=== PATIENT | male | born 1940 | race Caucasian/White ===

== ENCOUNTER 2016-08-16 18:03 | Emergency (ER) | payer MEDICARE, OTHER ==
[2016-08-16] MEDS ORDERED: Ondansetron 4 MG/2 ML SDV IVPUSH ONE (18:26)
[2016-08-16] MEDS ORDERED: Sodium Chloride 0.9% 1,000 ML IV SCH (18:30)
--- NOTE | 2016-08-16 18:56 | EDM.PDOC ---
<Dave Oden J - Last Filed: 08/16/16 18:51> ED HPI GENERAL MEDICAL PROBLEM - General Chief Complaint: Abdominal Pain Stated Complaint: CANT EAT RIGHT Time Seen by Provider: 08/16/16 18:26 - History of Present Illness INITIAL COMMENTS - FREE TEXT/NARRATIVE: HISTORY AND PHYSICAL: History of present illness: Patient is 75-year-old male history of diverticular disease who was treated approximately 2-3 weeks prior with an antibiotic for sore throat he states he had some GI distress at that time and a sense to recover his primary complaint relates to nausea and abdominal discomfort there've been no fever chills chest pain shortness breath or other concern Review of systems: As per history of present illness and below otherwise all systems reviewed and negative. Past medical history: As per history of present illness and as reviewed below otherwise noncontributory. Surgical history: As per history of present illness and as reviewed below otherwise noncontributory. Social history: No reported history of drug or alcohol abuse. Family history: As per history of present illness and as reviewed below otherwise noncontributory. Physical exam: HEENT: Atraumatic, normocephalic, pupils reactive, negative for conjunctival pallor or scleral icterus, mucous membranes moist, throat clear, neck supple, nontender, trachea midline. Lungs: Clear to auscultation, breath sounds equal bilaterally, chest nontender. Heart: S1S2, regular, negative for clicks, rubs, or JVD. Abdomen: Soft, protuberant with mild nonlocalized tenderness in lower abdomen. Negative for masses or hepatosplenomegaly. Negative for costovertebral tenderness. Pelvis: Stable nontender. Genitourinary: Deferred. Rectal: Deferred. Extremities: Atraumatic, negative for cords or calf pain. Neurovascular unremarkable. Neuro: Awake, alert, oriented. Cranial nerves II through XII unremarkable. Cerebellum unremarkable. Motor and sensory unremarkable throughout. Exam nonfocal. Diagnostics: CBC CMP amylase lipase UA EKG chest x-ray CT of abdomen/pelvis Therapeutics: Normal saline 1 L bolus Zofran 4 mg IV Impression: #1 abdominal pain #2 history of diverticular disease Definitive disposition and diagnosis as appropriate pending reevaluation and review of above. Abdominal Pain Score (Numeric/FACES): 7 - Related Data Allergies Allergy/AdvReac Type Severity Reaction Status Date / Time No Known Allergies Allergy Verified 09/01/13 16:21 Home Meds: Home Meds Metoprolol Succinate [Toprol XL] 50 mg PO DAILY 08/16/16 [History] Past Medical History HEENT History: Reports: Impaired Vision Cardiovascular History: Reports: Arrhythmia, High Cholesterol, Hypertension, Pacemaker Respiratory History: Reports: None Gastrointestinal History: Reports: Diverticulosis Genitourinary History: Reports: None Neurological History: Reports: None Psychiatric History: Reports: None Endocrine/Metabolic History: Reports: None Hematologic History: Reports: None Immunologic History: Reports: None Oncologic (Cancer) History: Reports: None Dermatologic History: Reports: None - Infectious Disease History Infectious Disease History: Reports: None - Past Surgical History Head Surgeries/Procedures: Reports: None GI Surgical History: Reports: Colonoscopy Social & Family History - Family History Family Medical History: Noncontributory - Tobacco Use Smoking Status *Q: Never Smoker Second Hand Smoke Exposure: No - Caffeine Use Caffeine Use: Reports: Coffee - Alcohol Use Days Per Week of Alcohol Use: 0 - Recreational Drug Use Recreational Drug Use: No ED ROS GENERAL - Review of Systems Review Of Systems: ROS reveals no pertinent complaints other than HPI. ED EXAM, GENERAL - Physical Exam Exam: See Below (Dictated) Course - Vital Signs Last Recorded V/S: Last Vital Signs Temp 36.7 C 08/16/16 18:14 Pulse 65 08/16/16 20:20 Resp 16 08/16/16 20:20 BP 181/88 H 08/16/16 20:20 Pulse Ox 97 08/16/16 20:20 - Orders/Labs/Meds Orders: Active Orders 24 hr Category Date Time Status EKG 12 Lead [EKG Documentation Completion] [RC] STAT Care 08/16/16 18:53 Active Abdomen Pelvis wo Cont [CT] Stat Exams 08/16/16 18:27 Taken Chest 2V [CR] Stat Exams 08/16/16 18:53 Taken CULTURE URINE [RM] Stat Lab 08/16/16 18:25 Received Ciprofloxacin [Ciprofloxacin HCl] Med 08/16/16 20:30 Once 500 mg PO ONETIME ONE Sodium Chloride 0.9% [Normal Saline] 1,000 ml Med 08/16/16 18:30 Active IV ASDIRECTED Medication Orders Ciprofloxacin (Ciprofloxacin Hcl) 500 mg PO ONETIME ONE Stop: 08/16/16 20:31 Sodium Chloride (Normal Saline) 1,000 mls @ 999 mls/hr IV ASDIRECTED [place] Last Admin: 08/16/16 18:33 Dose: 999 mls/hr Labs: Laboratory Tests 08/16/16 08/16/16 08/16/16 Range/Units 18:22 18:22 18:22 WBC 8.48 (4.0-11.0) K/uL RBC 4.90 (4.50-5.90) M/uL Hgb 13.8 (13.0-17.0) g/dL Hct 41.7 (38.0-50.0) % MCV 85.1 (80.0-98.0) fL MCH 28.2 (27.0-32.0) pg MCHC 33.1 (31.0-37.0) g/dL RDW Std Deviation 40.3 (28.0-62.0) fl RDW Coeff of Bambi 13 (11.0-15.0) % Plt Count 235 (150-400) K/uL MPV 10.00 (7.40-12.00) fL Neut % (Auto) 76.7 (48.0-80.0) % Lymph % (Auto) 13.4 L (16.0-40.0) % Coos % (Auto) 6.8 (0.0-15.0) % Eos % (Auto) 2.7 (0.0-7.0) % Baso % (Auto) 0.4 (0.0-1.5) % Neut # (Auto) 6.5 H (1.4-5.7) K/uL Lymph # (Auto) 1.1 (0.6-2.4) K/uL [place] # (Auto) 0.6 (0.0-0.8) K/uL Eos # (Auto) 0.2 (0.0-0.7) K/uL Baso # (Auto) 0.0 (0.0-0.1) K/uL Nucleated RBC % 0.0 /100WBC Nucleated RBCs # 0 K/uL Sodium 142 (136-146) mmol/L Potassium 4.3 (3.5-5.1) mmol/L Chloride 109 (98-110) mmol/L Carbon Dioxide 20 L (21-31) mmol/L BUN 21 (6.0-23.0) mg/dL Creatinine 1.3 (0.6-1.5) mg/dL Est Cr Clr Drug Dosing 50.61 mL/min Estimated GFR (MDRD) 54.1 ml/min Glucose 193 H (60-110) mg/dL Calcium 9.3 (8.8-10.8) mg/dL Total Bilirubin 0.3 (0.1-1.5) mg/dL AST 14 (5-40) IU/L ALT 20 (8-54) IU/L Alkaline Phosphatase 56 (40-150) Creatine Kinase (9-236) IU/L CK-MB (CK-2) (0-6.6) ng/ml Troponin I < 0.10 (0.0-0.29) NG/ML Total Protein 7.1 (6.0-8.0) g/dL Albumin 4.3 (3.4-4.8) g/dL Globulin 2.8 (2.0-3.5) g/dL Albumin/Globulin Ratio 1.5 (1.3-2.8) Amylase 59 (10-90) U/L Lipase 43 (7-80) U/L Urine Color Urine Appearance Urine pH (5.0-8.0) Ur Specific [place] (1.001-1.035) Urine Protein (NEGATIVE) mg/dL Urine Glucose (UA) (NEGATIVE) mg/dL Urine Ketones (NEGATIVE) mg/dL Urine Occult Blood (NEGATIVE) Urine Nitrite (NEGATIVE) Urine Bilirubin (NEGATIVE) Urine Urobilinogen (<2.0) EU/dL Ur Leukocyte Esterase (NEGATIVE) Urine RBC (0-2/HPF) Urine WBC (0-5/HPF) Ur Epithelial Cells (NONE-FEW) Urine Bacteria (NEGATIVE) 08/16/16 08/16/16 Range/Units 18:22 18:25 WBC (4.0-11.0) K/uL RBC (4.50-5.90) M/uL Hgb (13.0-17.0) g/dL Hct (38.0-50.0) % MCV (80.0-98.0) fL MCH (27.0-32.0) pg MCHC (31.0-37.0) g/dL RDW Std Deviation (28.0-62.0) fl RDW Coeff of Bambi (11.0-15.0) % Plt Count (150-400) K/uL MPV (7.40-12.00) fL Neut % (Auto) (48.0-80.0) % Lymph % (Auto) (16.0-40.0) % Coos % (Auto) (0.0-15.0) % Eos % (Auto) (0.0-7.0) % Baso % (Auto) (0.0-1.5) % Neut # (Auto) (1.4-5.7) K/uL Lymph # (Auto) (0.6-2.4) K/uL [place] # (Auto) (0.0-0.8) K/uL Eos # (Auto) (0.0-0.7) K/uL Baso # (Auto) (0.0-0.1) K/uL Nucleated RBC % /100WBC Nucleated RBCs # K/uL Sodium (136-146) mmol/L Potassium (3.5-5.1) mmol/L Chloride (98-110) mmol/L Carbon Dioxide (21-31) mmol/L BUN (6.0-23.0) mg/dL Creatinine (0.6-1.5) mg/dL Est Cr Clr Drug Dosing mL/min Estimated GFR (MDRD) ml/min Glucose (60-110) mg/dL Calcium (8.8-10.8) mg/dL Total Bilirubin (0.1-1.5) mg/dL AST (5-40) IU/L ALT (8-54) IU/L Alkaline Phosphatase (40-150) Creatine Kinase 69 (9-236) IU/L CK-MB (CK-2) 1.7 (0-6.6) ng/ml Troponin I (0.0-0.29) NG/ML Total Protein (6.0-8.0) g/dL Albumin (3.4-4.8) g/dL Globulin (2.0-3.5) g/dL Albumin/Globulin Ratio (1.3-2.8) Amylase (10-90) U/L Lipase (7-80) U/L Urine Color YELLOW Urine Appearance CLEAR Urine pH 6.0 (5.0-8.0) Ur Specific [place] 1.020 (1.001-1.035) Urine Protein NEGATIVE (NEGATIVE) mg/dL Urine Glucose (UA) NEGATIVE (NEGATIVE) mg/dL Urine Ketones NEGATIVE (NEGATIVE) mg/dL Urine Occult Blood TRACE-INTACT (NEGATIVE) Urine Nitrite NEGATIVE (NEGATIVE) Urine Bilirubin NEGATIVE (NEGATIVE) Urine Urobilinogen 0.2 (<2.0) EU/dL Ur Leukocyte Esterase NEGATIVE (NEGATIVE) Urine RBC 0-2 (0-2/HPF) Urine WBC 0-1 (0-5/HPF) Ur Epithelial Cells RARE (NONE-FEW) Urine Bacteria RARE (NEGATIVE) Meds: Medications Generic Name Dose Route Start Last Admin Trade Name Freq PRN Reason Stop Dose Admin Ciprofloxacin 500 mg 08/16/16 20:30 Ciprofloxacin Hcl PO 08/16/16 20:31 ONETIME ONE Sodium Chloride 1,000 mls @ 999 mls/hr 08/16/16 18:30 08/16/16 18:33 Normal Saline IV 999 mls/hr ASDIRECTED [place] Administration Discontinued Medications Generic Name Dose Route Start Last Admin Trade Name Freq PRN Reason Stop Dose Admin Ondansetron HCl 4 mg 08/16/16 18:26 08/16/16 18:34 Zofran IVPUSH 08/16/16 18:27 4 mg ONETIME ONE Administration Departure - Departure Disposition: Home, Self-Care 01 Clinical Impression: Abdominal pain, Nausea - Discharge Information Referrals: PCP,None [Primary Care Provider] - Forms: ED Department Discharge Additional Instructions: Medications as prescribed Return if symptoms persist or worsen or new concerning symptoms develop Urine cultures pending at this time Followup with primary care as scheduled at [facility] on Tuesday The following information is given to patients seen in the emergency department who are being discharged to home. This information is to outline your options for follow-up care. We provide all patients seen in our emergency department with a follow-up referral. The need for follow-up, as well as the timing and circumstances, are variable depending upon the specifics of your emergency department visit. If you don't have a primary care physician on staff, we will provide you with a referral. We always advise you to contact your personal physician following an emergency department visit to inform them of the circumstance of the visit and for follow-up with them and/or the need for any referrals to a consulting specialist. The emergency department will also refer you to a specialist when appropriate. This referral assures that you have the opportunity for follow-up care with a specialist. All of these measure are taken in an effort to provide you with optimal care, which includes your follow-up. Under all circumstances we always encourage you to contact your private physician who remains a resource for coordinating your care. When calling for follow-up care, please make the office aware that this follow-up is from your recent emergency room visit. If for any reason you are refused follow-up, please contact the [facility] emergency department at and asked to speak to the emergency department charge nurse. - My Orders Last 24 Hours: My Active Orders 08/16/16 18:25 CULTURE URINE [RM] Stat 08/16/16 20:30 Ciprofloxacin [Ciprofloxacin HCl] 500 mg PO ONETIME ONE - Assessment/Plan Last 24 Hours: My Active Orders 08/16/16 18:25 CULTURE URINE [RM] Stat 08/16/16 20:30 Ciprofloxacin [Ciprofloxacin HCl] 500 mg PO ONETIME ONE <Zeb Patricia - Last Filed: 08/16/16 20:36> ED HPI GENERAL MEDICAL PROBLEM - History of Present Illness INITIAL COMMENTS - FREE TEXT/NARRATIVE: Patient confirms above history, he is since treated with saline bolus and Zofran as above, and feeling much better from a nausea standpoint, he has had some intermittent low abdominal pain, lab as returned completely within normal limits including cardiac enzymes, CT abdomen pelvis to support a acute UTI which is ascending to the right kidney. His urinalysis is only significant for trace blood culture to this Again no fever nausea vomiting chills sweats no chest pain shortness breath headache dizziness or palpitation no bowel or urine symptoms this is post fluids and Zofran General no acute distress HEENT grossly within normal limits Chest clear throughout CV regular rate and rhythm Abdomen soft nontender on my exam Extremities full range of motion strength 5 out of 5 no edema [employer] alert nonfocal Lab as below CT abdomen pelvis EKG Chest x-ray Assessment CT evidence of ascending urinary tract infection Nausea resolved Plan Cipro 500 by mouth now and twice a day 10 days Zofran prescription provided Patient will be following up with his new primary provider Dr. Soria at [facility] in 2 days He did have a left bundle branch block on EKG I do not have an EKG for comparison at this time, although he does have known cardiac history followed by cardiology with a pacemaker placed Return if symptoms persist or worsen Medications as prescribed Followup with primary care and schedule Departure - Departure Time of Disposition: 20:35 Condition: good
[2016-08-16] MEDS ORDERED: Ciprofloxacin 500 MG Tab PO ONE (20:30)
[2016-08-16 20:44] VITALS: BP 182/89
--- NOTE | 2016-08-17 11:50 | CT ---
EXAM DATE: 08/16/16 PATIENT'S AGE: 75 Patient: CASIMIRO NUGENT Facility: [place], [place] Site . Site : 1940 Study: CT Abdomen/Pelvis [id number]/22/2017 7:22:20 PM Ordering Physician: Akshat Acosta Final Report: INDICATION: Abdominal pain. History of diverticulitis. Technique: CT abdomen and pelvis performed without oral IV contrast. Findings: Pacemaker leads in the heart. Osteopenia. Colonic diverticulosis without evidence diverticulitis. Contracted gallbladder with mild nonspecific stranding about the gallbladder. Moderate prostatic enlargement. Platelike atelectasis or scarring in both lungs. Mild patchy the ground-glass opacity in the in the mid and lower lungs the may be inflammatory or postinflammatory. Few tiny nodules in the lungs. Scattered the lesions involving both kidneys vary from low in density to nearly isodense. The low-density lesions are benign renal cysts. One isodense lesion which is slightly low-dense lesion in the left kidney on image 51 has Hounsfield density measurements of 11-12 should be a complex benign cyst and measures 2.4 cm. Benign nodular thickening right adrenal gland likely related to hyperplasia or adenomas. Nodular thickening of the low left adrenal gland likely related to similar etiology with more distinct 1.4 cm nodule in the left adrenal likely an adenoma. Mild soft tissue stranding about the right kidney and mid and proximal ureter without an identifiable ureteral stone to account for these findings. Findings suspicious for acute inflammation or edema of the right kidney. Acute pyelitis or pyelonephritis should be considered and excluded. Clinical and laboratory correlation recommended. If further imaging is desired to further characterize this and IV contrast-enhanced study could evaluate the right renal parenchyma for changes of pyelonephritis. Small cluster of focal high density in the right lower kidney measures 8 mm and is likely a collection of stones. Mild prominence of the right renal pelvis. Increase number of small lymph nodes in the abdomen and pelvis are not enlarged by CT criteria but are abnormally increased in number. The appendix is normal. Remainder negative. Impression: 1. Mild soft tissue stranding about the right kidney which is heterogeneous with the soft tissue stranding extending caudally along the right renal pelvis and the right mid and proximal ureter into the upper pelvis. The wall of the right ureter and renal pelvis may be mildly thickened. Findings most consistent with acute ascending urinary tract infection such as acute pyelitis and/or pyelonephritis. Clinical and laboratory correlation recommended. If it is desired CT with IV contrast could be performed to attempt to confirm these diagnoses. 2. Small fat containing periumbilical anterior abdominal wall hernia was not described above. 3. Small hyperdensity in the right lower kidney is likely a stone or cluster of stones. 4. Colonic diverticulosis. 5. Moderate prostatic enlargement. 6. Few small indeterminate nodules in the lung bases with patchy ground-glass opacity within the lung bases which is likely inflammatory or postinflammatory. 7. Bilateral renal cystic lesions varying from simple 2 benign complex cysts. 8. Nodularity in both adrenal glands indeterminate but most likely adenomas. Please note that all CT scans at this facility use dose modulation, iterative reconstruction, and/or weight-based dosing when appropriate to reduce radiation dose to as low as reasonably achievable. Dictated by Santino Pulliam MD @ Aug 16 2016 8:13PM (Electronic Signature) Report Signed by Proxy. PARDEEP
--- NOTE | 2016-08-17 11:51 | CR ---
EXAM DATE: 08/16/16 PATIENT'S AGE: 75 Patient: CASIMIRO NUGENT Facility: [place], [place] Site . Site : 1940 Study: XRay Chest [id number]/22/2017 7:22:34 PM Ordering Physician: Akshat Acosta Final Report: INDICATION: Abdominal pain TECHNIQUE: Chest 2 views. COMPARISON: None FINDINGS: Cardiovascular and mediastinum: Heart size and vasculature are normal in caliber and appearance. Mediastinum is within normal limits. Left-sided transvenous pacer device Lungs and pleural spaces: Lungs are clear. No sign of infiltrate or mass. No sign of pleural effusion. No pneumothorax. Bones and soft tissues: No significant findings. IMPRESSION: Unremarkable chest. Dictated by Taurus Campa MD @ 08/16/2016 8:06:40 PM Dictated by: Taurus Campa MD @ 08/16/2016 20:06:47 (Electronic Signature) Report Signed by Proxy. PARDEEP
== END 2016-08-16 20:40 | disposition home or self-care (01) ==
LOC: MW.ED 18:03
DX: R10.30 Lower abdominal pain, unspecified (principal); R11.0 Nausea; E78.00 Pure hypercholesterolemia, unspecified; I10 Essential (primary) hypertension
CPT/HCPCS: 36415; 71020; 74176; 80053; 81001; 82150; 82550; 82553; 83690; 84484; 85025; 87086; 93005; 96361; 96374; 99284; A9270; J2405; J7040

== ENCOUNTER 2016-12-07 04:20 | Observation (INO) | payer MEDICARE, OTHER ==
[2016-12-07] MEDS ORDERED: Sodium Chloride 0.9% 2.5 ML Syringe FLUSH PRN ×2 (04:28→07:48)
[2016-12-07] MEDS ORDERED: Nitroglycerin 2% Oint 1 GM UD Packet TOP ONE (04:28)
[2016-12-07] MEDS ORDERED: Sodium Chloride 0.9% 10 ML Syringe FLUSH PRN ×2 (04:28→07:48)
[2016-12-07] MEDS ORDERED: Sodium Chloride 0.9% 1,000 ML IV ONE (04:28)
[2016-12-07] MEDS ORDERED: Aspirin 81 MG Tab.Chew PO ONE (04:28)
--- NOTE | 2016-12-07 04:28 | EDM.PDOC ---
ED HPI GENERAL MEDICAL PROBLEM - General Stated Complaint: CHEST PAIN Time Seen by Provider: 12/07/16 04:26 - History of Present Illness INITIAL COMMENTS - FREE TEXT/NARRATIVE: HISTORY AND PHYSICAL: History of present illness: Patient is 76-year-old white male history of hypertension who presents with a concern of left chest pain he describes is in his axillary region he states it' s worse with deep breathing vaguely described no associated palpitations diaphoresis there is shortness of breath he denies prior stroke or heart attack he denies history of DVT or pulmonary embolism he denies trauma patient states he has a history of renal cell cancer and gets treatment here but can give no specifics Review of systems: As per history of present illness and below otherwise all systems reviewed and negative. Past medical history: As per history of present illness and as reviewed below otherwise noncontributory. Surgical history: As per history of present illness and as reviewed below otherwise noncontributory. Social history: No reported history of drug or alcohol abuse. Family history: As per history of present illness and as reviewed below otherwise noncontributory. Physical exam: HEENT: Atraumatic, normocephalic, pupils reactive, negative for conjunctival pallor or scleral icterus, mucous membranes moist, throat clear, neck supple, nontender, trachea midline. Lungs: Slightly diminished, breath sounds equal bilaterally, chest nontender. Heart: S1S2, regular, negative for clicks, rubs, or JVD. Abdomen: Soft, nondistended, nontender. Negative for masses or hepatosplenomegaly. Negative for costovertebral tenderness. Pelvis: Stable nontender. Genitourinary: Deferred. Rectal: Deferred. Extremities: Atraumatic, negative for cords or calf pain. Neurovascular unremarkable. Neuro: Awake, alert, oriented. Cranial nerves II through XII unremarkable. Cerebellum unremarkable. Motor and sensory unremarkable throughout. Exam nonfocal. Diagnostics: CBC CMP PT/INR troponin d-dimer chest x-ray EKG Therapeutics: IV O2 monitor Nitropaste 1 inch morphine sulfate 2 mg IV Zofran 4 mg IV aspirin 325 mg Impression: #1 chest pain #2 history of hypertension Definitive disposition and diagnosis as appropriate pending reevaluation and review of above. Left Chest Pain Score (Numeric/FACES): 8 - Related Data Allergies Allergy/AdvReac Type Severity Reaction Status Date / Time No Known Allergies Allergy Verified 12/07/16 04:36 Home Meds: Home Meds Metoprolol Succinate [Toprol XL] 50 mg PO DAILY 08/16/16 [History] Pazopanib HCl [Votrient] 800 mg PO DAILY 12/07/16 [History] Past Medical History HEENT History: Reports: Impaired Vision Cardiovascular History: Reports: Arrhythmia, High Cholesterol, Hypertension, Pacemaker Respiratory History: Reports: None Gastrointestinal History: Reports: Diverticulosis Genitourinary History: Reports: None Neurological History: Reports: None Psychiatric History: Reports: None Endocrine/Metabolic History: Reports: None Hematologic History: Reports: None Immunologic History: Reports: None Oncologic (Cancer) History: Reports: None Dermatologic History: Reports: None - Infectious Disease History Infectious Disease History: Reports: None - Past Surgical History Head Surgeries/Procedures: Reports: None GI Surgical History: Reports: Colonoscopy Social & Family History - Family History Family Medical History: Noncontributory - Tobacco Use Smoking Status *Q: Never Smoker Second Hand Smoke Exposure: No - Caffeine Use Caffeine Use: Reports: Coffee - Alcohol Use Days Per Week of Alcohol Use: 0 - Recreational Drug Use Recreational Drug Use: No ED ROS GENERAL - Review of Systems Review Of Systems: ROS reveals no pertinent complaints other than HPI. ED EXAM, GENERAL - Physical Exam Exam: See Below (Dictation) Course - Vital Signs Last Recorded V/S: Last Vital Signs Temp 36.3 C 12/07/16 04:29 Pulse 65 12/07/16 05:54 Resp 14 12/07/16 05:54 BP 131/90 12/07/16 05:54 Pulse Ox 97 12/07/16 05:54 - Orders/Labs/Meds Orders: Active Orders 24 hr Category Date Time Status Cardiac Monitoring [RC] . DIRECTED Care 12/07/16 04:28 Active EKG Documentation Completion [RC] STAT Care 12/07/16 04:29 Active Oxygen Therapy [RC] ASDIRECTED Care 12/07/16 04:28 Active Ang Chest [CT] Stat Exams 12/07/16 04:28 Taken Chest 1V Frontal [CR] Stat Exams 12/07/16 04:28 Taken Sodium Chloride 0.9% [Normal Saline] 1,000 ml Med 12/07/16 04:28 Active IV .Bolus Sodium Chloride 0.9% [Saline Flush] Med 12/07/16 04:28 Active 10 ml FLUSH ASDIRECTED PRN Sodium Chloride 0.9% [Saline Flush] Med 12/07/16 04:28 Active 2.5 ml FLUSH ASDIRECTED PRN Saline Lock Insert [OM.PC] Stat Oth 12/07/16 04:28 Ordered Medication Orders Sodium Chloride (Normal Saline) 1,000 mls @ 125 mls/hr IV .Bolus ONE Stop: 12/07/16 12:27 Last Admin: 12/07/16 04:39 Dose: 125 mls/hr Sodium Chloride (Saline Flush) 10 ml FLUSH ASDIRECTED PRN PRN Reason: Keep Vein Open Sodium Chloride (Saline Flush) 2.5 ml FLUSH ASDIRECTED PRN PRN Reason: Keep Vein Open Labs: Laboratory Tests 12/07/16 12/07/16 12/07/16 Range/Units 04:25 04:25 04:25 WBC 6.21 (4.0-11.0) K/uL RBC 5.12 (4.50-5.90) M/uL Hgb 15.6 (13.0-17.0) g/dL Hct 45.0 (38.0-50.0) % MCV 87.9 (80.0-98.0) fL MCH 30.5 (27.0-32.0) pg MCHC 34.7 (31.0-37.0) g/dL RDW Std Deviation 60.1 (28.0-62.0) fl RDW Coeff of Bambi 19 H (11.0-15.0) % Plt Count 163 (150-400) K/uL MPV 10.40 (7.40-12.00) fL Neut % (Auto) 60.1 (48.0-80.0) % Lymph % (Auto) 25.8 (16.0-40.0) % [place] % (Auto) 8.4 (0.0-15.0) % Eos % (Auto) 5.2 (0.0-7.0) % Baso % (Auto) 0.5 (0.0-1.5) % Neut # (Auto) 3.7 (1.4-5.7) K/uL Lymph # (Auto) 1.6 (0.6-2.4) K/uL [place] # (Auto) 0.5 (0.0-0.8) K/uL Eos # (Auto) 0.3 (0.0-0.7) K/uL Baso # (Auto) 0.0 (0.0-0.1) K/uL Nucleated RBC % 0.0 /100WBC Nucleated RBCs # 0 K/uL INR 1.03 (0.86-1.11) D-Dimer, Quantitative 1.32 H (0.0-0.52) mg/LFEU Sodium 140 (136-146) mmol/L Potassium 4.3 (3.5-5.1) mmol/L Chloride 108 (98-110) mmol/L Carbon Dioxide 21 (21-31) mmol/L BUN 25 H (6.0-23.0) mg/dL Creatinine 1.1 (0.6-1.5) mg/dL Est Cr Clr Drug Dosing 52.83 mL/min Estimated GFR (MDRD) > 60.0 ml/min Glucose 103 (60-110) mg/dL Calcium 9.1 (8.8-10.8) mg/dL Total Bilirubin 1.1 (0.1-1.5) mg/dL AST 33 (5-40) IU/L ALT 49 (8-54) IU/L Alkaline Phosphatase 61 (40-150) CK-MB (CK-2) (0-6.6) ng/ml Troponin I (0.0-0.29) NG/ML Total Protein 6.7 (6.0-8.0) g/dL Albumin 3.8 (3.4-4.8) g/dL Globulin 2.9 (2.0-3.5) g/dL Albumin/Globulin Ratio 1.3 (1.3-2.8) 12/07/16 12/07/16 Range/Units 04:25 04:25 WBC (4.0-11.0) K/uL RBC (4.50-5.90) M/uL Hgb (13.0-17.0) g/dL Hct (38.0-50.0) % MCV (80.0-98.0) fL MCH (27.0-32.0) pg MCHC (31.0-37.0) g/dL RDW Std Deviation (28.0-62.0) fl RDW Coeff of Bambi (11.0-15.0) % Plt Count (150-400) K/uL MPV (7.40-12.00) fL Neut % (Auto) (48.0-80.0) % Lymph % (Auto) (16.0-40.0) % [place] % (Auto) (0.0-15.0) % Eos % (Auto) (0.0-7.0) % Baso % (Auto) (0.0-1.5) % Neut # (Auto) (1.4-5.7) K/uL Lymph # (Auto) (0.6-2.4) K/uL [place] # (Auto) (0.0-0.8) K/uL Eos # (Auto) (0.0-0.7) K/uL Baso # (Auto) (0.0-0.1) K/uL Nucleated RBC % /100WBC Nucleated RBCs # K/uL INR (0.86-1.11) D-Dimer, Quantitative (0.0-0.52) mg/LFEU Sodium (136-146) mmol/L Potassium (3.5-5.1) mmol/L Chloride (98-110) mmol/L Carbon Dioxide (21-31) mmol/L BUN (6.0-23.0) mg/dL Creatinine (0.6-1.5) mg/dL Est Cr Clr Drug Dosing mL/min Estimated GFR (MDRD) ml/min Glucose (60-110) mg/dL Calcium (8.8-10.8) mg/dL Total Bilirubin (0.1-1.5) mg/dL AST (5-40) IU/L ALT (8-54) IU/L Alkaline Phosphatase (40-150) CK-MB (CK-2) 2.4 (0-6.6) ng/ml Troponin I < 0.10 (0.0-0.29) NG/ML Total Protein (6.0-8.0) g/dL Albumin (3.4-4.8) g/dL Globulin (2.0-3.5) g/dL Albumin/Globulin Ratio (1.3-2.8) Meds: Medications Generic Name Dose Route Start Last Admin Trade Name Freq PRN Reason Stop Dose Admin Sodium Chloride 1,000 mls @ 125 mls/hr 12/07/16 04:28 12/07/16 04:39 Normal Saline IV 12/07/16 12:27 125 mls/hr .Bolus ONE Administration Sodium Chloride 10 ml 12/07/16 04:28 Saline Flush FLUSH ASDIRECTED PRN Keep Vein Open Sodium Chloride 2.5 ml 12/07/16 04:28 Saline Flush FLUSH ASDIRECTED PRN Keep Vein Open Discontinued Medications Generic Name Dose Route Start Last Admin Trade Name Elvira PRN Reason Stop Dose Admin Aspirin 324 mg 12/07/16 04:28 12/07/16 04:39 Aspirin PO 12/07/16 04:29 324 mg ONETIME ONE Administration Enoxaparin Sodium 60 mg 12/07/16 06:00 Lovenox SUBCUT 12/07/16 06:01 ONETIME ONE Morphine Sulfate 2 mg 12/07/16 04:32 12/07/16 04:39 Morphine IVPUSH 12/07/16 04:33 2 mg ONETIME ONE Administration Nitroglycerin 1 gm 12/07/16 04:28 12/07/16 04:40 Nitro-Bid 2% TOP 12/07/16 04:29 1 gm ONETIME ONE Administration Ondansetron HCl 4 mg 12/07/16 04:32 12/07/16 04:39 Zofran IVPUSH 12/07/16 04:33 4 mg ONETIME ONE Administration Departure - Departure Time of Disposition: 06:05 Disposition: Admitted As Inpatient 68 Condition: Good Clinical Impression: Pulmonary embolism, Renal cell cancer - Discharge Information Referrals: Booker Xie MD [Primary Care Provider] - - My Orders Last 24 Hours: My Active Orders 12/07/16 04:28 Cardiac Monitoring [RC] . DIRECTED Oxygen Therapy [RC] ASDIRECTED Ang Chest [CT] Stat Chest 1V Frontal [CR] Stat Sodium Chloride 0.9% [Normal Saline] 1,000 ml IV .Bolus Sodium Chloride 0.9% [Saline Flush] 10 ml FLUSH ASDIRECTED PRN Sodium Chloride 0.9% [Saline Flush] 2.5 ml FLUSH ASDIRECTED PRN Saline Lock Insert [OM.PC] Stat 12/07/16 04:29 EKG Documentation Completion [RC] STAT - Assessment/Plan Last 24 Hours: My Active Orders 12/07/16 04:28 Cardiac Monitoring [RC] . DIRECTED Oxygen Therapy [RC] ASDIRECTED Ang Chest [CT] Stat Chest 1V Frontal [CR] Stat Sodium Chloride 0.9% [Normal Saline] 1,000 ml IV .Bolus Sodium Chloride 0.9% [Saline Flush] 10 ml FLUSH ASDIRECTED PRN Sodium Chloride 0.9% [Saline Flush] 2.5 ml FLUSH ASDIRECTED PRN Saline Lock Insert [OM.PC] Stat 12/07/16 04:29 EKG Documentation Completion [RC] STAT
[2016-12-07] MEDS ORDERED: Ondansetron 4 MG/2 ML SDV IVPUSH ONE (04:32)
[2016-12-07] MEDS ORDERED: Morphine 2 MG/ML Syringe IVPUSH ONE (04:32)
[2016-12-07 04:59] LABS: CHLORIDE,CL 108 mmol/L (98-110); SODIUM,NA 140 mmol/L (136-146)
[2016-12-07] MEDS ORDERED: Enoxaparin 60 MG/0.6 ML Syringe SUBCUT ONE (06:00)
[2016-12-07] MEDS ORDERED: Iopamidol 755 Mg/ML 100 ML Bottle IVPUSH STA (06:09)
[2016-12-07] MEDS ORDERED: Temazepam 15 MG Cap PO PRN (07:48)
[2016-12-07] MEDS ORDERED: Ondansetron 4 MG Tab.DIS PO PRN (07:48)
[2016-12-07] MEDS ORDERED: Docusate Sodium 100 MG Cap PO PRN (07:48)
[2016-12-07] MEDS ORDERED: HYDROmorphone 2 MG/ML Syringe IVPUSH PRN (07:48)
[2016-12-07] MEDS ORDERED: Acetaminophen 325 MG Tab PO PRN (07:48)
[2016-12-07] MEDS ORDERED: PAZOPANIB HCL 200 MG PO SCH (09:00)
[2016-12-07] MEDS ORDERED: Metoprolol Succinate 50 MG Tab.ER PO SCH (09:00)
--- NOTE | 2016-12-07 09:20 | PCM.HP ---
H&P History of Present Illness - General Date of Service: 12/07/16 Admit Problem/Dx: Admission Diagnosis/Problem Admission Diagnosis/Problem Pulmonary embolism Source of Information: Patient, Family History Limitations: Reports: No Limitations - History of Present Illness Initial Comments - Free Text/Narative: The patient is a 76-year-old gentleman is presented to the emergency room with chest pain. The patient reports that he has had left-sided chest pain which radiates into his arm and it has been worsened by deep breathing. The patient had no other associated symptoms. The patient underwent CT scan in the emergency department and was found to have small multiple pulmonary emboli as well as worsening of previously noted nodule. The patient does have a history of renal cell carcinoma and is currently undergoing chemotherapy. The patient also has had a pacemaker implanted in 2013. Onset of Symptoms: Reports: Gradual Duration of Symptoms: Reports: Day(s): Location: Reports: Chest Quality: Reports: Ache, Stabbing Severity: Mild Improves with: Reports: None Worsens with: Reports: Breathing Associated Symptoms: Reports: Shortness of Breath Left Chest Pain Score (Numeric/FACES): 1 - Related Data Allergies/Adverse Reactions: Allergies Allergy/AdvReac Type Severity Reaction Status Date / Time No Known Allergies Allergy Verified 12/07/16 04:36 Home Medications: Home Meds Metoprolol Succinate [Toprol XL] 50 mg PO DAILY 08/16/16 [History] Pazopanib HCl [Votrient] 800 mg PO DAILY 12/07/16 [History] Past Medical History HEENT History: Reports: Impaired Vision Cardiovascular History: Reports: Arrhythmia, High Cholesterol, Hypertension, Pacemaker Respiratory History: Reports: None Gastrointestinal History: Reports: Diverticulosis Genitourinary History: Reports: None Other Genitourinary History: renal cancer Neurological History: Reports: None Psychiatric History: Reports: None Endocrine/Metabolic History: Reports: None Hematologic History: Reports: None Immunologic History: Reports: None Oncologic (Cancer) History: Reports: Renal Dermatologic History: Reports: None - Infectious Disease History Infectious Disease History: Reports: Measles, Mumps - Past Surgical History Head Surgeries/Procedures: Reports: None GI Surgical History: Reports: Colonoscopy Social & Family History - Family History Family Medical History: Noncontributory - Tobacco Use Smoking Status *Q: Never Smoker Second Hand Smoke Exposure: No - Caffeine Use Caffeine Use: Reports: Tea, Other Other Caffeine Use: gatorade - Alcohol Use Days Per Week of Alcohol Use: 0 - Recreational Drug Use Recreational Drug Use: No H&P Review of Systems - Review of Systems: Review Of Systems: See Below General: Reports: Weakness, Fatigue HEENT: Reports: No Symptoms Pulmonary: Reports: Shortness of Breath, Pleuritic Chest Pain Cardiovascular: Reports: Chest Pain Gastrointestinal: Reports: No Symptoms Genitourinary: Reports: No Symptoms Musculoskeletal: Reports: No Symptoms Skin: Reports: No Symptoms Psychiatric: Reports: No Symptoms Neurological: Reports: No Symptoms Hematologic/Lymphatic: Reports: No Symptoms Immunologic: Reports: No Symptoms Exam - Exam Exam: See Below - Vital Signs Vital Signs: Last Vital Signs Temp 36.4 C 12/07/16 08:00 Pulse 60 12/07/16 08:00 Resp 18 12/07/16 08:00 BP 166/86 H 12/07/16 08:00 Pulse Ox 98 12/07/16 08:00 Weight: 69.6 kg - Exam Quality Assessment: Supplemental Oxygen General: Alert, Oriented, Cooperative HEENT: Conjunctiva Clear, Mucosa Moist & [place], Nares Patent Neck: Supple, Trachea Midline Lungs: Normal Respiratory Effort, Rhonchi Cardiovascular: Regular Rate, Regular Rhythm GI/Abdominal Exam: Normal Bowel Sounds, Soft, Non-Tender, No Distention Back Exam: Decreased Range of Motion Extremities: Normal Inspection, No Pedal Edema Skin: Warm, Dry Neurological: Cranial Nerves Intact Neuro Extensive - Mental Status: Alert, Oriented x3 Psychiatric: Alert, Normal Affect, Normal Mood - Patient Data Result Diagrams: 12/08/16 04:30 12/08/16 04:30 EKG INTERPRETATION EKG Interpretation Comments: Paced rhythm *Q Meaningful Use (ADM) - VTE *Q VTE Criteria *Q: - Stroke *Q Stroke Criteria *Q: - AMI *Q AMI Criteria *Q: - Problem List (1) Pulmonary embolism SNOMED Code(s): 41585947, 47519797 ICD Code: I26.99 - OTHER PULMONARY EMBOLISM WITHOUT ACUTE COR PULMONALE Status: Acute Priority: High Current Visit: Yes Qualifiers: Chronicity: acute Acute cor pulmonale presence: without acute cor pulmonale (2) Pacemaker SNOMED Code(s): 555188180, 274593987 ICD Code: Z95.0 - PRESENCE OF CARDIAC PACEMAKER Status: Chronic Priority : High Current Visit: Yes (3) Renal cell cancer SNOMED Code(s): 768834784, 385405831 ICD Code: C64.9 - MALIGNANT NEOPLASM OF UNSP KIDNEY, EXCEPT RENAL PELVIS Status: Chronic Priority: High Current Visit: Yes Qualifiers: Laterality: right Qualified Code(s): C64.1 - Malignant neoplasm of right kidney, except renal pelvis Problem List Initiated/Reviewed/Updated: Yes Orders Last 24hrs: Active Orders 24 hr Category Date Time Status Patient Status [ADT] Routine ADT 12/07/16 07:48 Active Cardiac Monitoring [RC] CONTINUOUS Care 12/07/16 07:49 Active Oxygen Therapy [RC] PRN Care 12/07/16 07:48 Active Telemetry Monitoring [Cardiac Monitoring] [RC] . Care 12/07/16 08:30 Active DIRECTED Up With Assistance [RC] ASDIRECTED Care 12/07/16 07:48 Active VTE/DVT Education [RC] PER UNIT ROUTINE Care 12/07/16 07:48 Active Vaccines to be Administered [RC] PER UNIT ROUTINE Care 12/07/16 07:51 Active Vital Signs [RC] Q4H Care 12/07/16 07:48 Active Regular Diet [DIET] Diet 12/07/16 Lunch Active Echo Comp wo Cont [US] Routine Exams 12/07/16 08:23 Ordered Acetaminophen [Tylenol] Med 12/07/16 07:48 Active 650 mg PO Q4H PRN Docusate Sodium [Colace] Med 12/07/16 07:48 Active 100 mg PO BID PRN Enoxaparin [Lovenox] Med 12/07/16 18:00 Active 70 mg SUBCUT Q12H HYDROmorphone [Dilaudid] Med 12/07/16 07:48 Active 0.5 mg IVPUSH Q2H PRN Metoprolol Succinate [Toprol XL] Med 12/07/16 09:00 Active 50 mg PO DAILY Ondansetron [Zofran ODT] Med 12/07/16 07:48 Active 4 mg PO Q6H PRN Patient's Own Medication [Ptom] Med 12/07/16 09:00 Active 4 each PO DAILY Sodium Chloride 0.9% [Saline Flush] Med 12/07/16 07:48 Active 10 ml FLUSH ASDIRECTED PRN Sodium Chloride 0.9% [Saline Flush] Med 12/07/16 07:48 Active 2.5 ml FLUSH ASDIRECTED PRN Temazepam [Restoril] Med 12/07/16 07:48 Active 15 mg PO BEDTIME PRN oxyCODONE Med 12/07/16 07:48 Active 5 mg PO Q4H PRN GM Immunization Reflex [OM.PC] Click To Edit Oth 12/07/16 07:48 Ordered Saline Lock Insert [OM.PC] Routine Oth 12/07/16 07:48 Ordered Resuscitation Status Routine Resus Stat 12/07/16 07:48 Ordered Medication Orders Acetaminophen (Tylenol) 650 mg PO Q4H PRN PRN Reason: Pain (Mild 1-3)/fever Docusate Sodium (Colace) 100 mg PO BID PRN PRN Reason: Constipation Enoxaparin Sodium (Lovenox) 70 mg SUBCUT Q12H [place] Stop: 12/13/16 06:00 Hydromorphone HCl (Dilaudid) 0.5 mg IVPUSH Q2H PRN PRN Reason: Pain (severe 7-10) Sodium Chloride (Normal Saline) 1,000 mls @ 125 mls/hr IV .Bolus ONE Stop: 12/07/16 12:27 Last Admin: 12/07/16 04:39 Dose: 125 mls/hr Metoprolol Succinate (Toprol Xl) 50 mg PO DAILY [facility] Ondansetron HCl (Zofran Odt) 4 mg PO Q6H PRN PRN Reason: nausea, able to take PO Oxycodone HCl (Oxycodone) 5 mg PO Q4H PRN PRN Reason: Pain (moderate 4-6) Pazopanib Hcl [ (Votrient] 200 Mg) 4 each PO DAILY [facility] Sodium Chloride (Saline Flush) 10 ml FLUSH ASDIRECTED PRN PRN Reason: Keep Vein Open Sodium Chloride (Saline Flush) 2.5 ml FLUSH ASDIRECTED PRN PRN Reason: Keep Vein Open Sodium Chloride (Saline Flush) 10 ml FLUSH ASDIRECTED PRN PRN Reason: Keep Vein Open Sodium Chloride (Saline Flush) 2.5 ml FLUSH ASDIRECTED PRN PRN Reason: Keep Vein Open Temazepam (Restoril) 15 mg PO BEDTIME PRN PRN Reason: Sleep Assessment/Plan Comment:: The patient is a 76-year-old gentleman who has renal cell carcinoma and is currently undergoing chemotherapy. The patient will be placed on treatment dose of Lovenox. This will be at 1 mg/kg every 12 hours. I did discussion with the pharmacist and with regards to interference with the patient's chemotherapy drug Coumadin and Pradaxa a good choices. The patient will likely need to be on this indefinitely. The patient will have a 2-D echocardiogram. The patient will be kept on IV fluids at 50 mL/m. He'll have a regular diet as tolerated. The patient will also have his laboratory testing and monitoring on a daily basis. The patient may be appropriate for discharge in 1-2 days depending upon his symptoms. The patient will also need to have close follow-up with oncology on discharge.
--- NOTE | 2016-12-07 10:30 | CR ---
EXAM DATE: 12/07/16 PATIENT'S AGE: 76 Patient: CASIMIRO NUGENT Facility: [place], [place] Site . Site : 1940 Study: XRay Chest [id number]/12/2017 5:39:32 AM Ordering Physician: Akshat Acosta Final Report: INDICATIONS: Shortness of breath. Chest pain. TECHNIQUE: Chest 1 view. COMPARISON: Chest radiograph August 16, 2016. Chest CT same day. FINDINGS: Intracardiac device appears appropriately positioned. No pneumothorax or pleural effusion. New or worsening irregular nodular opacities in the periphery of the right mid lung. Cardiac and mediastinal contours are stable. No additional significant change. IMPRESSION: New/worsening irregular nodular opacities in the right mid lung concerning for disease progression or possibly pneumonia as discussed on the recent chest CT. Dictated by Marquis Wilson MD @ 12/07/2016 6:04:32 AM Dictated by: Marquis Wilson MD @ 12/07/2016 06:04:51 (Electronic Signature) Report Signed by Proxy. [facility]
--- NOTE | 2016-12-07 10:31 | CT ---
EXAM DATE: 12/07/16 PATIENT'S AGE: 76 Patient: CASIMIRO NUGENT Facility: [place], [place] Site . Site : 1940 Study: CT Chest Angio [id number]/12/2017 5:40:36 AM Ordering Physician: Akshat Acosta Final Report: INDICATION: Difficulty breathing. Chest pain. Elevated D-dimer. TECHNIQUE: CT chest pulmonary angiogram acquired with IV contrast. COMPARISON: None FINDINGS: Cardiovascular structures: There is a small amount of right upper and right lower lobe pulmonary embolus. There is mild motion artifact. No definite additional pulmonary embolus. No saddle embolus or CT evidence of right heart strain. Aortic atherosclerosis and tortuosity. The thoracic aorta is otherwise unremarkable. Mild cardiomegaly and intracardiac device as before. Mediastinum and lebron: No mass or adenopathy. Lungs: No pneumothorax. Central airways are patent. Multiple bilateral irregular subcentimeter nodular and ground-glass opacities have slightly progressed. Mild bilateral scarring and atelectasis. Pleura and pericardium: No effusions. Chest wall and axilla: No mass or adenopathy. Bones: Degenerative changes of the spine. Upper abdomen: Unremarkable as imaged. IMPRESSION: Small amount of right upper and right lower lobe pulmonary embolus. Worsening bilateral subcentimeter nodular and ground-glass opacities concerning for progression of disease/metastasis or possibly infection in the appropriate clinical setting. Discussed with Dr. Oden at the time of dictation. Dictated by Marquis Wilson MD @ 12/07/2016 6:01:03 AM Dictated by: Marquis Wilson MD @ 12/07/2016 06:02:24 (Electronic Signature) Report Signed by Proxy. [facility]
[2016-12-07] MEDS: Enoxaparin 100 MG/1 ML Syringe SUBCUT SCH (17:37)
[2016-12-07] MEDS: oxyCODONE 5 MG Tab PO PRN (20:11)
[2016-12-08] MEDS: oxyCODONE 5 MG Tab PO PRN ×2 (03:23→09:19)
[2016-12-08 05:16] LABS: CHLORIDE,CL 106 mmol/L (98-110); SODIUM,NA 139 mmol/L (136-146)
[2016-12-08] MEDS: Enoxaparin 100 MG/1 ML Syringe SUBCUT SCH (05:24)
--- NOTE | 2016-12-08 08:52 | PCM.PN ---
- General Info Date of Service: 12/08/16 Admission Dx/Problem (Free Text): Admission Diagnosis/Problem Admission Diagnosis/Problem Pulmonary embolism Subjective Update: Subjectively the patient is doing better, less pain and shortness of breath. Functional Status: Reports: Pain Controlled, Tolerating Diet (Eating well) - Review of Systems General: Reports: No Symptoms HEENT: Reports: No Symptoms Pulmonary: Reports: Pleuritic Chest Pain Cardiovascular: Reports: No Symptoms Gastrointestinal: Reports: No Symptoms Genitourinary: Reports: No Symptoms Musculoskeletal: Reports: No Symptoms Skin: Reports: No Symptoms Neurological: Reports: No Symptoms Psychiatric: Reports: No Symptoms - Patient Data Vitals - Most Recent: Last Vital Signs Temp 37.0 C 12/08/16 04:00 Pulse 65 12/08/16 04:00 Resp 18 12/08/16 04:00 BP 131/92 H 12/08/16 04:00 Pulse Ox 96 12/08/16 04:00 Weight - Most Recent: 69.6 kg I&O - Last 24 Hours: Intake & Output 12/07/16 12/08/16 12/08/16 22:59 06:59 14:59 Intake Total 350 350 Output Total 410 450 Balance -60 -100 Lab Results Last 24 Hours: Laboratory Results - last 24 hr 12/08/16 12/08/16 Range/Units 04:30 04:30 WBC 5.58 (4.0-11.0) K/uL RBC 4.33 L (4.50-5.90) M/uL Hgb 13.1 (13.0-17.0) g/dL Hct 38.9 (38.0-50.0) % MCV 89.8 (80.0-98.0) fL MCH 30.3 (27.0-32.0) pg MCHC 33.7 (31.0-37.0) g/dL RDW Std Deviation 63.0 H (28.0-62.0) fl RDW Coeff of Bambi 19 H (11.0-15.0) % Plt Count 140 L (150-400) K/uL MPV 10.70 (7.40-12.00) fL Neut % (Auto) 69.5 (48.0-80.0) % Lymph % (Auto) 14.0 L (16.0-40.0) % [place] % (Auto) 11.8 (0.0-15.0) % Eos % (Auto) 4.3 (0.0-7.0) % Baso % (Auto) 0.4 (0.0-1.5) % Neut # (Auto) 3.9 (1.4-5.7) K/uL Lymph # (Auto) 0.8 (0.6-2.4) K/uL [place] # (Auto) 0.7 (0.0-0.8) K/uL Eos # (Auto) 0.2 (0.0-0.7) K/uL Baso # (Auto) 0.0 (0.0-0.1) K/uL Nucleated RBC % 0.0 /100WBC Nucleated RBCs # 0 K/uL Sodium 139 (136-146) mmol/L Potassium 4.6 (3.5-5.1) mmol/L Chloride 106 (98-110) mmol/L Carbon Dioxide 25 (21-31) mmol/L BUN 21 (6.0-23.0) mg/dL Creatinine 1.0 (0.6-1.5) mg/dL Est Cr Clr Drug Dosing 63.80 mL/min Estimated GFR (MDRD) > 60.0 ml/min Glucose 111 H (60-110) mg/dL Calcium 8.2 L (8.8-10.8) mg/dL Total Bilirubin 0.9 (0.1-1.5) mg/dL AST 25 (5-40) IU/L ALT 39 (8-54) IU/L Alkaline Phosphatase 51 (40-150) Total Protein 5.2 L (6.0-8.0) g/dL Albumin 3.2 L (3.4-4.8) g/dL Globulin 2.0 (2.0-3.5) g/dL Albumin/Globulin Ratio 1.6 (1.3-2.8) Med Orders - Current: Current Medications Acetaminophen (Tylenol) 650 mg PO Q4H PRN PRN Reason: Pain (Mild 1-3)/fever Docusate Sodium (Colace) 100 mg PO BID PRN PRN Reason: Constipation Enoxaparin Sodium (Lovenox) 70 mg SUBCUT Q12H [place] Stop: 12/13/16 06:00 Last Admin: 12/08/16 05:24 Dose: 70 mg Hydromorphone HCl (Dilaudid) 0.5 mg IVPUSH Q2H PRN PRN Reason: Pain (severe 7-10) Last Admin: 12/07/16 15:36 Dose: 0.5 mg Metoprolol Tartrate (Lopressor) 50 mg PO BID [facility] Ondansetron HCl (Zofran Odt) 4 mg PO Q6H PRN PRN Reason: nausea, able to take PO Oxycodone HCl (Oxycodone) 5 mg PO Q4H PRN PRN Reason: Pain (moderate 4-6) Last Admin: 12/08/16 03:23 Dose: 5 mg Pazopanib Hcl [ (Votrient] 200 Mg) 4 each PO DAILY@1700 [facility] Sodium Chloride (Saline Flush) 10 ml FLUSH ASDIRECTED PRN PRN Reason: Keep Vein Open Sodium Chloride (Saline Flush) 2.5 ml FLUSH ASDIRECTED PRN PRN Reason: Keep Vein Open Sodium Chloride (Saline Flush) 10 ml FLUSH ASDIRECTED PRN PRN Reason: Keep Vein Open Sodium Chloride (Saline Flush) 2.5 ml FLUSH ASDIRECTED PRN PRN Reason: Keep Vein Open Temazepam (Restoril) 15 mg PO BEDTIME PRN PRN Reason: Sleep Discontinued Medications Aspirin (Aspirin) 324 mg PO ONETIME ONE Stop: 12/07/16 04:29 Last Admin: 12/07/16 04:39 Dose: 324 mg Enoxaparin Sodium (Lovenox) 60 mg SUBCUT ONETIME ONE Stop: 12/07/16 06:01 Last Admin: 12/07/16 06:13 Dose: 60 mg Sodium Chloride (Normal Saline) 1,000 mls @ 125 mls/hr IV .Bolus ONE Stop: 12/07/16 12:27 Last Admin: 12/07/16 04:39 Dose: 125 mls/hr Iopamidol (Isovue-370 (76%)) 50 ml IVPUSH ONETIME STA Stop: 12/07/16 06:10 Last Admin: 12/07/16 06:10 Dose: 50 ml Metoprolol Succinate (Toprol Xl) 50 mg PO DAILY [facility] Last Admin: 12/07/16 10:19 Dose: 50 mg Morphine Sulfate (Morphine) 2 mg IVPUSH ONETIME ONE Stop: 12/07/16 04:33 Last Admin: 12/07/16 04:39 Dose: 2 mg Nitroglycerin (Nitro-Bid 2%) 1 gm TOP ONETIME ONE Stop: 12/07/16 04:29 Last Admin: 12/07/16 04:40 Dose: 1 gm Ondansetron HCl (Zofran) 4 mg IVPUSH ONETIME ONE Stop: 12/07/16 04:33 Last Admin: 12/07/16 04:39 Dose: 4 mg Pazopanib Hcl [ (Votrient] 200 Mg) 4 each PO DAILY [place] Last Admin: 12/07/16 10:19 Dose: Not Given - Exam Quality Assessment: No: Supplemental Oxygen General: Alert, Oriented, Cooperative, No Acute Distress HEENT: Pupils Equal, Pupils Reactive, EOMI Neck: Supple, Trachea Midline Lungs: Clear to Auscultation, Normal Respiratory Effort Cardiovascular: Regular Rhythm GI/Abdominal Exam: Normal Bowel Sounds, Soft, Non-Tender, No Distention Back Exam: Decreased Range of Motion Extremities: No Pedal Edema Skin: Warm, Dry, Intact Psy/Mental Status: Alert, Normal Affect - Problem List & Annotations (1) Pulmonary embolism SNOMED Code(s): 97800949, 19823813 Code(s): I26.99 - OTHER PULMONARY EMBOLISM WITHOUT ACUTE COR PULMONALE Status: Acute Priority: High Current Visit: Yes Qualifiers: Chronicity: acute Acute cor pulmonale presence: without acute cor pulmonale (2) Pacemaker SNOMED Code(s): 686209375, 130844125 Code(s): Z95.0 - PRESENCE OF CARDIAC PACEMAKER Status: Chronic Priority: High Current Visit: Yes Annotation/Comment:: Abnormal pacemaker pacing (3) Renal cell cancer SNOMED Code(s): 709092363, 412867801 Code(s): C64.9 - MALIGNANT NEOPLASM OF UNSP KIDNEY, EXCEPT RENAL PELVIS Status: Chronic Priority: High Current Visit: Yes Qualifiers: Laterality: right Qualified Code(s): C64.1 - Malignant neoplasm of right kidney, except renal pelvis - Problem List Review Problem List Initiated/Reviewed/Updated: Yes - My Orders Last 24 Hours: My Active Orders 12/07/16 07:48 Patient Status [ADT] Routine Oxygen Therapy [RC] PRN Up With Assistance [RC] ASDIRECTED Vital Signs [RC] Q4H Acetaminophen [Tylenol] 650 mg PO Q4H PRN Docusate Sodium [Colace] 100 mg PO BID PRN HYDROmorphone [Dilaudid] 0.5 mg IVPUSH Q2H PRN Ondansetron [Zofran ODT] 4 mg PO Q6H PRN Sodium Chloride 0.9% [Saline Flush] 10 ml FLUSH ASDIRECTED PRN Sodium Chloride 0.9% [Saline Flush] 2.5 ml FLUSH ASDIRECTED PRN Temazepam [Restoril] 15 mg PO BEDTIME PRN oxyCODONE 5 mg PO Q4H PRN GM Immunization Reflex [OM.PC] Click To Edit Saline Lock Insert [OM.PC] Routine Resuscitation Status Routine 12/07/16 07:49 Cardiac Monitoring [RC] CONTINUOUS 12/07/16 07:51 Vaccines to be Administered [RC] PER UNIT ROUTINE 12/07/16 08:23 Echo Comp wo Cont [US] Routine 12/07/16 08:30 Telemetry Monitoring [Cardiac Monitoring] [RC] Q8H 12/07/16 18:00 Enoxaparin [Lovenox] 70 mg SUBCUT Q12H 12/07/16 Lunch Regular Diet [DIET] 12/08/16 09:00 Metoprolol Tartrate [Lopressor] 50 mg PO BID 12/08/16 17:00 Patient's Own Medication [Ptom] 4 each PO DAILY@1700 - Plan Plan:: The patient is a 76-year-old gentleman is doing very well with his anticoagulation with Lovenox currently. The patient is doing subjectively okay however, his pacemaker has been showing some abnormalities. I will discuss this with system configuration specialist and refer the patient to him. The patient had been given a choice for anticoagulation between the use of Coumadin and Pradaxa and I've explained risk and benefits of both of these. The patient would like to be on Pradaxa for his anticoagulation. The patient also has worsening of a nodule that had been found on the CT scan and the nodule itself is suspicious. I've recommended that the patient follow-up with oncology very closely. For now the patient will be kept on his fluids as tolerated treatment dose of Lovenox and he will likely be transitioned to Pradaxa the following day on discharge. If cardiology has no further inputs with regards to the apparent pacemaker issue the patient can be considered for discharge home today.
[2016-12-08] MEDS ORDERED: Metoprolol Tartrate 50 MG Tab PO SCH (09:00)
--- NOTE | 2016-12-08 12:30 | PCM.DCSUM1 ---
Discharge Summary - Hospital Course Free Text/Narrative:: Patient was admitted secondary to pulmonary emboli Brief History: History of renal cell cancer under chemotherapy - Discharge Data Discharge Date: 12/08/16 Discharge Disposition: Home, Self-Care 01 Condition: Fair - Discharge Diagnosis/Problem(s) (1) Pulmonary embolism SNOMED Code(s): 05082569, 08271708 ICD Code: I26.99 - OTHER PULMONARY EMBOLISM WITHOUT ACUTE COR PULMONALE Status: Acute Priority: High Qualifiers: Chronicity: acute Acute cor pulmonale presence: without acute cor pulmonale (2) Pacemaker SNOMED Code(s): 443092402, 332284096 ICD Code: Z95.0 - PRESENCE OF CARDIAC PACEMAKER Status: Chronic Priority : High Problem Details: Abnormal pacemaker pacing, resolved noted to be artifact (3) Renal cell cancer SNOMED Code(s): 347491999, 274053210 ICD Code: C64.9 - MALIGNANT NEOPLASM OF UNSP KIDNEY, EXCEPT RENAL PELVIS Status: Chronic Priority: High Qualifiers: Laterality: right Qualified Code(s): C64.1 - Malignant neoplasm of right kidney, except renal pelvis - Patient Summary/Data Hospital Course: The patient is a 76-year-old gentleman is doing very well with his anticoagulation with Lovenox currently. The patient is doing subjectively okay however, his pacemaker has been showing some abnormalities. I will discuss this with ethylene plant helper and refer the patient to him. The patient had been given a choice for anticoagulation between the use of Coumadin and Pradaxa and I've explained risk and benefits of both of these. The patient would like to be on Pradaxa for his anticoagulation. The patient also has worsening of a nodule that had been found on the CT scan and the nodule itself is suspicious. I've recommended that the patient follow-up with oncology very closely. For now the patient will be kept on his fluids as tolerated treatment dose of Lovenox and he will likely be transitioned to Pradaxa the following day on discharge. If cardiology has no further inputs with regards to the apparent pacemaker issue the patient can be considered for discharge home today. The patient has been given a prescription for Pradaxa and he is to take 150 mg by mouth twice a day. I have advised him of the problems they can be associated with Pradaxa and Coumadin as well as the advantages of each. The patient has been recommended to follow-up with his oncologist as soon as possible. The patient will be discharged with recommendation to start Pradaxa tomorrow, continue on cardiac diet is tolerated, continue with activity as tolerated. The patient is also to follow-up with his primary care physician. The patient is hemodynamically stable and he'll be discharged with the above recommendations. - Discharge Plan Prescriptions/Med Rec: Dabigatran Etexilate Mesylate [Pradaxa] 150 mg PO BID #60 capsule oxyCODONE 5 mg PO Q4H PRN #14 tablet PRN Reason: Pain Home Medications: Home Meds Metoprolol Succinate [Toprol XL] 50 mg PO DAILY 08/16/16 [History] Pazopanib HCl [Votrient] 800 mg PO DAILY 12/07/16 [History] Dabigatran Etexilate Mesylate [Pradaxa] 150 mg PO BID #60 capsule 12/08/16 [Rx] oxyCODONE 5 mg PO Q4H PRN #14 tablet 12/08/16 [Rx] Patient Handouts: Oxycodone tablets or capsules, Dabigatran oral capsules, Pulmonary Embolism Referrals: [facility] [Outside] Booker Xei MD [Primary Care Provider] - 12/15/16 10:30 am - Discharge Summary/Plan Comment DC Time >30 min.: Yes - Patient Data Vitals - Most Recent: Last Vital Signs Temp 36.3 C 12/08/16 08:00 Pulse 84 12/08/16 09:10 Resp 22 H 12/08/16 08:00 BP 167/82 H 12/08/16 09:10 Pulse Ox 94 L 12/08/16 08:00 Weight - Most Recent: 69.6 kg I&O - Last 24 hours: Intake & Output 12/07/16 12/08/16 12/08/16 22:59 06:59 14:59 Intake Total 350 350 Output Total 410 450 Balance -60 -100 Lab Results - Last 24 hrs: Laboratory Results - last 24 hr 12/08/16 12/08/16 Range/Units 04:30 04:30 WBC 5.58 (4.0-11.0) K/uL RBC 4.33 L (4.50-5.90) M/uL Hgb 13.1 (13.0-17.0) g/dL Hct 38.9 (38.0-50.0) % MCV 89.8 (80.0-98.0) fL MCH 30.3 (27.0-32.0) pg MCHC 33.7 (31.0-37.0) g/dL RDW Std Deviation 63.0 H (28.0-62.0) fl RDW Coeff of Bambi 19 H (11.0-15.0) % Plt Count 140 L (150-400) K/uL MPV 10.70 (7.40-12.00) fL Neut % (Auto) 69.5 (48.0-80.0) % Lymph % (Auto) 14.0 L (16.0-40.0) % [place] % (Auto) 11.8 (0.0-15.0) % Eos % (Auto) 4.3 (0.0-7.0) % Baso % (Auto) 0.4 (0.0-1.5) % Neut # (Auto) 3.9 (1.4-5.7) K/uL Lymph # (Auto) 0.8 (0.6-2.4) K/uL [place] # (Auto) 0.7 (0.0-0.8) K/uL Eos # (Auto) 0.2 (0.0-0.7) K/uL Baso # (Auto) 0.0 (0.0-0.1) K/uL Nucleated RBC % 0.0 /100WBC Nucleated RBCs # 0 K/uL Sodium 139 (136-146) mmol/L Potassium 4.6 (3.5-5.1) mmol/L Chloride 106 (98-110) mmol/L Carbon Dioxide 25 (21-31) mmol/L BUN 21 (6.0-23.0) mg/dL Creatinine 1.0 (0.6-1.5) mg/dL Est Cr Clr Drug Dosing 63.80 mL/min Estimated GFR (MDRD) > 60.0 ml/min Glucose 111 H (60-110) mg/dL Calcium 8.2 L (8.8-10.8) mg/dL Total Bilirubin 0.9 (0.1-1.5) mg/dL AST 25 (5-40) IU/L ALT 39 (8-54) IU/L Alkaline Phosphatase 51 (40-150) Total Protein 5.2 L (6.0-8.0) g/dL Albumin 3.2 L (3.4-4.8) g/dL Globulin 2.0 (2.0-3.5) g/dL Albumin/Globulin Ratio 1.6 (1.3-2.8) Med Orders - Current: Current Medications Acetaminophen (Tylenol) 650 mg PO Q4H PRN PRN Reason: Pain (Mild 1-3)/fever Dabigatran (Pradaxa) 150 mg PO BID [facility] Docusate Sodium (Colace) 100 mg PO BID PRN PRN Reason: Constipation Enoxaparin Sodium (Lovenox) 70 mg SUBCUT Q12H [facility] Stop: 12/13/16 06:00 Last Admin: 12/08/16 05:24 Dose: 70 mg Hydromorphone HCl (Dilaudid) 0.5 mg IVPUSH Q2H PRN PRN Reason: Pain (severe 7-10) Last Admin: 12/07/16 15:36 Dose: 0.5 mg Metoprolol Tartrate (Lopressor) 50 mg PO BID [facility] Last Admin: 12/08/16 09:10 Dose: 50 mg Ondansetron HCl (Zofran Odt) 4 mg PO Q6H PRN PRN Reason: nausea, able to take PO Oxycodone HCl (Oxycodone) 5 mg PO Q4H PRN PRN Reason: Pain (moderate 4-6) Last Admin: 12/08/16 09:19 Dose: 5 mg Pazopanib Hcl [ (Votrient] 200 Mg) 4 each PO DAILY@1700 [facility] Sodium Chloride (Saline Flush) 10 ml FLUSH ASDIRECTED PRN PRN Reason: Keep Vein Open Sodium Chloride (Saline Flush) 2.5 ml FLUSH ASDIRECTED PRN PRN Reason: Keep Vein Open Sodium Chloride (Saline Flush) 10 ml FLUSH ASDIRECTED PRN PRN Reason: Keep Vein Open Sodium Chloride (Saline Flush) 2.5 ml FLUSH ASDIRECTED PRN PRN Reason: Keep Vein Open Temazepam (Restoril) 15 mg PO BEDTIME PRN PRN Reason: Sleep Discontinued Medications Aspirin (Aspirin) 324 mg PO ONETIME ONE Stop: 12/07/16 04:29 Last Admin: 12/07/16 04:39 Dose: 324 mg Dabigatran (Pradaxa) 150 mg PO BID [facility] Enoxaparin Sodium (Lovenox) 60 mg SUBCUT ONETIME ONE Stop: 12/07/16 06:01 Last Admin: 12/07/16 06:13 Dose: 60 mg Sodium Chloride (Normal Saline) 1,000 mls @ 125 mls/hr IV .Bolus ONE Stop: 12/07/16 12:27 Last Admin: 12/07/16 04:39 Dose: 125 mls/hr Iopamidol (Isovue-370 (76%)) 50 ml IVPUSH ONETIME STA Stop: 12/07/16 06:10 Last Admin: 12/07/16 06:10 Dose: 50 ml Metoprolol Succinate (Toprol Xl) 50 mg PO DAILY [facility] Last Admin: 12/07/16 10:19 Dose: 50 mg Morphine Sulfate (Morphine) 2 mg IVPUSH ONETIME ONE Stop: 12/07/16 04:33 Last Admin: 12/07/16 04:39 Dose: 2 mg Nitroglycerin (Nitro-Bid 2%) 1 gm TOP ONETIME ONE Stop: 12/07/16 04:29 Last Admin: 12/07/16 04:40 Dose: 1 gm Ondansetron HCl (Zofran) 4 mg IVPUSH ONETIME ONE Stop: 12/07/16 04:33 Last Admin: 12/07/16 04:39 Dose: 4 mg Pazopanib Hcl [ (Votrient] 200 Mg) 4 each PO DAILY [facility] Last Admin: 12/07/16 10:19 Dose: Not Given *Q Meaningful Use (DIS) - VTE *Q VTE Criteria *Q: - Stroke *Q Stroke Criteria *Q: - AMI *Q AMI Criteria *Q:
[2016-12-08 12:41] VITALS: BP 163/86
[2016-12-08] MEDS ORDERED: PAZOPANIB HCL 200 MG PO SCH (17:00)
--- NOTE | 2016-12-08 17:55 | PCM.PRNOTE ---
- Free Text/Narrative Note: Device interrogation 12/08/2016 [employer] Model advantio [id number] Mode DDDR LRL 60bpm % paced intrinsic rhythm pacer dependent Battery life 5.5 years Atrial lead sensin.5 mV capture threshold: 0.8 mV @ 0.4 ms impedance: 517 ohms Ventricular lead sensing: paced capture threshold: 0.5mV @ 0.4 ms impedance: 464 ohms episodes no recent episodes MS: 0 Imp: normally functioning dual chamber pacemaker plan f/u device check in 6 months
--- NOTE | 2016-12-09 10:21 | CONS ---
DATE OF CONSULTATION: 12/08/2016 DATE OF : 1940 PRIMARY CARE PHYSICIAN: Booker Xie MD REASON FOR CONSULTATION: Pacemaker evaluation. HISTORY OF PRESENT ILLNESS: This is a 76-year-old gentleman with history of pacemaker placement in 2014. Past medical history of hypertension and high cholesterol, who presented to the hospital with left-sided chest pain with shortness of breath. He underwent a CT scan that shows small multiple PEs. He also had a history of renal cell carcinoma, undergoing chemotherapy. I saw him because they saw the pacer spike; this seemed to be malfunctioning on the telemetry, and so I did check his pacemaker. The pacemaker interrogation seemed to be showing a normal functioning pacemaker. However, patient did not know the exact reason why he has a pacemaker and the only thing that he was told that he has an irregular heartbeat, and the only home medications include metoprolol 50 mg once a day and Votrient 800 mg once a day for his cancer. REVIEW OF SYSTEMS: Except chest pain, otherwise has been negative for 12-point review of systems. PAST MEDICAL HISTORY: Including: Status post pacemaker, hypertension, and hypercholesterolemia. FAMILY HISTORY: No family history of a heart attack. SOCIAL HISTORY: He denies smoking, drug use, or alcohol use. ALLERGIES: No known drug allergies. PHYSICAL EXAMINATION: VITAL SIGNS: The blood pressure is quite elevated at 170/96, currently is 163/86, heart rate of 84, temperature is 36.2, O2 saturation is 93 L on room air, and respiration rate is 22. HEENT: No pallor. No jaundice. No JVD. HEART: Normal S1 and S2. No murmur. LUNGS: Clear. ABDOMEN: Soft, nontender. Bowel sounds are present. No hepatosplenomegaly. EXTREMITIES: Legs; no edema. LABORATORY DATA AND IMAGING STUDIES: Investigations: CT scan of the chest angiogram shows small PE. Laboratory: CBC showed WBCs of 5.0, hematocrit 38.0, and platelets are 140,000. INR of 1.03. D-dimer is positive at 1.3. Sodium 139, potassium 4.0, chloride 103, bicarbonate 25, BUN 21, and creatinine is 1. Troponin was negative. EKG on December 07 at 4:00 a.m. did show pacemaker, V-paced, atrial-sensed. ASSESSMENT AND PLAN: This is a 76-year-old male, status post pacemaker, who presented to the hospital with chest pain, found to have a pulmonary embolism. From the pacemaker interrogation, this seemed to be functioning normally. From my standpoint, the patient can be discharged to home. DILLON WOODSON /[id number]
--- NOTE | 2016-12-09 16:40 | ECHO ---
EXAM DATE: 12/07/16 PATIENT'S AGE: 76 The echocardiogram report can be seen in this patient's EMR (Electronic Medical Record) in the Reports section. The report has also been scanned into PACS. PARDEEP
== END 2016-12-08 13:45 | disposition home or self-care (01) ==
LOC: MW.ED 04:20 → MW.MS 06:12 → INTOOBSV 06:12
PROVIDERS: ADMIT Internal Medicine; ATTEND Internal Medicine
DX: I26.99 Other pulmonary embolism without acute cor pulmonale (principal); C64.1 Malignant neoplasm of right kidney, except renal pelvis; I10 Essential (primary) hypertension; E78.00 Pure hypercholesterolemia, unspecified; Z95.0 Presence of cardiac pacemaker; Z98.890 Other specified postprocedural states; Z79.899 Other long term (current) drug therapy
CPT/HCPCS: 36415; 71010; 71275; 80053; 82553; 84484; 85025; 85379; 85610; 93005; 93306; 96361; 96372; 96374; 96375; 99285; A9270; J1170; J1650; J2270; J2405; J7040; Q9967; 99283; G0378

== ENCOUNTER 2017-01-03 06:46 | Day surgery (SDC) | payer MEDICARE, OTHER ==
[~2017-01-03 06:46] MED LIST: Lactated Ringers 1,000 ML IV SCH
[2017-01-03] MEDS ORDERED: Midazolam 1 MG/ML 2 ML SDV ONE (07:06)
[2017-01-03] MEDS ORDERED: fentaNYL 100 MCG/2 ML SDV ONE (07:07)
[2017-01-03] MEDS ORDERED: Propofol 200 MG/20 ML SDV ONE ×2 (07:09→08:23)
--- NOTE | 2017-01-03 07:10 | PCM.PREANE ---
Preanesthetic Assessment - Anesthesia/Transfusion/Family Hx Anesthesia History: Prior Anesthesia Without Reaction Family History of Anesthesia Reaction: No Transfusion History: No Prior Transfusion(s) Intubation History: Unknown - Review of Systems General: No Symptoms Pulmonary: No Symptoms Cardiovascular: No Symptoms Gastrointestinal: No Symptoms Neurological: No Symptoms Other: Reports: None - Physical Assessment Height: 1.75 m Weight: 71.214 kg ASA Class: 3 Mental Status: Alert & Oriented x3 Airway Class: Mallampati = 2 Dentition: Reports: Normal Dentition Thyro-Mental Finger Breadths: 3 Mouth Opening Finger Breadths: 3 ROM/Head Extension: Limited/Partial Lungs: Clear to Auscultation, Normal Respiratory Effort, Decreased Breath Sounds Cardiovascular: Regular Rate, Regular Rhythm - Allergies Allergies/Adverse Reactions: Allergies Allergy/AdvReac Type Severity Reaction Status Date / Time No Known Allergies Allergy Verified 12/30/16 11:49 - Blood Blood Available: No - Anesthesia Plan Pre-Op Medication Ordered: None - Acknowledgements Anesthesia Type Planned: MAC (general anesthesia back-up) Pt an Appropriate Candidate for the Planned Anesthesia: Yes Alternatives and Risks of Anesthesia Discussed w Pt/Guardian: Yes Pt/Guardian Understands and Agrees with Anesthesia Plan: Yes PreAnesthesia Questionnaire HEENT History: Reports: Impaired Vision Other HEENT History: uses reading glasses Cardiovascular History: Reports: Blood Clots/VTE/DVT (PE 12/06/16), High Cholesterol, Hypertension, Pacemaker Respiratory History: Reports: None Gastrointestinal History: Reports: Diverticulosis Genitourinary History: Reports: None Other Genitourinary History: 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 , in need of port for chemo Musculoskeletal History: Reports: Other (See Below) Other Musculoskeletal History: hip pain Neurological History: Reports: Other (See Below) Other Neuro History: hx of motion sickness Psychiatric History: Reports: None Endocrine/Metabolic History: Reports: None Hematologic History: Reports: None Immunologic History: Reports: None Oncologic (Cancer) History: Reports: Renal Other Oncologic History: current Dermatologic History: Reports: None - Infectious Disease History Infectious Disease History: Reports: Measles, Mumps - Past Surgical History Head Surgeries/Procedures: Reports: None HEENT Surgical History: Reports: None Other Cardiovascular Surgeries/Procedures: pacemaker placement 14 - SUBSTANCE USE Smoking Status *Q: Never Smoker Second Hand Smoke Exposure: No Days Per Week of Alcohol Use: 0 Recreational Drug Use History: No - HOME MEDS Home Medications: Home Meds Metoprolol Succinate [Toprol XL] 50 mg PO BID 08/16/16 [History] Dabigatran Etexilate Mesylate [Pradaxa] 150 mg PO BID #60 capsule 12/08/16 [Rx] - CURRENT (IN HOUSE) MEDS Current Meds: Current Medications Lactated Ringer's (Ringers, Lactated) 1,000 mls @ 125 mls/hr IV ASDIRECTED [place]
[2017-01-03] MEDS ORDERED: Bupivacaine 0.5% 10 ML SDV ONE (07:29)
[2017-01-03] MEDS ORDERED: Heparin Sodium 100 Units/ML 3 ML Syringe ONE (07:29)
[2017-01-03] MEDS ORDERED: Lidocaine 1% 20 ML MDV ONE (07:30)
[2017-01-03] MEDS ORDERED: ceFAZolin 2 GM in Premix Bag 1 BAG IV ONE (08:52)
[2017-01-03] MEDS ORDERED: Acetaminophen/HYDROcodone 325-5 MG Tab PO PRN (09:21)
--- NOTE | 2017-01-03 09:28 | PCM.OPNOTE ---
- General Post-Op/Procedure Note Date of Surgery/Procedure: 01/03/17 Operative Procedure(s): Placement of Bard PowerPort Pre Op Diagnosis: Metastatic renal cell carcinoma Post-Op Diagnosis: Same Anesthesia Technique: Local, MAC (ASA III) Primary Surgeon: Kishore Prieto Fluid Replacement, Intraop: 500 EBL in mLs: 5 Condition: Good Free Text/Narrative:: Dictation [id number]
[2017-01-03] MEDS ORDERED: Lactated Ringers 1,000 ML IV SCH (09:30)
--- NOTE | 2017-01-03 09:47 | CR ---
EXAMINATION: Portable chest radiograph. HISTORY: Port placement. Comparison: 12/07/2016. FINDINGS: The trachea is midline. The cardiomediastinal silhouette is within normal limits. No pulmonary infilt rates, effusions or pneumothorax. There is a right-sided portacatheter with tip in the SVC. There is a left-sided pacemaker. Interstitial prominence again noted most prominent within the apices and righ t midlung. Osseous structures appear unremarkable. IMPRESSION: Right-sided portacatheter noted with tip in good position without evidence of a pneumothorax.
[2017-01-03] MEDS ORDERED: Ondansetron 4 MG/2 ML SDV IVPUSH PRN (09:51)
[2017-01-03] MEDS: Morphine 10 MG/ML Syringe IVPUSH PRN ×2 (10:10→11:00)
--- NOTE | 2017-01-03 13:59 | OR ---
SURGEON: Kishore Prieto M.D. DATE OF PROCEDURE: 01/03/2017 OPERATION PERFORMED: Placement of Bard PowerPort catheter for upcoming chemotherapy. ANESTHESIA: Local MAC. ASA CLASSIFICATION: III. PREOPERATIVE DIAGNOSIS: Metastatic renal cell carcinoma, need for long-term IV access port. POSTOPERATIVE DIAGNOSIS: Metastatic renal cell carcinoma, need for long-term IV access port. ESTIMATED BLOOD LOSS: 5 mL. INTRAOPERATIVE FLUID REPLACEMENT: 500 mL of crystalloid. DESCRIPTION OF PROCEDURE: The patient was taken to the operating room and placed on the fluoroscopy table in the supine position. Time-out was called for appropriate identification of the patient and procedure. Monitored anesthesia care was provided. The right chest was prepped and draped sterilely. The right deltopectoral groove was marked out and the skin infiltrated with 1% Xylocaine and 0.5% Marcaine solution. The skin incision was made and deepened through the subcutaneous tissue, obtaining hemostasis with the use of electrocautery. The cephalic vein was identified and was of excellent quality. The vein was anesthetized with 1 mL of 1% Xylocaine. The vein was circumferentially dissected and ligated distally and encircled proximally with 2-0 Vicryl ties. A small venotomy was made and the heparin-flushed catheter placed through the venotomy and advanced from the cephalic vein into the subclavian vein, positioning it in the superior vena cava. This was confirmed with fluoroscopy. The stay sutures of 2-0 Vicryl were tied. Care was taken during this time to see that the catheter always remained a closed system, as it had been flushed with heparinized saline. Once that was accomplished and position confirmed, the site on the chest wall was chosen for the port. This was approximately 8 to 10 cm below the right deltopectoral incision. Again, the skin was infiltrated with 0.5% Marcaine solution and 1% Xylocaine. The skin incision was made and deepened through the skin into the subcutaneous space. Care was taken to keep this in the subcutaneous space. The tunneling device was used to connect the two incisions, and again with care taken to prevent an air embolus, the catheter was assembled to the port and positioned in a subcutaneous tunnel. With that accomplished, the catheter was cut to appropriate length, and again avoiding an air embolus, the catheter and port were connected with the connector securing it. The catheter was then flushed without difficulty. There was good return of blood, and the heparinized saline flows easily. The port was then secured to the subcutaneous tissue with multiple interrupted 2-0 silk sutures. The wounds were inspected for hemostasis and small bleeding sites were electrocoagulated. Both incisions were closed in 2 layers approximating the subcutaneous tissue with 3-0 Vicryl and the skin with subcuticular 4-0 Monocryl. Both incisions were Steri- Stripped and dressed with sterile Tegaderm pads. Sponge, needle, and instrument counts were all correct. The patient tolerated the procedure well and was taken to recovery room in stable condition. Chest x-ray will be obtained. FIDLE / KANDICE /[id number]
[2017-01-03 15:24] VITALS: BP 150/76
== END 2017-01-03 12:00 | disposition home or self-care (01) ==
LOC: MW.SDS 06:46
PROVIDERS: ATTEND Surgery
DX: C64.9 Malignant neoplasm of unspecified kidney, except renal pelvis (principal); C78.00 Secondary malignant neoplasm of unspecified lung; C79.51 Secondary malignant neoplasm of bone; I26.99 Other pulmonary embolism without acute cor pulmonale; E78.5 Hyperlipidemia, unspecified; I10 Essential (primary) hypertension; Z79.01 Long term (current) use of anticoagulants; Z79.899 Other long term (current) drug therapy; Z95.0 Presence of cardiac pacemaker
CPT/HCPCS: 36561; 71010; 76000; A9270; C1788; J0690; J1642; J2250; J2270; J2405; J3010; J7120; 00532; J2704

== ENCOUNTER 2017-01-08 03:43 | Emergency (ER) | payer MEDICARE, OTHER ==
[2017-01-08] MEDS ORDERED: Ketorolac 30 MG/ML SDV IVPUSH ONE (04:05)
[2017-01-08] MEDS ORDERED: Sodium Chloride 0.9% 1,000 ML IV ONE (04:05)
[2017-01-08] MEDS ORDERED: Sodium Chloride 0.9% 10 ML Syringe FLUSH PRN (04:05)
[2017-01-08] MEDS ORDERED: Sodium Chloride 0.9% 2.5 ML Syringe FLUSH PRN (04:05)
--- NOTE | 2017-01-08 04:11 | EDM.PDOC ---
ED HPI GENERAL MEDICAL PROBLEM - General Chief Complaint: Abdominal Pain Stated Complaint: LOWER ABDOMINAL PAIN Time Seen by Provider: 01/08/17 03:53 - History of Present Illness INITIAL COMMENTS - FREE TEXT/NARRATIVE: HISTORY AND PHYSICAL: History of present illness: The patient is a 76-year-old male who follows in our clinic and has a history of pacemaker placement hypertension hypercholesterolemia diverticulitis pulmonary embolus diagnosed in November of this year, metastatic renal cancer and recent port placement who presents with complaints of mid abdominal pain that started approximately 8 PM last evening, 8 hours ago. Patient has been eating and drinking normally and has been more constipated recently due to pain medication he is taking for his hip, the believes that it is oxycodone, and presents with mid- pain near his umbilicus that started gradually. There was no associated fever or radiation of the pain there was no nausea or vomiting. The patient has been urinating normally and has not had any black or bloody stools. He says that lately he has not had much of an appetite but he has been taking much by mouth. The patient has been on oral chemotherapy since his diagnosis 2-3 months ago and previously went off oral chemotherapy about 3 weeks ago and had his first IV chemotherapy just recently. He is scheduled for another treatment this coming week. Patient said he had some nausea and vomiting last week and went to the cancer center and got some IV medications and fluids and was much improved. This pain he has this evening he describes as a deep pain which is located mid abdomen but doesn't seem to radiate. He did not take anything specifically for the pain. The patient had port placement just recently and says he's been doing well from that standpoint. The patient does take anticoagulation therapy, Eliquis, for his PE recently patient denies chest pain cough runny nose or sore throat and has no extremity complaints back pain or neck pain. The patient states that this pain is very different than his diverticulitis or when he had issues with his kidney. When I asked the patient about his cancer and wear it may have spread he said that they don't tell him all the information he is not exactly sure. I thought it was metastatic as I read this on one of his prior notes. He has never had surgery on his kidney nor has he had radiation therapy. Review of systems: As per history of present illness and below otherwise all systems reviewed and negative. Past medical history: As per history of present illness and as reviewed below otherwise noncontributory. Surgical history: As per history of present illness and as reviewed below otherwise noncontributory. Social history: No reported history of drug or alcohol abuse. Family history: As per history of present illness and as reviewed below otherwise noncontributory. Physical exam: Gen.: Well-developed well-nourished man who is nontoxic and speaking clearly and easily in the ED. Vital signs have been reviewed by me. HEENT: Atraumatic, normocephalic, pupils reactive, negative for conjunctival pallor or scleral icterus, mucous membranes tacky, throat clear, neck supple, nontender, trachea midline. Lungs: Clear to auscultation, breath sounds equal bilaterally, chest nontender. At the right upper chest wall port is seen with some resolving ecchymosis but no erythema drainage or swelling or tenderness. Heart: S1S2, regular rate and rhythm no overt murmurs Abdomen: Soft, nondistended, mild tenderness on deep palpation in the periumbilical and lower abdominal areas bilaterally without rebound or guarding. Bowel sounds are hypoactive and there is no tympany on percussion. Negative for masses or hepatosplenomegaly. Negative for costovertebral tenderness. Pelvis: Stable nontender. Genitourinary: Deferred. Rectal: Deferred. Extremities: Atraumatic, negative for cords or calf pain. Neurovascular unremarkable. Neuro: Awake, alert, oriented. Cranial nerves II through XII unremarkable. Cerebellum unremarkable. Motor and sensory unremarkable throughout. Exam nonfocal. Diagnostics: CBC CMP amylase lipase lactic acid UA CT of the abdomen and pelvis Therapeutics: IV fluids Toradol I reviewed all testing results with the patient and at bedside including all the findings of the CT scan. There are aware that some of the findings are unchanged in some of the findings have progressed with respect to his cancer with there is no new event that will require admission. They are aware that his pain is likely due to his fecal loading and constipation. He took a dose of MiraLAX last night but he has not been taking a stool softener with this pain pills. He is on narcotics for his hip pain secondary to the metastatic lesion there. I advised them to start a stool softener daily and to take MiraLAX for the next few days more aggressively to help open things up. I also stressed the need for follow-up with primary care Impression: Abdominal pain/constipation with history of metastatic renal cell carcinoma with CT evidence of progression Definitive disposition and diagnosis as appropriate pending reevaluation and review of above. abdominal area Pain Score (Numeric/FACES): 8 - Related Data Allergies Allergy/AdvReac Type Severity Reaction Status Date / Time No Known Allergies Allergy Verified 01/08/17 03:54 Home Meds: Home Meds Metoprolol Succinate [Toprol XL] 50 mg PO BID 08/16/16 [History] Apixaban [Eliquis] 1 tab PO BID 01/08/17 [History] Metoclopramide [Reglan] 10 mg PO ASDIRECTED 01/08/17 [History] Nivolumab [Opdivo] 40 mg IV ASDIRECTED 01/08/17 [History] oxyCODONE [oxyCODONE] 1 tab PO Q6HRRT 01/08/17 [History] Past Medical History HEENT History: Reports: Impaired Vision Other HEENT History: uses reading glasses Cardiovascular History: Reports: Blood Clots/VTE/DVT (PE 12/06/16), High Cholesterol, Hypertension, Pacemaker Respiratory History: Reports: None Gastrointestinal History: Reports: Diverticulosis Genitourinary History: Reports: None Other Genitourinary History: 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 , in need of port for chemo Musculoskeletal History: Reports: Other (See Below) Other Musculoskeletal History: hip pain Neurological History: Reports: Other (See Below) Other Neuro History: hx of motion sickness Psychiatric History: Reports: None Endocrine/Metabolic History: Reports: None Hematologic History: Reports: None Immunologic History: Reports: None Oncologic (Cancer) History: Reports: Renal Other Oncologic History: current Dermatologic History: Reports: None - Infectious Disease History Infectious Disease History: Reports: Measles, Mumps - Past Surgical History Head Surgeries/Procedures: Reports: None HEENT Surgical History: Reports: None Other Cardiovascular Surgeries/Procedures: pacemaker placement Social & Family History - Family History Family Medical History: Noncontributory - Tobacco Use Smoking Status *Q: Never Smoker Second Hand Smoke Exposure: No - Caffeine Use Caffeine Use: Reports: Tea, Other Other Caffeine Use: gatorade - Alcohol Use Days Per Week of Alcohol Use: 0 - Recreational Drug Use Recreational Drug Use: No Drug Use in Last 12 Months: No ED ROS GENERAL - Review of Systems Review Of Systems: ROS reveals no pertinent complaints other than HPI. ED EXAM, GENERAL - Physical Exam Exam: See Below (See dictation) Course - Vital Signs Last Recorded V/S: Last Vital Signs Temp 36.1 C 01/08/17 03:58 Pulse 52 L 01/08/17 04:32 Resp 17 01/08/17 04:32 BP 141/72 H 01/08/17 04:32 Pulse Ox 95 01/08/17 04:32 - Orders/Labs/Meds Orders: Active Orders 24 hr Category Date Time Status Abdomen Pelvis w Cont [CT] Stat Exams 01/08/17 04:05 Taken Sodium Chloride 0.9% [Saline Flush] Med 01/08/17 04:05 Active 10 ml FLUSH ASDIRECTED PRN Sodium Chloride 0.9% [Saline Flush] Med 01/08/17 04:05 Active 2.5 ml FLUSH ASDIRECTED PRN Saline Lock Insert [OM.PC] Stat Oth 01/08/17 04:05 Ordered Medication Orders Sodium Chloride (Saline Flush) 10 ml FLUSH ASDIRECTED PRN PRN Reason: Keep Vein Open Last Admin: 01/08/17 04:24 Dose: 10 ml Sodium Chloride (Saline Flush) 2.5 ml FLUSH ASDIRECTED PRN PRN Reason: Keep Vein Open Last Admin: 01/08/17 04:29 Dose: 2.5 ml Labs: Laboratory Tests 01/08/17 01/08/17 01/08/17 Range/Units 04:14 04:23 04:23 WBC 8.30 (4.0-11.0) K/uL RBC 3.72 L (4.50-5.90) M/uL Hgb 11.3 L (13.0-17.0) g/dL Hct 34.6 L (38.0-50.0) % MCV 93.0 (80.0-98.0) fL MCH 30.4 (27.0-32.0) pg MCHC 32.7 (31.0-37.0) g/dL RDW Std Deviation 54.1 (28.0-62.0) fl RDW Coeff of Bambi 16 H (11.0-15.0) % Plt Count 291 (150-400) K/uL MPV 9.50 (7.40-12.00) fL Neut % (Auto) 79.5 (48.0-80.0) % Lymph % (Auto) 11.2 L (16.0-40.0) % [place] % (Auto) 7.2 (0.0-15.0) % Eos % (Auto) 1.9 (0.0-7.0) % Baso % (Auto) 0.2 (0.0-1.5) % Neut # (Auto) 6.6 H (1.4-5.7) K/uL Lymph # (Auto) 0.9 (0.6-2.4) K/uL [place] # (Auto) 0.6 (0.0-0.8) K/uL Eos # (Auto) 0.2 (0.0-0.7) K/uL Baso # (Auto) 0.0 (0.0-0.1) K/uL Nucleated RBC % 0.0 /100WBC Nucleated RBCs # 0 K/uL Lactate 1.0 (0.20-2.00) mmol/L Sodium (136-146) mmol/L Potassium (3.5-5.1) mmol/L Chloride (98-110) mmol/L Carbon Dioxide (21-31) mmol/L BUN (6.0-23.0) mg/dL Creatinine (0.6-1.5) mg/dL Est Cr Clr Drug Dosing mL/min Estimated GFR (MDRD) ml/min Glucose (60-110) mg/dL Calcium (8.8-10.8) mg/dL Total Bilirubin (0.1-1.5) mg/dL AST (5-40) IU/L ALT (8-54) IU/L Alkaline Phosphatase (40-150) Total Protein (6.0-8.0) g/dL Albumin (3.4-4.8) g/dL Globulin (2.0-3.5) g/dL Albumin/Globulin Ratio (1.3-2.8) Amylase (10-90) U/L Lipase (7-80) U/L Urine Color YELLOW Urine Appearance CLEAR Urine pH 6.0 (5.0-8.0) Ur Specific [place] 1.015 (1.001-1.035) Urine Protein NEGATIVE (NEGATIVE) mg/dL Urine Glucose (UA) NEGATIVE (NEGATIVE) mg/dL Urine Ketones NEGATIVE (NEGATIVE) mg/dL Urine Occult Blood LARGE H (NEGATIVE) Urine Nitrite NEGATIVE (NEGATIVE) Urine Bilirubin NEGATIVE (NEGATIVE) Urine Urobilinogen 0.2 (<2.0) EU/dL Ur Leukocyte Esterase NEGATIVE (NEGATIVE) Urine RBC 6-12 (0-2/HPF) Urine WBC 0-2 (0-5/HPF) Ur Epithelial Cells NOT SEEN (NONE-FEW) Urine Bacteria FEW (NEGATIVE) 01/08/17 Range/Units 04:23 WBC (4.0-11.0) K/uL RBC (4.50-5.90) M/uL Hgb (13.0-17.0) g/dL Hct (38.0-50.0) % MCV (80.0-98.0) fL MCH (27.0-32.0) pg MCHC (31.0-37.0) g/dL RDW Std Deviation (28.0-62.0) fl RDW Coeff of Bambi (11.0-15.0) % Plt Count (150-400) K/uL MPV (7.40-12.00) fL Neut % (Auto) (48.0-80.0) % Lymph % (Auto) (16.0-40.0) % [place] % (Auto) (0.0-15.0) % Eos % (Auto) (0.0-7.0) % Baso % (Auto) (0.0-1.5) % Neut # (Auto) (1.4-5.7) K/uL Lymph # (Auto) (0.6-2.4) K/uL [place] # (Auto) (0.0-0.8) K/uL Eos # (Auto) (0.0-0.7) K/uL Baso # (Auto) (0.0-0.1) K/uL Nucleated RBC % /100WBC Nucleated RBCs # K/uL Lactate (0.20-2.00) mmol/L Sodium 139 (136-146) mmol/L Potassium 3.9 (3.5-5.1) mmol/L Chloride 105 (98-110) mmol/L Carbon Dioxide 24 (21-31) mmol/L BUN 26 H (6.0-23.0) mg/dL Creatinine 1.2 (0.6-1.5) mg/dL Est Cr Clr Drug Dosing 54.01 mL/min Estimated GFR (MDRD) 59.2 ml/min Glucose 112 H (60-110) mg/dL Calcium 9.0 (8.8-10.8) mg/dL Total Bilirubin 0.4 (0.1-1.5) mg/dL AST 22 (5-40) IU/L ALT 36 (8-54) IU/L Alkaline Phosphatase 88 (40-150) Total Protein 6.1 (6.0-8.0) g/dL Albumin 3.4 (3.4-4.8) g/dL Globulin 2.7 (2.0-3.5) g/dL Albumin/Globulin Ratio 1.3 (1.3-2.8) Amylase 46 (10-90) U/L Lipase 28 (7-80) U/L Urine Color Urine Appearance Urine pH (5.0-8.0) Ur Specific [place] (1.001-1.035) Urine Protein (NEGATIVE) mg/dL Urine Glucose (UA) (NEGATIVE) mg/dL Urine Ketones (NEGATIVE) mg/dL Urine Occult Blood (NEGATIVE) Urine Nitrite (NEGATIVE) Urine Bilirubin (NEGATIVE) Urine Urobilinogen (<2.0) EU/dL Ur Leukocyte Esterase (NEGATIVE) Urine RBC (0-2/HPF) Urine WBC (0-5/HPF) Ur Epithelial Cells (NONE-FEW) Urine Bacteria (NEGATIVE) Meds: Medications Generic Name Dose Route Start Last Admin Trade Name Freq PRN Reason Stop Dose Admin Sodium Chloride 10 ml 01/08/17 04:05 01/08/17 04:24 Saline Flush FLUSH 10 ml ASDIRECTED PRN Administration Keep Vein Open Sodium Chloride 2.5 ml 01/08/17 04:05 01/08/17 04:29 Saline Flush FLUSH 2.5 ml ASDIRECTED PRN Administration Keep Vein Open Discontinued Medications Generic Name Dose Route Start Last Admin Trade Name Freq PRN Reason Stop Dose Admin Sodium Chloride 1,000 mls @ 999 mls/hr 01/08/17 04:05 01/08/17 04:24 Normal Saline IV 01/08/17 05:05 999 mls/hr STAT ONE Administration Ketorolac Tromethamine 30 mg 01/08/17 04:05 10/14/17 04:27 Toradol IVPUSH 10/14/17 04:06 30 mg ONETIME ONE Administration Departure - Departure Time of Disposition: 06:03 Disposition: Home, Self-Care 01 Condition: Good Clinical Impression: Abdominal pain Constipation Qualifiers: Constipation type: unspecified constipation type Qualified Code(s): K59.00 - Constipation, unspecified - Discharge Information Referrals: Booker Xei MD [Primary Care Provider] - Forms: ED Department Discharge Additional Instructions: The following information is given to patients seen in the emergency department who are being discharged to home. This information is to outline your options for follow-up care. We provide all patients seen in our emergency department with a follow-up referral. The need for follow-up, as well as the timing and circumstances, are variable depending upon the specifics of your emergency department visit. If you don't have a primary care physician on staff, we will provide you with a referral. We always advise you to contact your personal physician following an emergency department visit to inform them of the circumstance of the visit and for follow-up with them and/or the need for any referrals to a consulting specialist. The emergency department will also refer you to a specialist when appropriate. This referral assures that you have the opportunity for followup care with a specialist. All of these measure are taken in an effort to provide you with optimal care, which includes your followup. Under all circumstances we always encourage you to contact your private physician who remains a resource for coordinating your care. When calling for followup care, please make the office aware that this follow-up is from your recent emergency room visit. If for any reason you are refused follow-up, please contact the [facility] emergency department at and ask to speak to the emergency department charge nurse. [address] [place] [address] [facility] Primary care- Internal Medicine and Family [address] [address] Please connect with your provider at [facility] or one of our providers and also keep your appointment this week for your chemotherapy. Please start taking a daily stool softener such as Colace along with some Metamucil as long as you' re taking the pain pills for your hip pain as this will continue to constipate you. For today and tomorrow please take MiraLAX twice a day to help get things going. Push hydration and fiber rich foods. Please return to ER as needed and as discussed - My Orders Last 24 Hours: My Active Orders 01/08/17 04:05 Abdomen Pelvis w Cont [CT] Stat Sodium Chloride 0.9% [Saline Flush] 10 ml FLUSH ASDIRECTED PRN Sodium Chloride 0.9% [Saline Flush] 2.5 ml FLUSH ASDIRECTED PRN Saline Lock Insert [OM.PC] Stat - Assessment/Plan Last 24 Hours: My Active Orders 01/08/17 04:05 Abdomen Pelvis w Cont [CT] Stat Sodium Chloride 0.9% [Saline Flush] 10 ml FLUSH ASDIRECTED PRN Sodium Chloride 0.9% [Saline Flush] 2.5 ml FLUSH ASDIRECTED PRN Saline Lock Insert [OM.PC] Stat
[2017-01-08] MEDS ORDERED: Iopamidol 755 MG/ML 500 ML Multipack Bottle IVPUSH STA (06:18)
[2017-01-08 06:20] VITALS: BP 135/70
--- NOTE | 2017-01-10 10:55 | CT ---
EXAM DATE: 01/08/17 PATIENT'S AGE: 76 Patient: CASIMIRO NUGENT Facility: [place], [place] : 1940 Study: CT Abdomen/Pelvis [id number]/14/2017 5:30:39 AM Ordering Physician: CHARLOTTE Final Report: INDICATION: Abdominal pain. TECHNIQUE: CT abdomen and pelvis acquired with IV contrast. COMPARISON: CT abdomen and pelvis 11/30/2016. FINDINGS: Lower chest: Subcentimeter nodular opacities at the lung bases have increased. No pleural or pericardial effusions. Intracardiac device. . Liver: No focal lesions. . Spleen: Unremarkable. . Pancreas: Unremarkable. . Gallbladder and bile ducts: Unremarkable. . Kidneys: Infiltrative soft tissue lesion of the right kidney with soft tissue extension into the renal vein and IVC is again demonstrated. Diffuse right perinephric stranding is similar in appearance. Heterogeneous thickening and enhancement of the proximal urothelium is also similar in appearance. Left renal cyst. Delayed imaging of the kidneys demonstrates only minimal secretion of contrast material into the right renal collecting system. Normal excretion of contrast material on the left. No hydronephrosis. . Adrenal glands: New right adrenal nodule measures 2.2 x 2.1 cm. Thickening of the left adrenal gland is unchanged. . GI tract: Moderate colonic diverticulosis without evidence of acute diverticulitis. Diffuse fecal loading in the colon. No bowel obstruction or focal inflammatory changes involving the GI tract. No free intraperitoneal gas. Trace pelvic free fluid. . Vascular structures: Atherosclerotic disease. No abdominal aortic aneurysm. . Lymph nodes: Right retroperitoneal lymphadenopathy has progressed. For example, a lymph node on image 48 of series 201 measures 1.8 x 1.2 cm. . Pelvic Organs: Prostatomegaly. Bladder as imaged is unremarkable. . Bones: Ill-defined lytic lesion in the right posterior ilium is similar in appearance. Mild extra osseous tumor extension suspected. No evidence of acute, pathologic fracture. Degenerative changes of the spine and pelvis. 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 Metastatic right retroperitoneal lymphadenopathy has progressed. New or worsening metastatic nodule in the right adrenal gland. Progression of pulmonary parenchymal metastasis. Metastatic lesion in the right posterior ilium is similar in appearance. Dictated by Marquis Wilson MD @ 01/08/2017 5:54:01 AM Dictated by: Marquis Wilson MD @ 01/08/2017 05:54:28 (Electronic Signature) Report Signed by Proxy. [facility]
== END 2017-01-08 06:22 | disposition home or self-care (01) ==
LOC: MW.ED 03:43
DX: K59.00 Constipation, unspecified (principal); I10 Essential (primary) hypertension; E78.00 Pure hypercholesterolemia, unspecified; C64.9 Malignant neoplasm of unspecified kidney, except renal pelvis; C78.00 Secondary malignant neoplasm of unspecified lung; Z95.0 Presence of cardiac pacemaker; Z86.718 Personal history of other venous thrombosis and embolism
CPT/HCPCS: 74177; 80053; 81001; 82150; 83605; 83690; 85025; 96361; 96374; 99284; J1885; J7040; Q9967; 99283

== ENCOUNTER 2017-02-13 15:33 | Inpatient (IN) | payer MEDICARE, OTHER ==
[2017-02-13] MEDS ORDERED: Ondansetron 4 MG/2 ML SDV IVPUSH ONE (15:58)
--- NOTE | 2017-02-13 16:00 | EDM.PDOC ---
ED HPI GENERAL MEDICAL PROBLEM - General Chief Complaint: Abdominal Pain Stated Complaint: ABDOMINAL PAIN Time Seen by Provider: 02/13/17 15:59 Source of Information: Reports: Patient - History of Present Illness INITIAL COMMENTS - FREE TEXT/NARRATIVE: HISTORY AND PHYSICAL: History of present illness: []Patient with history of renal cell carcinoma with metastasis on chemotherapy and history of diverticulitis presents with left lower quadrant pain 8 out of 10 nonradiating consistent with diverticulitis is had fever and is diaphoretic at current intermittent nausea decreased appetite over the last 2-3 days home medication is not controlling pain, he is more comfortable after morphine and Zofran Review of systems: As per history of present illness and below otherwise all systems reviewed and negative. Past medical history: As per history of present illness and as reviewed below otherwise noncontributory. Surgical history: As per history of present illness and as reviewed below otherwise noncontributory. Social history: No reported history of drug or alcohol abuse. Family history: As per history of present illness and as reviewed below otherwise noncontributory. Physical exam: HEENT: Atraumatic, normocephalic, pupils reactive, negative for conjunctival pallor or scleral icterus, mucous membranes moist, throat clear, neck supple, nontender, trachea midline. Lungs: Clear to auscultation, breath sounds equal bilaterally, chest nontender. Heart: S1S2, regular, negative for clicks, rubs, or JVD. Abdomen: Soft, nondistended, nontender. Negative for masses or hepatosplenomegaly. Negative for costovertebral tenderness. Pelvis: Stable nontender. Genitourinary: Deferred. Rectal: Deferred. Extremities: Atraumatic, negative for cords or calf pain. Neurovascular unremarkable. Neuro: Awake, alert, oriented. Cranial nerves II through XII unremarkable. Cerebellum unremarkable. Motor and sensory unremarkable throughout. Exam nonfocal. Diagnostics: [CBC CMP cardiac enzymes amylase lipase blood cultures pending UA CT abdomen pelvis with contrast EKG Chest 1 view] Therapeutics: [Liter normal saline bolus Normal saline 1 25 mL per hour Zofran 8 mg IV Morphine 2 mg IV Cipro 400 mg IV Flagyl 500 mg IV ] Impression: Fever Renal cell carcinoma with metastasis receiving chemotherapy []Abdominal pain History of diverticulitis clinically this would represent diverticulitis Definitive disposition and diagnosis as appropriate pending reevaluation and review of above. abdomen Pain Score (Numeric/FACES): 7 - Related Data Allergies Allergy/AdvReac Type Severity Reaction Status Date / Time No Known Allergies Allergy Verified 01/08/17 03:54 Home Meds: Home Meds Metoprolol Succinate [Toprol XL] 50 mg PO BID 08/16/16 [History] Apixaban [Eliquis] 1 tab PO BID 01/08/17 [History] Metoclopramide [Reglan] 10 mg PO ASDIRECTED 01/08/17 [History] Nivolumab [Opdivo] 40 mg IV ASDIRECTED 01/08/17 [History] oxyCODONE [oxyCODONE] 1 tab PO Q6HRRT 01/08/17 [History] Past Medical History HEENT History: Reports: Impaired Vision Other HEENT History: uses reading glasses Cardiovascular History: Reports: Blood Clots/VTE/DVT, High Cholesterol, Hypertension, Pacemaker Respiratory History: Reports: None Gastrointestinal History: Reports: Diverticulosis Genitourinary History: Reports: None Other Genitourinary History: 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 , in need of port for chemo Musculoskeletal History: Reports: Other (See Below) Other Musculoskeletal History: hip pain Neurological History: Reports: Other (See Below) Other Neuro History: hx of motion sickness Psychiatric History: Reports: None Endocrine/Metabolic History: Reports: None Hematologic History: Reports: None Immunologic History: Reports: None Oncologic (Cancer) History: Reports: Renal Other Oncologic History: current Dermatologic History: Reports: None - Infectious Disease History Infectious Disease History: Reports: Measles, Mumps - Past Surgical History Head Surgeries/Procedures: Reports: None HEENT Surgical History: Reports: None Other Cardiovascular Surgeries/Procedures: pacemaker placement Social & Family History - Family History Family Medical History: Noncontributory - Tobacco Use Smoking Status *Q: Never Smoker Second Hand Smoke Exposure: No - Caffeine Use Caffeine Use: Reports: Tea, Other Other Caffeine Use: gatorade - Alcohol Use Days Per Week of Alcohol Use: 0 - Recreational Drug Use Recreational Drug Use: No Drug Use in Last 12 Months: No ED ROS GENERAL - Review of Systems Review Of Systems: ROS reveals no pertinent complaints other than HPI. ED EXAM, GENERAL - Physical Exam Exam: See Below Course - Vital Signs Last Recorded V/S: Last Vital Signs Temp 100.3 F 02/13/17 15:46 Pulse 103 H 02/13/17 15:46 Resp 18 02/13/17 15:46 BP 123/62 02/13/17 15:46 Pulse Ox 95 02/13/17 15:46 - Orders/Labs/Meds Orders: Active Orders 24 hr Category Date Time Status EKG Documentation Completion [RC] STAT Care 02/13/17 15:58 Active Abdomen Pelvis w Cont [CT] Stat Exams 02/13/17 16:25 Taken CULTURE BLOOD [BC] Stat Lab 02/13/17 16:14 Received CULTURE BLOOD [BC] Stat Lab 02/13/17 17:06 Received UA W/MICROSCOPIC [URIN] Stat Lab 02/13/17 15:58 Uncollected Sodium Chloride 0.9% [Normal Saline] 1,000 ml Med 02/13/17 16:00 Active IV STAT metroNIDAZOLE/Normal Saline [Flagyl 500 MG in NS 100 ML Med 02/13/17 18:49 Ordered ] 500 mg Premix Bag 1 bag IV ONETIME Blood Culture x2 Reflex Set [OM.PC] Stat Oth 02/13/17 16:32 Ordered Medication Orders Sodium Chloride (Normal Saline) 1,000 mls @ 125 mls/hr IV STAT [place] Last Admin: 02/13/17 16:54 Dose: 125 mls/hr Metronidazole 500 mg/ Premix 100 mls @ 100 mls/hr IV ONETIME ONE Stop: 02/13/17 19:48 Labs: Laboratory Tests 02/13/17 02/13/17 Range/Units 16:14 16:14 WBC 11.26 H (4.0-11.0) K/uL RBC 3.22 L (4.50-5.90) M/uL Hgb 9.3 L (13.0-17.0) g/dL Hct 28.8 L (38.0-50.0) % MCV 89.4 (80.0-98.0) fL MCH 28.9 (27.0-32.0) pg MCHC 32.3 (31.0-37.0) g/dL RDW Std Deviation 49.9 (28.0-62.0) fl RDW Coeff of Bambi 15 (11.0-15.0) % Plt Count 187 (150-400) K/uL MPV 9.90 (7.40-12.00) fL Neut % (Auto) 89.5 H (48.0-80.0) % Lymph % (Auto) 3.6 L (16.0-40.0) % Elbert % (Auto) 6.0 (0.0-15.0) % Eos % (Auto) 0.8 (0.0-7.0) % Baso % (Auto) 0.1 (0.0-1.5) % Neut # (Auto) 10.1 H (1.4-5.7) K/uL Lymph # (Auto) 0.4 L (0.6-2.4) K/uL Elbert # (Auto) 0.7 (0.0-0.8) K/uL Eos # (Auto) 0.1 (0.0-0.7) K/uL Baso # (Auto) 0.0 (0.0-0.1) K/uL Nucleated RBC % 0.0 /100WBC Nucleated RBCs # 0 K/uL Sodium 135 L (136-146) mmol/L Potassium 4.4 (3.5-5.1) mmol/L Chloride 102 (98-110) mmol/L Carbon Dioxide 23 (21-31) mmol/L BUN 19 (6.0-23.0) mg/dL Creatinine 1.1 (0.6-1.5) mg/dL Est Cr Clr Drug Dosing 56.32 mL/min Estimated GFR (MDRD) > 60.0 ml/min Glucose 143 H (60-110) mg/dL Calcium 8.6 L (8.8-10.8) mg/dL Total Bilirubin 0.6 (0.1-1.5) mg/dL AST 11 (5-40) IU/L ALT 15 (8-54) IU/L Alkaline Phosphatase 85 (40-150) Troponin I < 0.10 (0.0-0.29) NG/ML Total Protein 6.1 (6.0-8.0) g/dL Albumin 3.3 L (3.4-4.8) g/dL Globulin 2.8 (2.0-3.5) g/dL Albumin/Globulin Ratio 1.2 L (1.3-2.8) Amylase 50 (10-90) U/L Lipase 23 (7-80) U/L Meds: Medications Generic Name Dose Route Start Last Admin Trade Name Freq PRN Reason Stop Dose Admin Sodium Chloride 1,000 mls @ 125 mls/hr 02/13/17 16:00 02/13/17 16:54 Normal Saline IV 125 mls/hr STAT [place] Administration Metronidazole 500 mg/ Premix 100 mls @ 100 mls/hr 02/13/17 18:49 IV 02/13/17 19:48 ONETIME ONE Discontinued Medications Generic Name Dose Route Start Last Admin Trade Name Elvira PRN Reason Stop Dose Admin Iopamidol 100 ml 02/13/17 17:23 Isovue-370 (76%) IVPUSH 02/13/17 17:24 ONETIME STA Morphine Sulfate 2 mg 02/13/17 16:54 02/13/17 16:58 Morphine IV 02/13/17 16:55 2 mg ONETIME ONE Administration Ondansetron HCl 8 mg 02/13/17 15:58 02/13/17 16:58 Zofran IVPUSH 02/13/17 15:59 8 mg ONETIME ONE Administration Departure - Departure Time of Disposition: 18:54 Disposition: Admitted As Inpatient 68 Condition: Poor Clinical Impression: Fever, Diverticulitis, Abdominal pain Renal cell cancer Qualifiers: Laterality: right Qualified Code(s): C64.1 - Malignant neoplasm of right kidney , except renal pelvis - Discharge Information Referrals: PCP,Unknown [Primary Care Provider] - Forms: ED Department Discharge - My Orders Last 24 Hours: My Active Orders 02/13/17 15:58 EKG Documentation Completion [RC] STAT UA W/MICROSCOPIC [URIN] Stat 02/13/17 16:00 Sodium Chloride 0.9% [Normal Saline] 1,000 ml IV STAT 02/13/17 16:14 CULTURE BLOOD [BC] Stat 02/13/17 16:25 Abdomen Pelvis w Cont [CT] Stat 02/13/17 16:32 Blood Culture x2 Reflex Set [OM.PC] Stat 02/13/17 17:06 CULTURE BLOOD [BC] Stat 02/13/17 18:49 metroNIDAZOLE/Normal Saline [Flagyl 500 MG in NS 100 ML] 500 mg Premix Bag 1 bag IV ONETIME - Assessment/Plan Last 24 Hours: My Active Orders 02/13/17 15:58 EKG Documentation Completion [RC] STAT UA W/MICROSCOPIC [URIN] Stat 02/13/17 16:00 Sodium Chloride 0.9% [Normal Saline] 1,000 ml IV STAT 02/13/17 16:14 CULTURE BLOOD [BC] Stat 02/13/17 16:25 Abdomen Pelvis w Cont [CT] Stat 02/13/17 16:32 Blood Culture x2 Reflex Set [OM.PC] Stat 02/13/17 17:06 CULTURE BLOOD [BC] Stat 02/13/17 18:49 metroNIDAZOLE/Normal Saline [Flagyl 500 MG in NS 100 ML] 500 mg Premix Bag 1 bag IV ONETIME
[2017-02-13 16:54] LABS: CHLORIDE,CL 102 mmol/L (98-110); SODIUM,NA 135 mmol/L (136-146)
[2017-02-13] MEDS: Sodium Chloride 0.9% 1,000 ML IV SCH (16:54)
[2017-02-13] MEDS ORDERED: Morphine 10 MG/ML Syringe IV ONE (16:54)
[2017-02-13] MEDS ORDERED: Iopamidol 755 Mg/ML 100 ML Bottle IVPUSH STA (17:23)
[2017-02-13] MEDS ORDERED: metroNIDAZOLE/Normal Saline 500 MG in Premix Bag 1 BAG IV ONE (18:49)
[2017-02-13] MEDS ORDERED: Ciprofloxacin in D5W 400 MG in Premix Bag 1 BAG IV ONE ×2 (19:02)
[2017-02-13] MEDS ORDERED: Morphine 2 MG/ML Syringe IVPUSH PRN (19:59)
[2017-02-13] MEDS ORDERED: Acetaminophen 325 MG Tab PO PRN (19:59)
[2017-02-13] MEDS ORDERED: Bisacodyl 5 MG Tab PO PRN (20:02)
[2017-02-13] MEDS ORDERED: Docusate Sodium 100 MG Cap PO PRN (20:02)
--- NOTE | 2017-02-13 20:09 | PCM.HP ---
H&P History of Present Illness - General Admit Problem/Dx: Admission Diagnosis/Problem Admission Diagnosis/Problem Fever - History of Present Illness Initial Comments - Free Text/Narative: 76 yo male with pmh of metastatic renal cancer who is on Obdivo and receiving palliative xrt. He presents with several day history of left sided abdominal pain. He reports mild fever but denies any diarrhea, cough, or shortness of breath. CT scan of abdomen performed in ED reported intiltrative lesion occupying most of the right kidney, enhancing tumor thrombus present within the right renal vein extending into the IVC, multible small nodules in posterior lower lobes bilaterally, lytic lesion in the right posterior iliac bone and new dodular soft tissue masses present i nthe left upper quadrant omentum measuring 7.2 by 3.3 cm. abdomen Pain Score (Numeric/FACES): 7 - Related Data Allergies/Adverse Reactions: Allergies Allergy/AdvReac Type Severity Reaction Status Date / Time No Known Allergies Allergy Verified 01/08/17 03:54 Home Medications: Home Meds Metoprolol Succinate [Toprol XL] 50 mg PO BID 08/16/16 [History] Apixaban [Eliquis] 1 tab PO BID 01/08/17 [History] Metoclopramide [Reglan] 10 mg PO QID PRN 01/08/17 [History] Nivolumab [Opdivo] 40 mg IV ASDIRECTED 01/08/17 [History] oxyCODONE [oxyCODONE] 1 tab PO Q4HR PRN 01/08/17 [History] Past Medical History HEENT History: Reports: Impaired Vision Other HEENT History: uses reading glasses Cardiovascular History: Reports: Blood Clots/VTE/DVT, High Cholesterol, Hypertension, Pacemaker Respiratory History: Reports: None Gastrointestinal History: Reports: Diverticulosis Genitourinary History: Reports: None Other Genitourinary History: 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 , in need of port for chemo Musculoskeletal History: Reports: Other (See Below) Other Musculoskeletal History: hip pain Neurological History: Reports: Other (See Below) Other Neuro History: hx of motion sickness Psychiatric History: Reports: None Endocrine/Metabolic History: Reports: None Hematologic History: Reports: None Immunologic History: Reports: None Oncologic (Cancer) History: Reports: Renal Other Oncologic History: current Dermatologic History: Reports: None - Infectious Disease History Infectious Disease History: Reports: Measles, Mumps - Past Surgical History Head Surgeries/Procedures: Reports: None HEENT Surgical History: Reports: None Other Cardiovascular Surgeries/Procedures: pacemaker placement Social & Family History - Family History Family Medical History: Noncontributory - Tobacco Use Smoking Status *Q: Never Smoker Second Hand Smoke Exposure: No - Caffeine Use Caffeine Use: Reports: Tea, Other Other Caffeine Use: gatorade - Alcohol Use Days Per Week of Alcohol Use: 0 - Recreational Drug Use Recreational Drug Use: No Drug Use in Last 12 Months: No H&P Review of Systems - Review of Systems: Review Of Systems: ROS reveals no pertinent complaints other than HPI. Exam - Exam Exam: See Below - Vital Signs Vital Signs: Last Vital Signs Temp 37.9 C 02/13/17 15:46 Pulse 103 H 02/13/17 15:46 Resp 18 02/13/17 15:46 BP 123/62 02/13/17 15:46 Pulse Ox 95 02/13/17 15:46 Weight: 67.585 kg - Exam General: Alert, Oriented Lungs: Clear to Auscultation, Normal Respiratory Effort Cardiovascular: Regular Rate, Regular Rhythm GI/Abdominal Exam: Soft, Tender Extremities: Non-Tender, No Pedal Edema Skin: Warm, Dry, Intact - Patient Data Result Diagrams: 02/14/17 06:23 02/14/17 06:23 *Q Meaningful Use (ADM) - VTE *Q VTE Criteria *Q: - Stroke *Q Stroke Criteria *Q: - AMI *Q AMI Criteria *Q: Problem List Initiated/Reviewed/Updated: Yes Orders Last 24hrs: Active Orders 24 hr Category Date Time Status Antiembolic Devices [RC] PER UNIT ROUTINE Care 02/13/17 20:00 Ordered Oxygen Therapy [RC] PRN Care 02/13/17 19:59 Ordered Up ad Melia [RC] ASDIRECTED Care 02/13/17 19:59 Ordered VTE/DVT Education [RC] PER UNIT ROUTINE Care 02/13/17 19:59 Ordered Vital Signs [RC] Q4H Care 02/13/17 19:59 Ordered Regular Diet [DIET] Diet 02/13/17 Breakfast Ordered BASIC METABOLIC PANEL,BMP [CHEM] AM Lab 02/14/17 05:11 Ordered CBC WITH AUTO DIFF [HEME] AM Lab 02/14/17 05:11 Ordered CULTURE URINE [RM] Routine Lab 02/13/17 19:56 Uncollected Acetaminophen [Tylenol] Med 02/13/17 19:59 Ordered 650 mg PO Q4H PRN Apixaban [Eliquis] Med 02/13/17 21:00 Ordered 1 tab PO BID Bisacodyl [Dulcolax] Med 02/13/17 20:02 Ordered 5 mg PO DAILY PRN Ciprofloxacin in D5W [Cipro in D5W 400 MG/200 ML] 400 Med 02/14/17 08:00 Ordered mg Premix Bag 1 bag IV Q12H Docusate Sodium [Colace] Med 02/13/17 20:02 Ordered 100 mg PO DAILY PRN Metoprolol Succinate [Toprol XL] Med 02/13/17 21:00 Ordered 50 mg PO BID Morphine Med 02/13/17 19:59 Ordered 2 mg IVPUSH Q2H PRN Ondansetron [Zofran] Med 02/13/17 19:59 Ordered 4 mg IVPUSH Q4H PRN metroNIDAZOLE/Normal Saline [Flagyl 500 MG in NS 100 ML Med 02/14/17 02:00 Ordered ] 500 mg Premix Bag 1 bag IV QID oxyCODONE Med 02/13/17 19:59 Ordered 5 mg PO Q4H PRN Sequential Compression Device [OM.PC] Per Unit Routine Oth 02/13/17 19:59 Ordered Resuscitation Status Routine Resus Stat 02/13/17 19:59 Ordered Medication Orders Acetaminophen (Tylenol) 650 mg PO Q4H PRN PRN Reason: Pain (Mild 1-3)/fever Sodium Chloride (Normal Saline) 1,000 mls @ 125 mls/hr IV STAT [facility] Last Admin: 02/13/17 16:54 Dose: 125 mls/hr Ciprofloxacin/Dextrose 400 mg/ (Premix) 200 mls @ 200 mls/hr IV Q12H [place] Metronidazole 500 mg/ Premix 100 mls @ 100 mls/hr IV QID [facility] Morphine Sulfate (Morphine) 2 mg IVPUSH Q2H PRN PRN Reason: Pain (severe 7-10) Stop: 02/14/17 19:59 Ondansetron HCl (Zofran) 4 mg IVPUSH Q4H PRN PRN Reason: Nausea Oxycodone HCl (Oxycodone) 5 mg PO Q4H PRN PRN Reason: Pain (moderate 4-6) Assessment/Plan Comment:: 76 yo male who presents with left sided abdominal pain. This is likely due to progression of his cancer. We will admit for pain control. He has received flagyl and ciprofloxacin for possible diverticulitis. This would also cover UTI as UA is nitrate positive. Blood and urine cultures are pending. We will resume his eliquis for his history of PE.
[2017-02-13] MEDS ORDERED: Ciprofloxacin in D5W 200 ML ONE (20:10)
[2017-02-13] MEDS: Apixaban 5 MG Tab PO SCH (20:13)
[2017-02-13] MEDS: Metoprolol Succinate 50 MG Tab.ER PO SCH (20:13)
[2017-02-14] MEDS: metroNIDAZOLE/Normal Saline 500 MG in Premix Bag 1 BAG IV SCH ×5 (01:01→23:15)
[2017-02-14] MEDS: Sodium Chloride 0.9% 1,000 ML IV SCH (03:11)
[2017-02-14 06:52] LABS: CHLORIDE,CL 105 mmol/L (98-110); SODIUM,NA 135 mmol/L (136-146)
[2017-02-14] MEDS: Ciprofloxacin in D5W 400 MG in Premix Bag 1 BAG IV SCH ×4 (07:46→20:20)
[2017-02-14] MEDS: Metoprolol Succinate 50 MG Tab.ER PO SCH ×2 (08:02→20:19)
[2017-02-14] MEDS: Apixaban 5 MG Tab PO SCH ×3 (11:00→20:19)
--- NOTE | 2017-02-14 11:26 | PCM.PN ---
- General Info Date of Service: 02/14/17 Admission Dx/Problem (Free Text): Admission Diagnosis/Problem Admission Diagnosis/Problem LUQ Abdominal pain Subjective Update: Continues to have LUQ pain and poor appetite. More concerned about pain. No black or bloody BMS, does have blood in urine all the time. VOiding ok. No chest pain or SOB. Pain to LUQ is sharp in nature and catches him off guard. Functional Status: Reports: Ambulating, Urinating. Denies: Pain Controlled - Review of Systems General: Denies: Appetite (poor appetite) Pulmonary: Reports: No Symptoms. Denies: Shortness of Breath Cardiovascular: Reports: No Symptoms. Denies: Chest Pain Gastrointestinal: Reports: Abdominal Pain (LUQ, sharp). Denies: Constipation, Melena, Nausea, Vomiting Genitourinary: Reports: Hematuria Neurological: Reports: No Symptoms Psychiatric: Reports: No Symptoms - Patient Data Vitals - Most Recent: Last Vital Signs Temp 97.9 F 02/14/17 08:00 Pulse 68 02/14/17 08:02 Resp 20 02/14/17 08:00 BP 117/62 02/14/17 08:02 Pulse Ox 92 L 02/14/17 08:00 Weight - Most Recent: 67.6 kg I&O - Last 24 Hours: Intake & Output 02/13/17 02/14/17 02/14/17 22:59 06:59 14:59 Intake Total 200 300 200 Output Total 200 Balance 200 100 200 Lab Results Last 24 Hours: Laboratory Results - last 24 hr 02/14/17 02/14/17 Range/Units 06:23 06:23 WBC 6.35 (4.0-11.0) K/uL RBC 2.46 L (4.50-5.90) M/uL Hgb 7.1 L (13.0-17.0) g/dL Hct 21.9 L (38.0-50.0) % MCV 89.0 (80.0-98.0) fL MCH 28.9 (27.0-32.0) pg MCHC 32.4 (31.0-37.0) g/dL RDW Std Deviation 50.3 (28.0-62.0) fl RDW Coeff of Bambi 16 H (11.0-15.0) % Plt Count 124 L (150-400) K/uL MPV 9.40 (7.40-12.00) fL Neut % (Auto) 86.6 H (48.0-80.0) % Lymph % (Auto) 4.7 L (16.0-40.0) % Delta % (Auto) 7.4 (0.0-15.0) % Eos % (Auto) 1.1 (0.0-7.0) % Baso % (Auto) 0.2 (0.0-1.5) % Neut # (Auto) 5.5 (1.4-5.7) K/uL Lymph # (Auto) 0.3 L (0.6-2.4) K/uL Delta # (Auto) 0.5 (0.0-0.8) K/uL Eos # (Auto) 0.1 (0.0-0.7) K/uL Baso # (Auto) 0.0 (0.0-0.1) K/uL Nucleated RBC % 0.0 /100WBC Nucleated RBCs # 0 K/uL Sodium 135 L (136-146) mmol/L Potassium 4.4 (3.5-5.1) mmol/L Chloride 105 (98-110) mmol/L Carbon Dioxide 24 (21-31) mmol/L BUN 17 (6.0-23.0) mg/dL Creatinine 1.1 (0.6-1.5) mg/dL Est Cr Clr Drug Dosing 56.33 mL/min Estimated GFR (MDRD) > 60.0 ml/min Glucose 109 (60-110) mg/dL Calcium 7.8 L (8.8-10.8) mg/dL Med Orders - Current: Current Medications Acetaminophen (Tylenol) 650 mg PO Q4H PRN PRN Reason: Pain (Mild 1-3)/fever Apixaban (Eliquis) 5 mg PO BID [facility] Last Admin: 02/14/17 11:00 Dose: Not Given Bisacodyl (Dulcolax) 5 mg PO DAILY PRN PRN Reason: Constipation Docusate Sodium (Colace) 100 mg PO DAILY PRN PRN Reason: Constipation Fentanyl (Duragesic) 12 mcg TRDERM Q72H [facility] Ciprofloxacin/Dextrose 400 mg/ (Premix) 200 mls @ 200 mls/hr IV Q12H [facility] Last Admin: 02/14/17 07:46 Dose: 200 mls/hr Metronidazole 500 mg/ Premix 100 mls @ 100 mls/hr IV QID [facility] Last Admin: 02/14/17 05:01 Dose: 100 mls/hr Megestrol Acetate (Megace 40 Mg/Ml Susp) 400 mg PO DAILY [facility] Metoprolol Succinate (Toprol Xl) 50 mg PO BID [facility] Last Admin: 02/14/17 08:02 Dose: 50 mg Morphine Sulfate (Morphine) 2 mg IVPUSH Q2H PRN PRN Reason: Pain (severe 7-10) Stop: 02/14/17 19:59 Last Admin: 02/13/17 20:21 Dose: 2 mg Ondansetron HCl (Zofran) 4 mg IVPUSH Q4H PRN PRN Reason: Nausea Oxycodone HCl (Oxycodone) 5 mg PO Q4H PRN PRN Reason: Pain (moderate 4-6) Discontinued Medications Sodium Chloride (Normal Saline) 1,000 mls @ 125 mls/hr IV STAT [facility] Last Admin: 02/14/17 03:11 Dose: 125 mls/hr Metronidazole 500 mg/ Premix 100 mls @ 100 mls/hr IV ONETIME ONE Stop: 02/13/17 19:48 Last Admin: 02/13/17 19:04 Dose: 100 mls/hr Ciprofloxacin/Dextrose 400 mg/ (Premix) 200 mls @ 200 mls/hr IV ONETIME ONE Stop: 02/13/17 20:01 Last Admin: 02/13/17 20:13 Dose: 200 mls/hr Ciprofloxacin/Dextrose (Cipro In D5w 400 Mg/200 Ml) Confirm Administered Dose 200 mls @ as directed .ROUTE .STK-MED ONE Stop: 02/13/17 20:11 Last Admin: 02/13/17 20:23 Dose: Not Given Iopamidol (Isovue-370 (76%)) 100 ml IVPUSH ONETIME STA Stop: 02/13/17 17:24 Last Admin: 02/13/17 19:50 Dose: Not Given Morphine Sulfate (Morphine) 2 mg IV ONETIME ONE Stop: 02/13/17 16:55 Last Admin: 02/13/17 16:58 Dose: 2 mg Ondansetron HCl (Zofran) 8 mg IVPUSH ONETIME ONE Stop: 02/13/17 15:59 Last Admin: 02/13/17 16:58 Dose: 8 mg - Exam Quality Assessment: No: Supplemental Oxygen General: Alert, Oriented, Cooperative, Other (pale in appearance) Neck: Supple Lungs: Clear to Auscultation, Normal Respiratory Effort Cardiovascular: Regular Rate, Regular Rhythm GI/Abdominal Exam: Normal Bowel Sounds, Soft, No Distention, No Mass (No obvious masses felt), Tender (LUQ) Extremities: Normal Inspection, Normal Range of Motion, Non-Tender, No Pedal Edema, Normal Capillary Refill Neurological: No New Focal Deficit Psy/Mental Status: Alert, Normal Affect, Normal Mood - Problem List & Annotations (1) Abdominal pain SNOMED Code(s): 40721689 Code(s): R10.9 - UNSPECIFIED ABDOMINAL PAIN Status: Acute Current Visit: Yes (2) Poor appetite SNOMED Code(s): 82500597 Code(s): R63.0 - ANOREXIA Status: Acute Current Visit: Yes (3) Diverticulitis SNOMED Code(s): 092765589 Code(s): K57.92 - DVTRCLI OF INTEST, PART UNSP, W/O PERF OR ABSCESS W/O BLEED Status: Suspected Current Visit: Yes (4) Metastatic renal cell carcinoma SNOMED Code(s): 105859231 Code(s): C64.9 - MALIGNANT NEOPLASM OF UNSP KIDNEY, EXCEPT RENAL PELVIS Status: Chronic Current Visit: Yes Qualifiers: Laterality: left Qualified Code(s): C64.2 - Malignant neoplasm of left kidney, except renal pelvis (5) Renal cell cancer SNOMED Code(s): 628121966 Code(s): C64.9 - MALIGNANT NEOPLASM OF UNSP KIDNEY, EXCEPT RENAL PELVIS Status: Chronic Priority: High Current Visit: Yes Qualifiers: Laterality: right Qualified Code(s): C64.1 - Malignant neoplasm of right kidney, except renal pelvis (6) Pulmonary embolism SNOMED Code(s): 61460193 Code(s): I26.99 - OTHER PULMONARY EMBOLISM WITHOUT ACUTE COR PULMONALE Status: Chronic Priority: High Current Visit: No Qualifiers: Chronicity: chronic Acute cor pulmonale presence: without acute cor pulmonale (7) Pacemaker SNOMED Code(s): 184592134 Code(s): Z95.0 - PRESENCE OF CARDIAC PACEMAKER Status: Chronic Priority: High Current Visit: No Annotation/Comment:: Abnormal pacemaker pacing, resolved noted to be artifact - Problem List Review Problem List Initiated/Reviewed/Updated: Yes - My Orders Last 24 Hours: My Active Orders 02/14/17 10:50 Hemoccult [Fecal Occult Blood Collection] [RC] ASDIRECTED 02/14/17 11:22 Verify Patient Consent Obtain [RC] ASDIRECTED RED BLOOD CELLS LP [BBK] Routine TYPE AND SCREEN [BBK] Routine Transfuse Red Blood Cells [COMM] Routine 02/14/17 11:30 Megestrol [Megace 40 MG/ML Susp] 400 mg PO DAILY fentaNYL [Duragesic] 12 mcg TRDERM Q72H - Plan Plan:: This 76 year old male admitted with suspected diverticulitis, fever, with metastatic renal cancer and LUQ pain. 1. Abdominal pain: Covering with Flagyl and Ciprofloxacin for suspected diverticulitis due to fever and pain. No longer febrile. BC pending. Pain likely due to new soft tissue masses in LUQ measuring 7.2 x 3.3 cm. I spoke with Dr. Lara, Oncologist regarding these new findings. He recommended currently to get pain under control and he will need to discuss with them switching treatments. I will trial Fentanyl 12 mcg transdermal patch. patient reports oral pills nauseate him. Oxycodone will be available PRN from breakthrough pain. Arrange follow up with Oncologist this week. 2. Poor appetite: Will start Megace today. 3. Anemia: Hgb 7.1 today. Likely secondary to hematuria and IV hydration. Continue Eliquis due to hx PE and high risk for further VTE. Will transfuse 2 units PRBCs today. Monitor hgb. 4. Hx PE: Continue Eliquis. 5. Possible UTI: Covering with Ciprofloxacin. VTE prophylaxis: Eliquis. Dispo: 1-2 days pending improvement in pain and hgb.
[2017-02-14] MEDS ORDERED: fentaNYL 12 MCG/HR Transdermal Patch TRDERM SCH (11:30)
[2017-02-14] MEDS: Megestrol Susp 40 MG/ML 10 ML UD Cup PO SCH (12:03)
--- NOTE | 2017-02-14 16:14 | CT ---
EXAM DATE: 02/13/17 PATIENT'S AGE: 76 Patient: CASIMIRO NUGENT Facility: [place], [place] Site . Site : 1940 Study: CT Abdomen/Pelvis [id number] 5:44:03 PM Ordering Physician: Naomi Carrington Final Report: INDICATION: Abdominal pain, history of renal cancer. TECHNIQUE: CT Abdomen and pelvis with i.v. contrast. Coronal and sagittal reformats were obtained. Delayed phase images of the abdomen were obtained. CONTRAST: Intravenous COMPARISON: 01/08/2017, 12/07/2016, 11/30/2016 FINDINGS: Lower chest: There is a 1.2 x 0.5 cm nodule in the right lower lobe with multiple small subcentimeter nodules seen in the posterior lower lobes bilaterally. These have increased in size and number from prior examination. Liver: Unremarkable. Spleen: Unremarkable. Pancreas: Unremarkable. Gallbladder: Unremarkable. Kidney: There is an infiltrative lesion seen occupying most of the right kidney with thickening in the right renal pelvis urothelium. The mass has increased involvement of the renal pelvis since prior examination, suspicious for transitional cell carcinoma. Enhancing tumor thrombus is present within the right renal vein, extending into the IVC. Simple cysts are present in the left kidney measuring up to 2.8 cm. Adrenal: A right adrenal mass is present measuring 3.6 cm and has significantly increased in size since prior examination. GI tract: Severe sigmoid diverticulosis is present with no evidence of diverticulitis. The appendix is normal in appearance and size. Vascular: Retroperitoneal lymph nodes are present in the aortocaval and retrocaval region measuring up to 1.4 cm. These have progressed from prior examination and likely harbor metastatic disease. Peritoneum: New nodular soft tissue masses present in the left upper quadrant omentum, measuring 7.2 x 3.3 cm. No pneumoperitoneum is seen. A small amount of pelvic ascites is noted. Pelvis: Unremarkable. Bones: Unremarkable for age. Miscellaneous: There is a lytic lesion in the right posterior iliac bone and measures 2.5 x 2.3 cm, likely a metastatic focus. IMPRESSIONS: 1. There is an infiltrative lesion seen occupying most of the right kidney with thickening in the right renal pelvis urothelium. The mass has increased involvement of the renal pelvis since prior examination, suspicious for transitional cell carcinoma. 2. Enhancing tumor thrombus is present within the right renal vein, extending into the IVC. 3. There is a 1.2 x 0.5 cm nodule in the right lower lobe with multiple small subcentimeter nodules seen in the posterior lower lobes bilaterally. Findings are suspicious for metastatic disease. 4. A right adrenal mass is present measuring 3.6 cm and has significantly increased in size since prior examination. 5. There is a lytic lesion in the right posterior iliac bone and measures 2.5 x 2.3 cm, likely a metastatic focus. 6. New nodular soft tissue masses present in the left upper quadrant omentum, measuring 7.2 x 3.3 cm. 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 Dictated by Deonte Donnelly MD @ 02/13/2017 6:34:59 PM Dictated by: Deonte Donnelly MD @ 02/13/2017 18:35:11 (Electronic Signature) Report Signed by Proxy. MTDAyo
--- NOTE | 2017-02-14 16:15 | CR ---
EXAM DATE: 02/13/17 PATIENT'S AGE: 76 Patient: CASIMIRO NUGENT Facility: [place], [place] Site . Site : 1940 Study: XRay Chest [id number]/19/2017 7:30:36 PM Ordering Physician: Naomi Carrington Final Report: INDICATION: Shortness of breath TECHNIQUE: Chest radiograph 1 view COMPARISON: 12/07/2016 FINDINGS: Mediastinum: The mediastinum is normal in appearance. There is a left cardiac pacer present with leads in the right atrium and right ventricle. A right cardiac border is present with the tip in the SVC. Lungs: Mild nodular infiltrates are present in the subpleural right midlung zone without interval change. No sign of pleural effusion seen. No pneumothorax is identified. Bones: Unremarkable for age. IMPRESSION: 1. Mild nodular infiltrates are present in the subpleural right midlung zone without interval change. Dictated by Deonte Donnelly MD @ 02/13/2017 7:55:48 PM Dictated by: Deonte Donnelly MD @ 02/13/2017 19:55:53 (Electronic Signature) Report Signed by Proxy. [facility]ENTER[facility]
[2017-02-14] MEDS: Ondansetron 4 MG/2 ML SDV IVPUSH PRN (21:42)
[2017-02-15] MEDS: oxyCODONE 5 MG Tab PO PRN ×2 (00:40→18:59)
[2017-02-15] MEDS: metroNIDAZOLE/Normal Saline 500 MG in Premix Bag 1 BAG IV SCH ×3 (05:05→18:00)
[2017-02-15 05:52] LABS: CHLORIDE,CL 106 mmol/L (98-110); SODIUM,NA 135 mmol/L (136-146)
[2017-02-15] MEDS: Megestrol Susp 40 MG/ML 10 ML UD Cup PO SCH (08:33)
[2017-02-15] MEDS: Docusate Sodium 100 MG Cap PO SCH (08:34)
[2017-02-15] MEDS: Apixaban 5 MG Tab PO SCH ×2 (08:34→20:09)
[2017-02-15] MEDS: Ciprofloxacin in D5W 400 MG in Premix Bag 1 BAG IV SCH ×4 (08:35→20:10)
[2017-02-15] MEDS: Metoprolol Succinate 50 MG Tab.ER PO SCH ×2 (08:35→20:09)
[2017-02-15] MEDS: Ondansetron 4 MG/2 ML SDV IVPUSH PRN (08:40)
--- NOTE | 2017-02-15 10:42 | PCM.PN ---
<Jacque Daniel M - Last Filed: 02/15/17 10:43> - General Info Date of Service: 02/15/17 Admission Dx/Problem (Free Text): Admission Diagnosis/Problem Admission Diagnosis/Problem Fever Subjective Update: Feeling nauseated this morning, "feels like a ball in my stomach". Tolerated some oatmeal. Pain is doing better today with patch, needed 1 extra dose of Oxycodone in the night for breakthrough pain. Doesn't feel quite ok to be discharged today and would like one more day to feel better. Functional Status: Reports: Pain Controlled, Tolerating Diet (somewhat), Ambulating, Urinating - Review of Systems HEENT: Reports: No Symptoms. Denies: Headaches, Sore Throat, Rhinitis Pulmonary: Reports: No Symptoms. Denies: Shortness of Breath, Cough, Sputum Cardiovascular: Reports: No Symptoms. Denies: Chest Pain, Palpitations, Edema Gastrointestinal: Reports: Abdominal Pain (LUQ intermittently), Decreased Appetite, Nausea, Vomiting Genitourinary: Reports: Hematuria Neurological: Reports: No Symptoms Psychiatric: Reports: No Symptoms - Patient Data Vitals - Most Recent: Last Vital Signs Temp 98.2 F 02/15/17 08:00 Pulse 80 02/15/17 08:35 Resp 22 H 02/15/17 08:00 BP 110/60 02/15/17 08:35 Pulse Ox 95 02/15/17 08:00 Weight - Most Recent: 149 lb I&O - Last 24 Hours: Intake & Output 02/14/17 02/15/17 02/15/17 22:59 06:59 14:59 Intake Total 1006 450 Output Total 550 400 Balance 456 50 Lab Results Last 24 Hours: Laboratory Results - last 24 hr 02/14/17 02/15/17 02/15/17 Range/Units 11:40 05:02 05:02 WBC 8.36 (4.0-11.0) K/uL RBC 3.06 L (4.50-5.90) M/uL Hgb 8.7 L (13.0-17.0) g/dL Hct 26.8 L (38.0-50.0) % MCV 87.6 (80.0-98.0) fL MCH 28.4 (27.0-32.0) pg MCHC 32.5 (31.0-37.0) g/dL RDW Std Deviation 51.1 (28.0-62.0) fl RDW Coeff of Bambi 16 H (11.0-15.0) % Plt Count 124 L (150-400) K/uL MPV 8.90 (7.40-12.00) fL Neut % (Auto) 87.0 H (48.0-80.0) % Lymph % (Auto) 3.7 L (16.0-40.0) % Louisa % (Auto) 7.9 (0.0-15.0) % Eos % (Auto) 1.2 (0.0-7.0) % Baso % (Auto) 0.2 (0.0-1.5) % Neut # (Auto) 7.3 H (1.4-5.7) K/uL Lymph # (Auto) 0.3 L (0.6-2.4) K/uL Louisa # (Auto) 0.7 (0.0-0.8) K/uL Eos # (Auto) 0.1 (0.0-0.7) K/uL Baso # (Auto) 0.0 (0.0-0.1) K/uL Nucleated RBC % 0.0 /100WBC Nucleated RBCs # 0 K/uL Sodium 135 L (136-146) mmol/L Potassium 4.2 (3.5-5.1) mmol/L Chloride 106 (98-110) mmol/L Carbon Dioxide 21 (21-31) mmol/L BUN 18 (6.0-23.0) mg/dL Creatinine 1.0 (0.6-1.5) mg/dL Est Cr Clr Drug Dosing 61.95 mL/min Estimated GFR (MDRD) > 60.0 ml/min Glucose 100 (60-110) mg/dL Calcium 7.4 L (8.8-10.8) mg/dL Blood Type A POSITIVE Antibody Screen NEGATIVE Crossmatch See Detail Med Orders - Current: Current Medications Acetaminophen (Tylenol) 650 mg PO Q4H PRN PRN Reason: Pain (Mild 1-3)/fever Last Admin: 02/14/17 14:21 Dose: 650 mg Apixaban (Eliquis) 5 mg PO BID [place] Last Admin: 02/15/17 08:34 Dose: 5 mg Bisacodyl (Dulcolax) 5 mg PO DAILY PRN PRN Reason: Constipation Docusate Sodium (Colace) 100 mg PO DAILY [facility] Last Admin: 02/15/17 08:34 Dose: 100 mg Fentanyl (Duragesic) 12 mcg TRDERM Q72H [facility] Last Admin: 02/14/17 12:10 Dose: 12 mcg Ciprofloxacin/Dextrose 400 mg/ (Premix) 200 mls @ 200 mls/hr IV Q12H [facility] Last Admin: 02/15/17 08:35 Dose: 200 mls/hr Metronidazole 500 mg/ Premix 100 mls @ 100 mls/hr IV QID [facility] Last Admin: 02/15/17 05:05 Dose: 100 mls/hr Megestrol Acetate (Megace 40 Mg/Ml Susp) 400 mg PO DAILY [facility] Last Admin: 02/15/17 08:33 Dose: 400 mg Metoprolol Succinate (Toprol Xl) 50 mg PO BID [facility] Last Admin: 02/15/17 08:35 Dose: 50 mg Ondansetron HCl (Zofran) 4 mg IVPUSH Q4H PRN PRN Reason: Nausea Last Admin: 02/15/17 08:40 Dose: 4 mg Oxycodone HCl (Oxycodone) 5 mg PO Q4H PRN PRN Reason: Pain (moderate 4-6) Last Admin: 02/15/17 00:40 Dose: 5 mg Discontinued Medications Docusate Sodium (Colace) 100 mg PO DAILY PRN PRN Reason: Constipation Sodium Chloride (Normal Saline) 1,000 mls @ 125 mls/hr IV STAT [facility] Last Admin: 02/14/17 03:11 Dose: 125 mls/hr Metronidazole 500 mg/ Premix 100 mls @ 100 mls/hr IV ONETIME ONE Stop: 02/13/17 19:48 Last Admin: 02/13/17 19:04 Dose: 100 mls/hr Ciprofloxacin/Dextrose 400 mg/ (Premix) 200 mls @ 200 mls/hr IV ONETIME ONE Stop: 02/13/17 20:01 Last Admin: 02/13/17 20:13 Dose: 200 mls/hr Ciprofloxacin/Dextrose (Cipro In D5w 400 Mg/200 Ml) Confirm Administered Dose 200 mls @ as directed .ROUTE .STK-MED ONE Stop: 02/13/17 20:11 Last Admin: 02/13/17 20:23 Dose: Not Given Iopamidol (Isovue-370 (76%)) 100 ml IVPUSH ONETIME STA Stop: 02/13/17 17:24 Last Admin: 02/13/17 19:50 Dose: Not Given Morphine Sulfate (Morphine) 2 mg IV ONETIME ONE Stop: 02/13/17 16:55 Last Admin: 02/13/17 16:58 Dose: 2 mg Morphine Sulfate (Morphine) 2 mg IVPUSH Q2H PRN PRN Reason: Pain (severe 7-10) Stop: 02/14/17 19:59 Last Admin: 02/13/17 20:21 Dose: 2 mg Ondansetron HCl (Zofran) 8 mg IVPUSH ONETIME ONE Stop: 02/13/17 15:59 Last Admin: 02/13/17 16:58 Dose: 8 mg - Exam General: Alert, Oriented, Cooperative, No Acute Distress Lungs: Clear to Auscultation, Normal Respiratory Effort Cardiovascular: Regular Rate, Regular Rhythm GI/Abdominal Exam: Normal Bowel Sounds, Soft, No Organomegaly, No Distention, No Abnormal Bruit, No Mass, Pelvis Stable, Tender (LUQ) Extremities: Normal Inspection, Normal Range of Motion, Non-Tender, No Pedal Edema, Normal Capillary Refill Neurological: No New Focal Deficit Psy/Mental Status: Alert, Normal Affect, Normal Mood - Problem List & Annotations (1) Abdominal pain SNOMED Code(s): 87828610 Code(s): R10.9 - UNSPECIFIED ABDOMINAL PAIN Status: Acute Current Visit: Yes (2) Poor appetite SNOMED Code(s): 95780409 Code(s): R63.0 - ANOREXIA Status: Acute Current Visit: Yes (3) Diverticulitis SNOMED Code(s): 974203333 Code(s): K57.92 - DVTRCLI OF INTEST, PART UNSP, W/O PERF OR ABSCESS W/O BLEED Status: Suspected Current Visit: Yes (4) Metastatic renal cell carcinoma SNOMED Code(s): 902087500 Code(s): C64.9 - MALIGNANT NEOPLASM OF UNSP KIDNEY, EXCEPT RENAL PELVIS Status: Chronic Current Visit: Yes QualifierTitle: Laterality: left Qualified Code(s): C64.2 - Malignant neoplasm of left kidney, except renal pelvis (5) Renal cell cancer SNOMED Code(s): 585835642 Code(s): C64.9 - MALIGNANT NEOPLASM OF UNSP KIDNEY, EXCEPT RENAL PELVIS Status: Chronic Priority: High Current Visit: Yes QualifierTitle: Laterality: right Qualified Code(s): C64.1 - Malignant neoplasm of right kidney, except renal pelvis (6) Pulmonary embolism SNOMED Code(s): 01528481 Code(s): I26.99 - OTHER PULMONARY EMBOLISM WITHOUT ACUTE COR PULMONALE Status: Chronic Priority: High Current Visit: No QualifierTitle: Chronicity: chronic Acute cor pulmonale presence: without acute cor pulmonale (7) Pacemaker SNOMED Code(s): 352098553 Code(s): Z95.0 - PRESENCE OF CARDIAC PACEMAKER Status: Chronic Priority: High Current Visit: No Annotation/Comment:: Abnormal pacemaker pacing, resolved noted to be artifact - Problem List Review Problem List Initiated/Reviewed/Updated: Yes - My Orders Last 24 Hours: My Active Orders 02/14/17 10:50 Hemoccult [Fecal Occult Blood Collection] [RC] ASDIRECTED 02/14/17 11:22 Verify Patient Consent Obtain [RC] ASDIRECTED Transfuse Red Blood Cells [COMM] Routine 02/14/17 11:30 Megestrol [Megace 40 MG/ML Susp] 400 mg PO DAILY fentaNYL [Duragesic] 12 mcg TRDERM Q72H 02/14/17 11:38 Communication Order [RC] PRN 02/15/17 09:00 Docusate Sodium [Colace] 100 mg PO DAILY - Plan Plan:: This 76 year old male admitted with suspected diverticulitis, fever, with metastatic renal cancer and LUQ pain. 1. Abdominal pain: Improved today. Continue Flagyl and Ciprofloxacin for suspected diverticulitis. No longer febrile. BC negative. Pain likely due to new soft tissue masses in LUQ measuring 7.2 x 3.3 cm. I spoke with Dr. Lara, Oncologist regarding these new findings. He recommended currently to get pain under control and he will need to discuss with them switching treatments. Fentanyl 12 mcg transdermal patch. placed yesterday, pain is better controlled. Oxycodone helped with breakthrough pain. reports feeling nauseated from meds at times and bad taste in his mouth, likely from Flagyl. Zofran given with relief. 2. Poor appetite: Will start Megace today. 3. Anemia: Hgb 8.7 today. Monitor. Likely secondary to hematuria and IV hydration. Continue Eliquis due to hx PE (11/2016) and high risk for further VTE. 4. Hx PE: Continue Eliquis. 5. Possible UTI: No growth on UC. VTE prophylaxis: Eliquis. Dispo: 1-2 days pending improvement <Teofilo Velázquez - Last Filed: 02/15/17 14:10> - Patient Data Vitals - Most Recent: Last Vital Signs Temp 97.5 F 02/15/17 12:00 Pulse 61 02/15/17 12:00 Resp 20 02/15/17 12:00 BP 127/61 02/15/17 12:00 Pulse Ox 95 02/15/17 12:00 I&O - Last 24 Hours: Intake & Output 02/14/17 02/15/17 02/15/17 22:59 06:59 14:59 Intake Total 1006 450 Output Total 550 400 Balance 456 50 Lab Results Last 24 Hours: Laboratory Results - last 24 hr 02/14/17 02/15/17 02/15/17 Range/Units 11:40 05:02 05:02 WBC 8.36 (4.0-11.0) K/uL RBC 3.06 L (4.50-5.90) M/uL Hgb 8.7 L (13.0-17.0) g/dL Hct 26.8 L (38.0-50.0) % MCV 87.6 (80.0-98.0) fL MCH 28.4 (27.0-32.0) pg MCHC 32.5 (31.0-37.0) g/dL RDW Std Deviation 51.1 (28.0-62.0) fl RDW Coeff of Bambi 16 H (11.0-15.0) % Plt Count 124 L (150-400) K/uL MPV 8.90 (7.40-12.00) fL Neut % (Auto) 87.0 H (48.0-80.0) % Lymph % (Auto) 3.7 L (16.0-40.0) % Louisa % (Auto) 7.9 (0.0-15.0) % Eos % (Auto) 1.2 (0.0-7.0) % Baso % (Auto) 0.2 (0.0-1.5) % Neut # (Auto) 7.3 H (1.4-5.7) K/uL Lymph # (Auto) 0.3 L (0.6-2.4) K/uL Louisa # (Auto) 0.7 (0.0-0.8) K/uL Eos # (Auto) 0.1 (0.0-0.7) K/uL Baso # (Auto) 0.0 (0.0-0.1) K/uL Nucleated RBC % 0.0 /100WBC Nucleated RBCs # 0 K/uL Sodium 135 L (136-146) mmol/L Potassium 4.2 (3.5-5.1) mmol/L Chloride 106 (98-110) mmol/L Carbon Dioxide 21 (21-31) mmol/L BUN 18 (6.0-23.0) mg/dL Creatinine 1.0 (0.6-1.5) mg/dL Est Cr Clr Drug Dosing 61.95 mL/min Estimated GFR (MDRD) > 60.0 ml/min Glucose 100 (60-110) mg/dL Calcium 7.4 L (8.8-10.8) mg/dL Blood Type A POSITIVE Antibody Screen NEGATIVE Crossmatch See Detail 02/15/17 Range/Units 13:50 WBC (4.0-11.0) K/uL RBC (4.50-5.90) M/uL Hgb 8.8 L (13.0-17.0) g/dL Hct 27.1 L (38.0-50.0) % MCV (80.0-98.0) fL MCH (27.0-32.0) pg MCHC (31.0-37.0) g/dL RDW Std Deviation (28.0-62.0) fl RDW Coeff of Bambi (11.0-15.0) % Plt Count (150-400) K/uL MPV (7.40-12.00) fL Neut % (Auto) (48.0-80.0) % Lymph % (Auto) (16.0-40.0) % Louisa % (Auto) (0.0-15.0) % Eos % (Auto) (0.0-7.0) % Baso % (Auto) (0.0-1.5) % Neut # (Auto) (1.4-5.7) K/uL Lymph # (Auto) (0.6-2.4) K/uL Louisa # (Auto) (0.0-0.8) K/uL Eos # (Auto) (0.0-0.7) K/uL Baso # (Auto) (0.0-0.1) K/uL Nucleated RBC % /100WBC Nucleated RBCs # K/uL Sodium (136-146) mmol/L Potassium (3.5-5.1) mmol/L Chloride (98-110) mmol/L Carbon Dioxide (21-31) mmol/L BUN (6.0-23.0) mg/dL Creatinine (0.6-1.5) mg/dL Est Cr Clr Drug Dosing mL/min Estimated GFR (MDRD) ml/min Glucose (60-110) mg/dL Calcium (8.8-10.8) mg/dL Blood Type Antibody Screen Crossmatch Med Orders - Current: Current Medications Acetaminophen (Tylenol) 650 mg PO Q4H PRN PRN Reason: Pain (Mild 1-3)/fever Last Admin: 02/14/17 14:21 Dose: 650 mg Apixaban (Eliquis) 5 mg PO BID [facility] Last Admin: 02/15/17 08:34 Dose: 5 mg Bisacodyl (Dulcolax) 5 mg PO DAILY PRN PRN Reason: Constipation Docusate Sodium (Colace) 100 mg PO DAILY [facility] Last Admin: 02/15/17 08:34 Dose: 100 mg Fentanyl (Duragesic) 12 mcg TRDERM Q72H [facility] Last Admin: 02/14/17 12:10 Dose: 12 mcg Ciprofloxacin/Dextrose 400 mg/ (Premix) 200 mls @ 200 mls/hr IV Q12H [facility] Last Admin: 02/15/17 08:35 Dose: 200 mls/hr Metronidazole 500 mg/ Premix 100 mls @ 100 mls/hr IV QID [facility] Last Admin: 02/15/17 12:24 Dose: 100 mls/hr Megestrol Acetate (Megace 40 Mg/Ml Susp) 400 mg PO DAILY [facility] Last Admin: 02/15/17 08:33 Dose: 400 mg Metoprolol Succinate (Toprol Xl) 50 mg PO BID [facility] Last Admin: 02/15/17 08:35 Dose: 50 mg Ondansetron HCl (Zofran) 4 mg IVPUSH Q4H PRN PRN Reason: Nausea Last Admin: 02/15/17 08:40 Dose: 4 mg Oxycodone HCl (Oxycodone) 5 mg PO Q4H PRN PRN Reason: Pain (moderate 4-6) Last Admin: 02/15/17 00:40 Dose: 5 mg Discontinued Medications Docusate Sodium (Colace) 100 mg PO DAILY PRN PRN Reason: Constipation Sodium Chloride (Normal Saline) 1,000 mls @ 125 mls/hr IV STAT [facility] Last Admin: 02/14/17 03:11 Dose: 125 mls/hr Metronidazole 500 mg/ Premix 100 mls @ 100 mls/hr IV ONETIME ONE Stop: 02/13/17 19:48 Last Admin: 02/13/17 19:04 Dose: 100 mls/hr Ciprofloxacin/Dextrose 400 mg/ (Premix) 200 mls @ 200 mls/hr IV ONETIME ONE Stop: 02/13/17 20:01 Last Admin: 02/13/17 20:13 Dose: 200 mls/hr Ciprofloxacin/Dextrose (Cipro In D5w 400 Mg/200 Ml) Confirm Administered Dose 200 mls @ as directed .ROUTE .STK-MED ONE Stop: 02/13/17 20:11 Last Admin: 02/13/17 20:23 Dose: Not Given Iopamidol (Isovue-370 (76%)) 100 ml IVPUSH ONETIME STA Stop: 02/13/17 17:24 Last Admin: 02/13/17 19:50 Dose: Not Given Morphine Sulfate (Morphine) 2 mg IV ONETIME ONE Stop: 02/13/17 16:55 Last Admin: 02/13/17 16:58 Dose: 2 mg Morphine Sulfate (Morphine) 2 mg IVPUSH Q2H PRN PRN Reason: Pain (severe 7-10) Stop: 02/14/17 19:59 Last Admin: 02/13/17 20:21 Dose: 2 mg Ondansetron HCl (Zofran) 8 mg IVPUSH ONETIME ONE Stop: 02/13/17 15:59 Last Admin: 02/13/17 16:58 Dose: 8 mg
[2017-02-16] MEDS: metroNIDAZOLE/Normal Saline 500 MG in Premix Bag 1 BAG IV SCH ×2 (00:48→05:29)
[2017-02-16] MEDS: Ondansetron 4 MG/2 ML SDV IVPUSH PRN (00:48)
[2017-02-16 05:55] LABS: CHLORIDE,CL 104 mmol/L (98-110); SODIUM,NA 134 mmol/L (136-146)
[2017-02-16] MEDS: Ciprofloxacin in D5W 400 MG in Premix Bag 1 BAG IV SCH ×4 (08:00→20:31)
--- NOTE | 2017-02-16 08:09 | PCM.PN ---
- General Info Date of Service: 02/16/17 Admission Dx/Problem (Free Text): Admission Diagnosis/Problem Admission Diagnosis/Problem Fever Subjective Update: Continues to feel very nauseated and is not eating much. No chest pain or SOB. Feeling blah. Pain is 5/10 and hoping for it to be lower, 3/10 would be tolerable. Functional Status: Reports: Ambulating, Urinating. Denies: Pain Controlled, Tolerating Diet - Review of Systems Pulmonary: Reports: No Symptoms. Denies: Shortness of Breath, Cough, Sputum Cardiovascular: Reports: No Symptoms. Denies: Chest Pain, Edema Gastrointestinal: Reports: Abdominal Pain (LUQ), Flatus, Nausea, Vomiting Genitourinary: Reports: Hematuria. Denies: Dysuria, Frequency, Burning Skin: Reports: No Symptoms Neurological: Reports: No Symptoms. Denies: Confusion Psychiatric: Reports: No Symptoms. Denies: Confusion - Patient Data Vitals - Most Recent: Last Vital Signs Temp 98.6 F 02/16/17 04:00 Pulse 65 02/16/17 04:00 Resp 18 02/16/17 04:00 BP 115/57 L 02/16/17 04:00 Pulse Ox 96 02/16/17 04:00 Weight - Most Recent: 67.585 kg I&O - Last 24 Hours: Intake & Output 02/15/17 02/16/17 02/16/17 22:59 06:59 14:59 Intake Total 890 Output Total 525 Balance 365 Lab Results Last 24 Hours: Laboratory Results - last 24 hr 02/14/17 02/15/17 02/16/17 Range/Units 11:40 13:50 05:21 WBC 6.90 (4.0-11.0) K/uL RBC 3.41 L (4.50-5.90) M/uL Hgb 8.8 L 9.7 L (13.0-17.0) g/dL Hct 27.1 L 29.5 L (38.0-50.0) % MCV 86.5 (80.0-98.0) fL MCH 28.4 (27.0-32.0) pg MCHC 32.9 (31.0-37.0) g/dL RDW Std Deviation 49.1 (28.0-62.0) fl RDW Coeff of Bambi 16 H (11.0-15.0) % Plt Count 125 L (150-400) K/uL MPV 9.50 (7.40-12.00) fL Neut % (Auto) 86.3 H (48.0-80.0) % Lymph % (Auto) 4.5 L (16.0-40.0) % [place] % (Auto) 7.5 (0.0-15.0) % Eos % (Auto) 1.6 (0.0-7.0) % Baso % (Auto) 0.1 (0.0-1.5) % Neut # (Auto) 6.0 H (1.4-5.7) K/uL Lymph # (Auto) 0.3 L (0.6-2.4) K/uL [place] # (Auto) 0.5 (0.0-0.8) K/uL Eos # (Auto) 0.1 (0.0-0.7) K/uL Baso # (Auto) 0.0 (0.0-0.1) K/uL Nucleated RBC % 0.0 /100WBC Nucleated RBCs # 0 K/uL Sodium (136-146) mmol/L Potassium (3.5-5.1) mmol/L Chloride (98-110) mmol/L Carbon Dioxide (21-31) mmol/L BUN (6.0-23.0) mg/dL Creatinine (0.6-1.5) mg/dL Est Cr Clr Drug Dosing mL/min Estimated GFR (MDRD) ml/min Glucose (60-110) mg/dL Calcium (8.8-10.8) mg/dL Blood Type A POSITIVE Antibody Screen NEGATIVE Crossmatch See Detail 02/16/17 Range/Units 05:21 WBC (4.0-11.0) K/uL RBC (4.50-5.90) M/uL Hgb (13.0-17.0) g/dL Hct (38.0-50.0) % MCV (80.0-98.0) fL MCH (27.0-32.0) pg MCHC (31.0-37.0) g/dL RDW Std Deviation (28.0-62.0) fl RDW Coeff of Bambi (11.0-15.0) % Plt Count (150-400) K/uL MPV (7.40-12.00) fL Neut % (Auto) (48.0-80.0) % Lymph % (Auto) (16.0-40.0) % [place] % (Auto) (0.0-15.0) % Eos % (Auto) (0.0-7.0) % Baso % (Auto) (0.0-1.5) % Neut # (Auto) (1.4-5.7) K/uL Lymph # (Auto) (0.6-2.4) K/uL [place] # (Auto) (0.0-0.8) K/uL Eos # (Auto) (0.0-0.7) K/uL Baso # (Auto) (0.0-0.1) K/uL Nucleated RBC % /100WBC Nucleated RBCs # K/uL Sodium 134 L (136-146) mmol/L Potassium 4.1 (3.5-5.1) mmol/L Chloride 104 (98-110) mmol/L Carbon Dioxide 21 (21-31) mmol/L BUN 18 (6.0-23.0) mg/dL Creatinine 1.0 (0.6-1.5) mg/dL Est Cr Clr Drug Dosing 61.95 mL/min Estimated GFR (MDRD) > 60.0 ml/min Glucose 95 (60-110) mg/dL Calcium 7.6 L (8.8-10.8) mg/dL Blood Type Antibody Screen Crossmatch Med Orders - Current: Current Medications Acetaminophen (Tylenol) 650 mg PO Q4H PRN PRN Reason: Pain (Mild 1-3)/fever Last Admin: 02/14/17 14:21 Dose: 650 mg Apixaban (Eliquis) 5 mg PO BID [facility] Last Admin: 02/15/17 20:09 Dose: 5 mg Bisacodyl (Dulcolax) 5 mg PO DAILY PRN PRN Reason: Constipation Docusate Sodium (Colace) 100 mg PO DAILY [facility] Last Admin: 02/15/17 08:34 Dose: 100 mg Fentanyl (Duragesic) 12 mcg TRDERM Q72H [facility] Last Admin: 02/14/17 12:10 Dose: 12 mcg Ciprofloxacin/Dextrose 400 mg/ (Premix) 200 mls @ 200 mls/hr IV Q12H [facility] Last Admin: 02/16/17 08:00 Dose: 200 mls/hr Metronidazole 500 mg/ Premix 100 mls @ 100 mls/hr IV QID [facility] Last Admin: 02/16/17 05:29 Dose: 100 mls/hr Megestrol Acetate (Megace 40 Mg/Ml Susp) 400 mg PO DAILY [facility] Last Admin: 02/15/17 08:33 Dose: 400 mg Metoprolol Succinate (Toprol Xl) 50 mg PO BID [facility] Last Admin: 02/15/17 20:09 Dose: 50 mg Ondansetron HCl (Zofran) 4 mg IVPUSH Q4H PRN PRN Reason: Nausea Last Admin: 02/16/17 00:48 Dose: 4 mg Oxycodone HCl (Oxycodone) 5 mg PO Q4H PRN PRN Reason: Pain (moderate 4-6) Last Admin: 02/15/17 18:59 Dose: 5 mg Discontinued Medications Docusate Sodium (Colace) 100 mg PO DAILY PRN PRN Reason: Constipation Sodium Chloride (Normal Saline) 1,000 mls @ 125 mls/hr IV STAT [facility] Last Admin: 02/14/17 03:11 Dose: 125 mls/hr Metronidazole 500 mg/ Premix 100 mls @ 100 mls/hr IV ONETIME ONE Stop: 02/13/17 19:48 Last Admin: 02/13/17 19:04 Dose: 100 mls/hr Ciprofloxacin/Dextrose 400 mg/ (Premix) 200 mls @ 200 mls/hr IV ONETIME ONE Stop: 02/13/17 20:01 Last Admin: 02/13/17 20:13 Dose: 200 mls/hr Ciprofloxacin/Dextrose (Cipro In D5w 400 Mg/200 Ml) Confirm Administered Dose 200 mls @ as directed .ROUTE .STK-MED ONE Stop: 02/13/17 20:11 Last Admin: 02/13/17 20:23 Dose: Not Given Iopamidol (Isovue-370 (76%)) 100 ml IVPUSH ONETIME STA Stop: 02/13/17 17:24 Last Admin: 02/13/17 19:50 Dose: Not Given Morphine Sulfate (Morphine) 2 mg IV ONETIME ONE Stop: 02/13/17 16:55 Last Admin: 02/13/17 16:58 Dose: 2 mg Morphine Sulfate (Morphine) 2 mg IVPUSH Q2H PRN PRN Reason: Pain (severe 7-10) Stop: 02/14/17 19:59 Last Admin: 02/13/17 20:21 Dose: 2 mg Ondansetron HCl (Zofran) 8 mg IVPUSH ONETIME ONE Stop: 02/13/17 15:59 Last Admin: 02/13/17 16:58 Dose: 8 mg - Exam General: Alert, Oriented, Cooperative, No Acute Distress Lungs: Clear to Auscultation, Normal Respiratory Effort Cardiovascular: Regular Rate, Regular Rhythm, No Murmurs GI/Abdominal Exam: Normal Bowel Sounds, Soft, No Organomegaly, No Distention, No Abnormal Bruit, No Mass, Pelvis Stable, Tender (LUQ ) Extremities: Normal Inspection, Normal Range of Motion, Non-Tender, No Pedal Edema, Normal Capillary Refill Neurological: No New Focal Deficit Psy/Mental Status: Alert, Normal Affect, Normal Mood - Problem List & Annotations (1) Abdominal pain SNOMED Code(s): 48772890 Code(s): R10.9 - UNSPECIFIED ABDOMINAL PAIN Status: Acute Current Visit: Yes (2) Poor appetite SNOMED Code(s): 92382602 Code(s): R63.0 - ANOREXIA Status: Acute Current Visit: Yes (3) Metastatic renal cell carcinoma SNOMED Code(s): 811520583 Code(s): C64.9 - MALIGNANT NEOPLASM OF UNSP KIDNEY, EXCEPT RENAL PELVIS Status: Chronic Current Visit: Yes Qualifiers: Laterality: left Qualified Code(s): C64.2 - Malignant neoplasm of left kidney, except renal pelvis (4) Renal cell cancer SNOMED Code(s): 361971255 Code(s): C64.9 - MALIGNANT NEOPLASM OF UNSP KIDNEY, EXCEPT RENAL PELVIS Status: Chronic Priority: High Current Visit: Yes Qualifiers: Laterality: right Qualified Code(s): C64.1 - Malignant neoplasm of right kidney, except renal pelvis (5) Pulmonary embolism SNOMED Code(s): 23195481 Code(s): I26.99 - OTHER PULMONARY EMBOLISM WITHOUT ACUTE COR PULMONALE Status: Chronic Priority: High Current Visit: No Qualifiers: Chronicity: chronic Acute cor pulmonale presence: without acute cor pulmonale (6) Pacemaker SNOMED Code(s): 634808998 Code(s): Z95.0 - PRESENCE OF CARDIAC PACEMAKER Status: Chronic Priority: High Current Visit: No Annotation/Comment:: Abnormal pacemaker pacing, resolved noted to be artifact - Problem List Review Problem List Initiated/Reviewed/Updated: Yes - My Orders Last 24 Hours: My Active Orders 02/15/17 09:00 Docusate Sodium [Colace] 100 mg PO DAILY 02/15/17 14:05 Transfuse Red Blood Cells [COMM] Routine - Plan Plan:: This 76 year old male admitted with suspected diverticulitis, fever, with metastatic renal cancer and LUQ pain. 1. Abdominal pain: Pain remains 5/10 today, will increase Fentanyl patch to 25 mcg. Patient very nauseated still, reports this started when he came here, likely from Flagyl. Discussed with Dr. Velázquez, will stop Flagyl and Cipro. No evidence of diverticulitis and patient not eating well. No longer febrile. BC negative. Pain likely due to new soft tissue masses in LUQ measuring 7.[address] Lara, Oncologist to visit with patient today. 2. Poor appetite: Not improving. Megace started. WIll also start Remeron tonight. Will stop Flagyl today and monitor. Hoping appetite will improve with this. 3. Anemia: Hgb 9.7 today. Given 1 unit blood last night, due to hematuria. Continue Eliquis due to recent hx of PEs. 4. Hx PE: Continue Eliquis. VTE prophylaxis: Eliquis. Dispo: 1-2 days pending improvement
[2017-02-16] MEDS ORDERED: fentaNYL 25 MCG/HR Transdermal Patch TRDERM SCH (08:45)
[2017-02-16] MEDS: Megestrol Susp 40 MG/ML 10 ML UD Cup PO SCH (08:56)
[2017-02-16] MEDS: Docusate Sodium 100 MG Cap PO SCH (08:56)
[2017-02-16] MEDS: Apixaban 5 MG Tab PO SCH ×2 (08:57→21:32)
[2017-02-16] MEDS: Metoprolol Succinate 50 MG Tab.ER PO SCH ×2 (08:59→21:33)
[2017-02-16] MEDS ORDERED: Magnesium Sulfate/Water 2 GM in Premix Bag 1 BAG IV ONE (20:24)
[2017-02-16] MEDS ORDERED: Mirtazapine 15 MG Tab PO SCH (21:00)
[2017-02-16] MEDS: oxyCODONE 5 MG Tab PO PRN (21:32)
[2017-02-17 06:03] LABS: CHLORIDE,CL 106 mmol/L (98-110); SODIUM,NA 135 mmol/L (136-146)
[2017-02-17] MEDS: Apixaban 5 MG Tab PO SCH (09:20)
[2017-02-17] MEDS: Docusate Sodium 100 MG Cap PO SCH (09:20)
[2017-02-17] MEDS: Ciprofloxacin in D5W 400 MG in Premix Bag 1 BAG IV SCH ×2 (09:20)
[2017-02-17] MEDS: Metoprolol Succinate 50 MG Tab.ER PO SCH (09:26)
[2017-02-17 10:34] VITALS: BP 139/70
[2017-02-17] MEDS ORDERED: Ferrous Sulfate Liq 300 MG/5 ML Cup PO SCH (11:45)
[2017-02-17] MEDS ORDERED: Docusate Sodium 100 MG Cap PO SCH (21:00)
--- NOTE | 2017-02-17 23:23 | PCM.DCSUM1 ---
Discharge Summary - Hospital Course Free Text/Narrative:: abdominal pain HPI Initial Comments: 76 yo male with pmh of metastatic renal cancer who is on Obdivo and receiving palliative xrt. He presents with several day history of left sided abdominal pain. He reports mild fever but denies any diarrhea, cough, or shortness of breath. CT scan of abdomen performed in ED reported intiltrative lesion occupying most of the right kidney, enhancing tumor thrombus present within the right renal vein extending into the IVC, multible small nodules in posterior lower lobes bilaterally, lytic lesion in the right posterior iliac bone and new nodular soft tissue masses present i nthe left upper quadrant omentum measuring 7.2 by 3.3 cm. abdomen Pain Score (Numeric/FACES): 7 - Discharge Data Discharge Date: 02/17/17 Discharge Disposition: Home, Self-Care 01 Condition: Fair - Discharge Diagnosis/Problem(s) (1) UTI (urinary tract infection) SNOMED Code(s): 47721112 ICD Code: N39.0 - URINARY TRACT INFECTION, SITE NOT SPECIFIED Status: Acute (2) Abdominal pain SNOMED Code(s): 48253596 ICD Code: R10.9 - UNSPECIFIED ABDOMINAL PAIN Status: Acute (3) Gross hematuria SNOMED Code(s): 137235771 ICD Code: R31.0 - GROSS HEMATURIA Status: Acute (4) Anemia due to blood loss SNOMED Code(s): 033817938 ICD Code: D50.0 - IRON DEFICIENCY ANEMIA SECONDARY TO BLOOD LOSS (CHRONIC) Status: Acute - Patient Summary/Data Consults: Oncology consult Dr. Lara Recommended Follow-up Testing/Procedures: Recommended follow up with Urology for hematuria Hospital Course: Patient 76 years old man with PMHx of metastatic renal cancer presented to hospital with LLQ pain. He was started initially on metronidazole and flagyl and treated for diverticulitis. Ct and and pelvis showed large mass LLQ and multiple metastases in the lungs. He has a large mass Rt kidney and gross hematuria . Hemoglobin dropped at 7 and patient was transfused 2 units PRBC . Over the next 2 days , Hb was stable. Patient pain medications were adjusted and he was continued with Ciprofloxacin few more days for UTI as his CT scan did not show diverticulitis. Patient pain improved and he was stable for discharge to continue with Urology for gross hematuria and with Oncology for the cancer treatment as outpatient - Patient Instructions Diet: Heart Healthy Diet Activity: As Tolerated Showering/Bathing: May Shower - Discharge Plan Prescriptions/Med Rec: Bisacodyl [Dulcolax] 5 mg PO DAILY PRN #30 tablet PRN Reason: Constipation Docusate Sodium [Colace] 100 mg PO BID #60 cap fentaNYL [Duragesic] 25 mcg TRDERM Q72H #20 patch Ferrous Sulfate 300 mg PO BID #1 cup Mirtazapine [Remeron] 15 mg PO BEDTIME #60 tablet Home Medications: Home Meds Metoprolol Succinate [Toprol XL] 50 mg PO BID 08/16/16 [History] Apixaban [Eliquis] 1 tab PO BID 01/08/17 [History] Metoclopramide [Reglan] 10 mg PO QID PRN 01/08/17 [History] Nivolumab [Opdivo] 40 mg IV ASDIRECTED 01/08/17 [History] oxyCODONE 1 tab PO Q4HR PRN 01/08/17 [History] Bisacodyl [Dulcolax] 5 mg PO DAILY PRN #30 tablet 02/17/17 [Rx] Docusate Sodium [Colace] 100 mg PO BID #60 cap 02/17/17 [Rx] Ferrous Sulfate 300 mg PO BID #1 cup 02/17/17 [Rx] Mirtazapine [Remeron] 15 mg PO BEDTIME #60 tablet 02/17/17 [Rx] fentaNYL [Duragesic] 25 mcg TRDERM Q72H #20 patch 02/17/17 [Rx] Patient Handouts: Docusate Sodium; Senna tablets or capsules, Bisacodyl tablets and capsules, Iron tablets, capsules, extended-release tablets, Urinary Tract Infection, Adult, [id number], Mirtazapine tablets, Abdominal Pain, Adult , [id number], fentanyl skin patch, Hematuria, Adult Referrals: Ilir Olmstead MD [Physician] - Booker Xie MD [Physician] - - Discharge Summary/Plan Comment DC Time >30 min.: Yes - General Info Date of Service: 02/17/17 Admission Dx/Problem (Free Text: Admission Diagnosis/Problem Admission Diagnosis/Problem Fever Subjective Update: Patient is feeling better today , pain better controlled , hb stable . - Review of Systems General: Reports: Weakness HEENT: Reports: No Symptoms Pulmonary: Reports: Shortness of Breath Cardiovascular: Reports: No Symptoms Gastrointestinal: Reports: Abdominal Pain Genitourinary: Reports: Hematuria Skin: Reports: No Symptoms Neurological: Reports: No Symptoms Psychiatric: Reports: No Symptoms - Patient Data Vitals - Most Recent: Last Vital Signs Temp 98.5 F 02/17/17 08:00 Pulse 77 02/17/17 09:26 Resp 16 02/17/17 08:00 BP 101/68 02/17/17 09:26 Pulse Ox 91 L 02/17/17 08:00 Weight - Most Recent: 149 lb I&O - Last 24 hours: Intake & Output 02/17/17 02/17/17 02/18/17 14:59 22:59 06:59 Intake Total 200 Balance 200 Lab Results - Last 24 hrs: Laboratory Results - last 24 hr 02/17/17 02/17/17 Range/Units 05:33 05:33 WBC 6.63 (4.0-11.0) K/uL RBC 3.59 L (4.50-5.90) M/uL Hgb 10.3 L (13.0-17.0) g/dL Hct 31.3 L (38.0-50.0) % MCV 87.2 (80.0-98.0) fL MCH 28.7 (27.0-32.0) pg MCHC 32.9 (31.0-37.0) g/dL RDW Std Deviation 49.6 (28.0-62.0) fl RDW Coeff of Bambi 16 H (11.0-15.0) % Plt Count 166 (150-400) K/uL MPV 9.60 (7.40-12.00) fL Neut % (Auto) 84.0 H (48.0-80.0) % Lymph % (Auto) 6.5 L (16.0-40.0) % [place] % (Auto) 7.5 (0.0-15.0) % Eos % (Auto) 1.7 (0.0-7.0) % Baso % (Auto) 0.3 (0.0-1.5) % Neut # (Auto) 5.6 (1.4-5.7) K/uL Lymph # (Auto) 0.4 L (0.6-2.4) K/uL [place] # (Auto) 0.5 (0.0-0.8) K/uL Eos # (Auto) 0.1 (0.0-0.7) K/uL Baso # (Auto) 0.0 (0.0-0.1) K/uL Nucleated RBC % 0.0 /100WBC Nucleated RBCs # 0 K/uL Sodium 135 L (136-146) mmol/L Potassium 4.2 (3.5-5.1) mmol/L Chloride 106 (98-110) mmol/L Carbon Dioxide 21 (21-31) mmol/L BUN 18 (6.0-23.0) mg/dL Creatinine 1.1 (0.6-1.5) mg/dL Est Cr Clr Drug Dosing 56.32 mL/min Estimated GFR (MDRD) > 60.0 ml/min Glucose 103 (60-110) mg/dL Calcium 7.8 L (8.8-10.8) mg/dL Phosphorus 3.4 (2.4-4.7) mg/dL Magnesium 1.7 (1.5-2.3) mEq/L Med Orders - Current: Current Medications Discontinued Medications Acetaminophen (Tylenol) 650 mg PO Q4H PRN PRN Reason: Pain (Mild 1-3)/fever Last Admin: 02/14/17 14:21 Dose: 650 mg Apixaban (Eliquis) 5 mg PO BID [facility] Last Admin: 02/17/17 09:20 Dose: 5 mg Bisacodyl (Dulcolax) 5 mg PO DAILY PRN PRN Reason: Constipation Docusate Sodium (Colace) 100 mg PO DAILY PRN PRN Reason: Constipation Docusate Sodium (Colace) 100 mg PO DAILY [facility] Last Admin: 02/17/17 09:20 Dose: 100 mg Docusate Sodium (Colace) 100 mg PO BID [facility] Fentanyl (Duragesic) 12 mcg TRDERM Q72H [facility] Last Admin: 02/14/17 12:10 Dose: 12 mcg Fentanyl (Duragesic) 25 mcg TRDERM Q72H [facility] Last Admin: 02/16/17 08:57 Dose: 25 mcg Ferrous Sulfate (Ferrous Sulfate) 300 mg PO BID [facility] Last Admin: 02/17/17 12:03 Dose: 300 mg Sodium Chloride (Normal Saline) 1,000 mls @ 125 mls/hr IV STAT [facility] Last Admin: 02/14/17 03:11 Dose: 125 mls/hr Metronidazole 500 mg/ Premix 100 mls @ 100 mls/hr IV ONETIME ONE Stop: 02/13/17 19:48 Last Admin: 02/13/17 19:04 Dose: 100 mls/hr Ciprofloxacin/Dextrose 400 mg/ (Premix) 200 mls @ 200 mls/hr IV ONETIME ONE Stop: 02/13/17 20:01 Last Admin: 02/13/17 20:13 Dose: 200 mls/hr Ciprofloxacin/Dextrose 400 mg/ (Premix) 200 mls @ 200 mls/hr IV Q12H [facility] Last Admin: 02/16/17 08:00 Dose: 200 mls/hr Metronidazole 500 mg/ Premix 100 mls @ 100 mls/hr IV QID [facility] Last Admin: 02/16/17 05:29 Dose: 100 mls/hr Ciprofloxacin/Dextrose (Cipro In D5w 400 Mg/200 Ml) Confirm Administered Dose 200 mls @ as directed .ROUTE .STK-MED ONE Stop: 02/13/17 20:11 Last Admin: 02/13/17 20:23 Dose: Not Given Ciprofloxacin/Dextrose 400 mg/ (Premix) 200 mls @ 200 mls/hr IV Q12H [facility] Last Admin: 02/17/17 09:20 Dose: 200 mls/hr Magnesium Sulfate 2 gm/ Premix 50 mls @ 50 mls/hr IV ONETIME ONE Stop: 02/16/17 21:23 Last Admin: 02/16/17 22:43 Dose: 50 mls/hr Iopamidol (Isovue-370 (76%)) 100 ml IVPUSH ONETIME STA Stop: 02/13/17 17:24 Last Admin: 02/13/17 19:50 Dose: Not Given Megestrol Acetate (Megace 40 Mg/Ml Susp) 400 mg PO DAILY [facility] Last Admin: 02/16/17 08:56 Dose: 400 mg Metoprolol Succinate (Toprol Xl) 50 mg PO BID [facility] Last Admin: 02/17/17 09:26 Dose: 50 mg Mirtazapine (Remeron) 15 mg PO BEDTIME [facility] Last Admin: 02/16/17 21:32 Dose: 15 mg Morphine Sulfate (Morphine) 2 mg IV ONETIME ONE Stop: 02/13/17 16:55 Last Admin: 02/13/17 16:58 Dose: 2 mg Morphine Sulfate (Morphine) 2 mg IVPUSH Q2H PRN PRN Reason: Pain (severe 7-10) Stop: 02/14/17 19:59 Last Admin: 02/13/17 20:21 Dose: 2 mg Ondansetron HCl (Zofran) 8 mg IVPUSH ONETIME ONE Stop: 02/13/17 15:59 Last Admin: 02/13/17 16:58 Dose: 8 mg Ondansetron HCl (Zofran) 4 mg IVPUSH Q4H PRN PRN Reason: Nausea Last Admin: 02/16/17 00:48 Dose: 4 mg Oxycodone HCl (Oxycodone) 5 mg PO Q4H PRN PRN Reason: Pain (moderate 4-6) Last Admin: 02/16/17 21:32 Dose: 5 mg - Exam General: Reports: Alert, Oriented HEENT: Reports: Pupils Equal, Pupils Reactive Neck: Reports: Supple, Trachea Midline, No JVD Lungs: Reports: Clear to Auscultation, Normal Respiratory Effort Cardiovascular: Reports: Regular Rate, Regular Rhythm GI/Abdominal Exam: Soft, Tender (RUQ) Skin: Reports: Warm, Dry, Intact Neurological: Reports: No New Focal Deficit *Q Meaningful Use (DIS) - VTE *Q VTE Criteria *Q: - Stroke *Q Stroke Criteria *Q: - AMI *Q AMI Criteria *Q:
== END 2017-02-17 15:00 | disposition home or self-care (01) | DRG 689 ==
LOC: MW.ED 15:33 → MW.MS 19:00
PROVIDERS: ADMIT Internal Medicine; ATTEND Internal Medicine
PROC: 30233N1 Transfusion of Nonautologous Red Blood Cells into Peripheral Vein, Percutaneous Approach (ICD-10-PCS; principal; 2017-02-15)
DX: N39.0 Urinary tract infection, site not specified (principal); I26.99 Other pulmonary embolism without acute cor pulmonale; C64.1 Malignant neoplasm of right kidney, except renal pelvis; C64.2 Malignant neoplasm of left kidney, except renal pelvis; C78.02 Secondary malignant neoplasm of left lung; C78.01 Secondary malignant neoplasm of right lung; C79.51 Secondary malignant neoplasm of bone; K57.32 Diverticulitis of large intestine without perforation or abscess without bleeding; R10.32 Left lower quadrant pain; R11.0 Nausea; R63.0 Anorexia; R31.0 Gross hematuria; D50.0 Iron deficiency anemia secondary to blood loss (chronic); E78.00 Pure hypercholesterolemia, unspecified; I10 Essential (primary) hypertension; Z51.5 Encounter for palliative care; Z79.899 Other long term (current) drug therapy; Z86.718 Personal history of other venous thrombosis and embolism; Z95.0 Presence of cardiac pacemaker
CPT/HCPCS: 36415; 36430; 71010; 74177; 80053; 81001; 82150; 83690; 84484; 85025; 87040 ×2; 87086; 96361; 96375; 99285; J2270; J2405; J7040; 80048; 83735; 84100; 85014; 85018; 86850; 86900; 86901; 86920; 86921; 86922; 93005; 96365; 96374; A9270-GY; J0744; J3475; P9016

== ENCOUNTER 2017-03-14 09:49 | Observation (INO) | payer MEDICARE, OTHER ==
--- NOTE | 2017-03-14 10:05 | EDM.PDOC ---
ED HPI GENERAL MEDICAL PROBLEM - General Stated Complaint: LOSS OF APPETITE Time Seen by Provider: 03/14/17 10:04 Source of Information: Reports: Patient History Limitations: Reports: No Limitations - History of Present Illness INITIAL COMMENTS - FREE TEXT/NARRATIVE: HISTORY AND PHYSICAL: History of present illness: Patient is a 80-year-old male who presents to the emergency room with complaints of general fatigue, nausea, generalized abdominal pain x 3 days. Has a history of metastatic renal cancer and has had multiple cancer treatments which have failed. Tonight he is supposed to start his first round of chemotherapy. The called oncology to talk to the nurse and told her of his symptoms, we recommended he be evaluated for electrolyte imbalance. Patient was seen last week in [place] due to anemia, states that he was losing blood/leaking from his kidney. She reports that they did a procedure to close the leak. Was seen in the cancer center on Tuesday for similar symptoms and received IV fluid and Zofran. No lab work was done at that time. Patient has a past medical history of metastatic renal carcinoma which has moved into the lungs and bones. History of DVT, PE, hypertension, elevated cholesterol, pacemaker. He does have a port which she receives chemotherapy. Chemotherapy was last received on Review of systems: As per history of present illness and below otherwise all systems reviewed and negative. Past medical history: As per history of present illness and as reviewed below otherwise noncontributory. Surgical history: As per history of present illness and as reviewed below otherwise noncontributory. Social history: No reported history of drug or alcohol abuse. Family history: As per history of present illness and as reviewed below otherwise noncontributory. Physical exam: Gen.: Well-developed and well-nourished 76-year-old male. Chronically ill appearing but alert and oriented. Appears in no acute distress. HEENT: Atraumatic, normocephalic, pupils reactive, negative for conjunctival pallor or scleral icterus, mucous membranes moist, throat clear, neck supple, nontender, trachea midline. Lungs: Clear to auscultation, breath sounds equal bilaterally, chest nontender. Heart: S1S2, regular rate and rhythm Abdomen: Soft, nondistended, diffuse abdominal tenderness with palpation. Negative for masses or hepatosplenomegaly. Negative for costovertebral tenderness. Pelvis: Stable nontender. Genitourinary: Deferred. Rectal: Deferred. Extremities: Atraumatic, moves all extremities per self, full range of motion, negative for cords or calf pain. Neurovascular unremarkable. Skin: Warm, dry, intact. Patient appears pale. No lesions, rashes or open sores noted. Neuro: Awake, alert, oriented. Cranial nerves II through XII unremarkable. Cerebellum unremarkable. Motor and sensory unremarkable throughout. Exam nonfocal. An oncology nurses here to access the patient's port and draw blood. Patient is receiving IV fluids and Zofran. Vital signs continued to remain stable. Labs were reviewed by me. Low sodium, hemaglobin and magnesium - along with some other electrolyte abnormalities. These were shared with Dr. Albrecht. Dr. Albrecht was consulted on this patient. Will admit to observation for fluids. Diagnostics: CBC, CMP, troponin, EKG, one view chest x-ray Therapeutics: IV fluid, Zofran Impression: History of metastatic renal carcinoma Plan: Hyponatremia Anemia Weakness Definitive disposition and diagnosis as appropriate pending reevaluation and review of above. Duration: Day(s): (3) Location: Reports: Abdomen, Generalized stomach Pain Score (Numeric/FACES): 7 - Related Data Allergies Allergy/AdvReac Type Severity Reaction Status Date / Time No Known Allergies Allergy Verified 03/14/17 10:06 Home Meds: Home Meds Apixaban [Eliquis] 1 tab PO BID 01/08/17 [History] oxyCODONE 5 mg PO Q6HR PRN 01/08/17 [History] Docusate Sodium [Colace] 100 mg PO BID #60 cap 02/17/17 [Rx] fentaNYL [Duragesic] 25 mcg TRDERM Q72H #20 patch 02/17/17 [Rx] Dexamethasone 4 mg PO DAILY 03/14/17 [History] Dronabinol [Marinol] 2.5 mg PO BIDAC 03/14/17 [History] Metoprolol Tartrate 50 mg PO BIDMEALS 03/14/17 [History] Polyethylene Glycol 3350 [MiraLAX] 17 gm PO Q8H PRN 03/14/17 [History] Past Medical History HEENT History: Reports: Impaired Vision Other HEENT History: uses reading glasses Cardiovascular History: Reports: Blood Clots/VTE/DVT, High Cholesterol, Hypertension, Pacemaker Respiratory History: Reports: None Gastrointestinal History: Reports: Diverticulosis Genitourinary History: Reports: None Other Genitourinary History: 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 , in need of port for chemo Musculoskeletal History: Reports: Other (See Below) Other Musculoskeletal History: hip pain Neurological History: Reports: Other (See Below) Other Neuro History: hx of motion sickness Psychiatric History: Reports: None Endocrine/Metabolic History: Reports: None Hematologic History: Reports: None Immunologic History: Reports: None Oncologic (Cancer) History: Reports: Renal Other Oncologic History: current Dermatologic History: Reports: None - Infectious Disease History Infectious Disease History: Reports: Measles, Mumps - Past Surgical History Head Surgeries/Procedures: Reports: None HEENT Surgical History: Reports: None Other Cardiovascular Surgeries/Procedures: pacemaker placement Social & Family History - Family History Family Medical History: Noncontributory - Tobacco Use Smoking Status *Q: Never Smoker Second Hand Smoke Exposure: No - Caffeine Use Caffeine Use: Reports: Tea, Other Other Caffeine Use: gatorade - Alcohol Use Days Per Week of Alcohol Use: 0 - Recreational Drug Use Recreational Drug Use: No Drug Use in Last 12 Months: No ED ROS GENERAL - Review of Systems Review Of Systems: ROS reveals no pertinent complaints other than HPI. ED EXAM, GENERAL - Physical Exam Exam: See Below (See dictation) Course - Vital Signs Last Recorded V/S: Last Vital Signs Temp 97.4 F 03/14/17 10:06 Pulse 78 03/14/17 10:06 Resp 18 03/14/17 10:06 BP 136/89 03/14/17 10:06 Pulse Ox 93 L 03/14/17 10:06 - Orders/Labs/Meds Orders: Active Orders 24 hr Category Date Time Status Admission Status [Patient Status] [ADT] Stat ADT 03/14/17 12:16 Ordered EKG Documentation Completion [RC] STAT Care 03/14/17 10:09 Active Sodium Chloride 0.9% [Normal Saline] 1,000 ml Med 03/14/17 10:09 Active IV STAT Medication Orders Sodium Chloride (Normal Saline) 1,000 mls @ 200 mls/hr IV STAT ONE Stop: 03/14/17 15:08 Last Admin: 03/14/17 11:15 Dose: 200 mls/hr Labs: Laboratory Tests 03/14/17 03/14/17 Range/Units 10:38 10:38 WBC 11.49 H (4.0-11.0) K/uL RBC 3.26 L (4.50-5.90) M/uL Hgb 8.7 L (13.0-17.0) g/dL Hct 26.9 L (38.0-50.0) % MCV 82.5 (80.0-98.0) fL MCH 26.7 L (27.0-32.0) pg MCHC 32.3 (31.0-37.0) g/dL RDW Std Deviation 49.0 (28.0-62.0) fl RDW Coeff of Bambi 16 H (11.0-15.0) % Plt Count 196 (150-400) K/uL MPV 10.20 (7.40-12.00) fL Add Manual Diff YES Neutrophils % (Manual) 92 H (48.0-80.0) % Band Neutrophils % 1 % Lymphocytes % (Manual) 3 L (16.0-40.0) % Monocytes % (Manual) 4 (0.0-15.0) % Nucleated RBC % 0.0 /100WBC Absolute Seg Neuts 10.6 H (1.4-5.7) Band Neutrophils # 0.1 Lymphocytes # (Manual) 0.3 L (0.6-2.4) Monocytes # (Manual) 0.5 (0.0-0.8) Nucleated RBCs # 0 K/uL Sodium 131 L (136-146) mmol/L Potassium 4.2 (3.5-5.1) mmol/L Chloride 100 (98-110) mmol/L Carbon Dioxide 22 (21-31) mmol/L BUN 21 (6.0-23.0) mg/dL Creatinine 1.0 (0.6-1.5) mg/dL Est Cr Clr Drug Dosing 61.95 mL/min Estimated GFR (MDRD) > 60.0 ml/min Glucose 130 H (60-110) mg/dL Calcium 8.3 L (8.8-10.8) mg/dL Magnesium 1.3 L (1.5-2.3) mEq/L Total Bilirubin 1.9 H (0.1-1.5) mg/dL AST 27 (5-40) IU/L ALT 97 H (8-54) IU/L Alkaline Phosphatase 246 H (40-150) Troponin I < 0.10 (0.0-0.29) NG/ML Total Protein 5.4 L (6.0-8.0) g/dL Albumin 2.6 L (3.4-4.8) g/dL Globulin 2.8 (2.0-3.5) g/dL Albumin/Globulin Ratio 0.9 L (1.3-2.8) Meds: Medications Generic Name Dose Route Start Last Admin Trade Name Freq PRN Reason Stop Dose Admin Sodium Chloride 1,000 mls @ 200 mls/hr 03/14/17 10:09 03/14/17 11:15 Normal Saline IV 03/14/17 15:08 200 mls/hr STAT ONE Administration Discontinued Medications Generic Name Dose Route Start Last Admin Trade Name Freq PRN Reason Stop Dose Admin Ondansetron HCl 4 mg 03/14/17 10:09 03/14/17 11:15 Zofran IVPUSH 03/14/17 10:10 4 mg ONETIME ONE Administration Departure - Departure Time of Disposition: 12:22 Disposition: Refer to Observation Clinical Impression: Hyponatremia - Discharge Information Referrals: Booker Xie MD [Primary Care Provider] - - My Orders Last 24 Hours: My Active Orders 03/14/17 10:09 EKG Documentation Completion [RC] STAT Sodium Chloride 0.9% [Normal Saline] 1,000 ml IV STAT 03/14/17 12:16 Admission Status [Patient Status] [ADT] Stat - Assessment/Plan Last 24 Hours: My Active Orders 03/14/17 10:09 EKG Documentation Completion [RC] STAT Sodium Chloride 0.9% [Normal Saline] 1,000 ml IV STAT 03/14/17 12:16 Admission Status [Patient Status] [ADT] Stat
[2017-03-14] MEDS ORDERED: Sodium Chloride 0.9% 1,000 ML IV ONE (10:09)
[2017-03-14] MEDS ORDERED: Ondansetron 4 MG/2 ML SDV IVPUSH ONE (10:09)
[2017-03-14 11:16] LABS: CHLORIDE,CL 100 mmol/L (98-110); SODIUM,NA 131 mmol/L (136-146)
--- NOTE | 2017-03-14 11:18 | CR ---
EXAMINATION: Portable chest radiograph. HISTORY: Fatigue. FINDINGS: The trachea is midline. The heart is normal in size. Vaguely increased right hilar prominence. Chroni c interstitial scarring and opacities are noted. No focal consolidation, pleural effusion, or pneumot horax. Left-sided pacemaker is noted. There is a right-sided portacatheter. Osseous structures appear unremarkable. IMPRESSION: 1. No acute cardiopulmonary findings. 2. Vaguely increased right hilar densities.
[2017-03-14] MEDS ORDERED: oxyCODONE 5 MG Tab PO PRN (13:43)
[2017-03-14] MEDS ORDERED: fentaNYL 25 MCG/HR Transdermal Patch TRDERM SCH (13:45)
--- NOTE | 2017-03-14 13:56 | PCM.HP ---
H&P History of Present Illness - History of Present Illness Initial Comments - Free Text/Narative: 76 yo male with pmh of metastatic renal cell cancer who last week had a palliative embolization to right renal mass to manage hemutira and blood loss. He has been struggling with abdominal pain and nausea. He presents to the ED with one day history of worsening nausea and vomiting with generalized weakness. stomach Pain Score (Numeric/FACES): 2 - Related Data Allergies/Adverse Reactions: Allergies Allergy/AdvReac Type Severity Reaction Status Date / Time No Known Allergies Allergy Verified 03/14/17 10:06 Home Medications: Home Meds Apixaban [Eliquis] 1 tab PO BID 01/08/17 [History] oxyCODONE 5 mg PO Q6HR PRN 01/08/17 [History] Docusate Sodium [Colace] 100 mg PO BID #60 cap 02/17/17 [Rx] fentaNYL [Duragesic] 25 mcg TRDERM Q72H #20 patch 02/17/17 [Rx] Dexamethasone 4 mg PO DAILY 03/14/17 [History] Dronabinol [Marinol] 2.5 mg PO BIDAC 03/14/17 [History] Metoprolol Tartrate 50 mg PO BIDMEALS 03/14/17 [History] Polyethylene Glycol 3350 [MiraLAX] 17 gm PO Q8H PRN 03/14/17 [History] Past Medical History HEENT History: Reports: Impaired Vision Other HEENT History: uses reading glasses Cardiovascular History: Reports: Blood Clots/VTE/DVT, High Cholesterol, Hypertension, Pacemaker Respiratory History: Reports: None Gastrointestinal History: Reports: Diverticulosis Genitourinary History: Reports: None Other Genitourinary History: 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 , in need of port for chemo Musculoskeletal History: Reports: Other (See Below) Other Musculoskeletal History: hip pain Neurological History: Reports: Other (See Below) Other Neuro History: hx of motion sickness Psychiatric History: Reports: None Endocrine/Metabolic History: Reports: None Hematologic History: Reports: None Immunologic History: Reports: None Oncologic (Cancer) History: Reports: Renal Other Oncologic History: current Dermatologic History: Reports: None - Infectious Disease History Infectious Disease History: Reports: Measles, Mumps - Past Surgical History Head Surgeries/Procedures: Reports: None HEENT Surgical History: Reports: None Other Cardiovascular Surgeries/Procedures: pacemaker placement & Family History - Family History Family Medical History: Noncontributory - Tobacco Use Smoking Status *Q: Never Smoker Second Hand Smoke Exposure: No - Caffeine Use Caffeine Use: Reports: Tea, Other Other Caffeine Use: gatorade - Alcohol Use Days Per Week of Alcohol Use: 0 - Recreational Drug Use Recreational Drug Use: No Drug Use in Last 12 Months: No H&P Review of Systems - Review of Systems: Review Of Systems: ROS reveals no pertinent complaints other than HPI. Exam - Exam Exam: See Below - Vital Signs Vital Signs: Last Vital Signs Temp 37.0 C 03/14/17 13:00 Pulse 63 03/14/17 13:00 Resp 18 03/14/17 13:00 BP 144/70 H 03/14/17 13:00 Pulse Ox 95 03/14/17 13:00 Weight: 64.6 kg - Exam General: Alert, Oriented, Other (chachectic) HEENT: Mucosa Moist & [place] Lungs: Clear to Auscultation, Normal Respiratory Effort Cardiovascular: Regular Rate, Regular Rhythm GI/Abdominal Exam: Soft, Non-Tender, No Distention Extremities: No Pedal Edema Skin: Warm, Dry, Intact - Patient Data Result Diagrams: 03/14/17 10:38 03/14/17 10:38 *Q Meaningful Use (ADM) - VTE *Q VTE Criteria *Q: VTE Anticoagulation Contraindications: Medical/Procedure Contrai - Stroke *Q Stroke Criteria *Q: - AMI *Q AMI Criteria *Q: Problem List Initiated/Reviewed/Updated: Yes Orders Last 24hrs: Active Orders 24 hr Category Date Time Status Antiembolic Devices [RC] PER UNIT ROUTINE Care 03/14/17 13:48 Ordered Oxygen Therapy [RC] PRN Care 03/14/17 13:46 Ordered Up ad Melia [RC] ASDIRECTED Care 03/14/17 13:46 Ordered VTE/DVT Education [RC] PER UNIT ROUTINE Care 03/14/17 13:46 Ordered Vital Signs [RC] Q4H Care 03/14/17 13:46 Ordered Clear Liquid Diet [DIET] Diet 03/14/17 Breakfast Ordered Abdomen Ltd [US] Routine Exams 03/14/17 13:50 Ordered CBC WITH AUTO DIFF [HEME] AM Lab 03/15/17 05:11 Ordered COMPREHENSIVE METABOLIC PN,CMP [CHEM] AM Lab 03/15/17 05:11 Ordered GAMMA GLUTAMYL TRANSFERASE,GGT [CHEM] Routine Lab 03/14/17 13:50 Ordered Dronabinol [Marinol] Med 03/14/17 17:00 Ordered 2.5 mg PO BIDAC Metoprolol Tartrate [Lopressor] Med 03/14/17 17:00 Ordered 50 mg PO BIDMEALS Ondansetron [Zofran] Med 03/14/17 13:46 Ordered 4 mg IVPUSH Q4H PRN Pantoprazole [ProTONIX IV] Med 03/14/17 14:00 Ordered 40 mg IV DAILY Promethazine [Phenergan] Med 03/14/17 13:46 Ordered 12.5 mg IM Q4H PRN Sodium Chloride 0.9% @ 125 MLS/HR (1,000ml) Med 03/14/17 13:45 Ordered Sodium Chloride 0.9% [Normal Saline] 1,000 ml IV ASDIRECTED fentaNYL [Duragesic] Med 03/14/17 13:45 Ordered 25 mcg TRDERM Q72H oxyCODONE Med 03/14/17 13:43 Ordered 5 mg PO Q6HR PRN Anticoagulation Contraindications VTE [AST] Per Unit Oth 03/14/17 13:46 Ordered Routine Sequential Compression Device [OM.PC] Per Unit Routine Oth 03/14/17 13:47 Ordered Medication Orders Dronabinol (Marinol) 2.5 mg PO BIDAC [place] Fentanyl (Duragesic) 25 mcg TRDERM Q72H [place] Sodium Chloride (Normal Saline) 1,000 mls @ 125 mls/hr IV ASDIRECTED [place] Metoprolol Tartrate (Lopressor) 50 mg PO BIDMEALS [place] Ondansetron HCl (Zofran) 4 mg IVPUSH Q4H PRN PRN Reason: Nausea Oxycodone HCl (Oxycodone) 5 mg PO Q6HR PRN PRN Reason: Pain Pantoprazole Sodium (Protonix Iv) 40 mg IV DAILY [place] Promethazine HCl (Phenergan) 12.5 mg IM Q4H PRN PRN Reason: Nausea/Vomiting Assessment/Plan Comment:: 76 yo male with pmh of metastatic renal celll cancer who presents with nausea and vomiting. Will treat supportively with IV fluids, and antiemetics. Due to elevated Alk phos and bilirubin will check abdominal ultrasound and GGT.
[2017-03-14] MEDS: Dronabinol 2.5 MG Cap PO SCH (16:13)
[2017-03-14] MEDS: Metoprolol Tartrate 50 MG Tab PO SCH (16:13)
[2017-03-14] MEDS: Pantoprazole 40 MG Vial IV SCH (16:13)
[2017-03-14] MEDS: Sodium Chloride 0.9% 1,000 ML IV SCH (16:21)
[2017-03-14] MEDS ORDERED: Magnesium Sulfate/Water 2 GM in Premix Bag 1 BAG IV ONE (17:44)
--- NOTE | 2017-03-14 17:45 | US ---
EXAMINATION: Right upper quadrant ultrasound HISTORY: Pain COMPARISON: CT dated 02/13/2017 TECHNIQUE: Grayscale, color Doppler, and spectral Doppler images obtained of the right upper quadrant . FINDINGS: The visualized pancreas appears normal. Liver has normal contour and echotexture without a focal hepatic mass. The right kidney is diffusely heterogeneous. There is a 7 x 4 cm mass superior to the right kidney, likely previously demonstrated adrenal nodularity. The gallbladder demonstrates a moderate amount of sludge with borderline gallbladder wall thickening. No immediate pericholecystic f luid or shadowing gallstones. The common bile duct measures 3 mm. The sonographic Stark sign is not reported. IMPRESSION: 1. Notably abnormal right kidney with perinephric masses consistent with previous CT findings and kno wn history of kidney cancer. 2. Gallbladder sludge without secondary signs of cholecystitis.
[2017-03-14] MEDS: Ondansetron 4 MG/2 ML SDV IVPUSH PRN (22:52)
[2017-03-15] MEDS: Sodium Chloride 0.9% 1,000 ML IV SCH (04:28)
[2017-03-15] MEDS ORDERED: fentaNYL 25 MCG/HR Transdermal Patch TRDERM SCH (09:00)
[2017-03-15] MEDS: Dronabinol 2.5 MG Cap PO SCH ×2 (14:46→16:59)
[2017-03-15] MEDS: Metoprolol Tartrate 50 MG Tab PO SCH ×2 (14:47→16:59)
[2017-03-15] MEDS: Pantoprazole 40 MG Vial IV SCH (14:53)
[2017-03-15 15:06] LABS: CHLORIDE,CL 102 mmol/L (98-110); SODIUM,NA 133 mmol/L (136-146)
[2017-03-15] MEDS ORDERED: traZODone 50 MG Tab PO ONE (18:50)
[2017-03-16] MEDS: Sodium Chloride 0.9% 1,000 ML IV SCH ×3 (03:11→22:21)
[2017-03-16] MEDS: Ondansetron 4 MG/2 ML SDV IVPUSH PRN ×2 (03:16→12:44)
[2017-03-16 06:07] LABS: CHLORIDE,CL 106 mmol/L (98-110); SODIUM,NA 134 mmol/L (136-146)
[2017-03-16] MEDS: Dronabinol 2.5 MG Cap PO SCH ×2 (06:42→17:04)
[2017-03-16] MEDS: Metoprolol Tartrate 50 MG Tab PO SCH ×2 (07:53→17:04)
[2017-03-16] MEDS: Pantoprazole 40 MG Vial IV SCH (08:06)
[2017-03-16] MEDS: Promethazine 25 MG/ML SDV IM PRN ×2 (08:06→17:04)
[2017-03-16] MEDS ORDERED: fentaNYL 25 MCG/HR Transdermal Patch TRDERM SCH ×2 (09:00→17:45)
[2017-03-17] MEDS: Dronabinol 2.5 MG Cap PO SCH ×2 (06:51→16:49)
[2017-03-17] MEDS: Pantoprazole 40 MG Vial IV SCH (08:13)
[2017-03-17] MEDS: Ondansetron 4 MG/2 ML SDV IVPUSH PRN (08:13)
[2017-03-17] MEDS: Metoprolol Tartrate 50 MG Tab PO SCH ×2 (08:13→16:49)
--- NOTE | 2017-03-17 08:15 | PCM.PN ---
- General Info Date of Service: 03/16/17 Subjective Update: Patient currently sedated due to Phenergan. Patients son and at bedside. State that his vomiting was not responding to Zofran 8 mg BID at home or to the Zofran he was receiving here. He received Phenergan recently which seems to have controlled the N/V. Functional Status: Reports: Pain Controlled - Review of Systems General: Reports: Weakness HEENT: Reports: No Symptoms Pulmonary: Reports: No Symptoms Cardiovascular: Reports: No Symptoms Gastrointestinal: Reports: Decreased Appetite, Nausea, Vomiting Genitourinary: Reports: No Symptoms Musculoskeletal: Reports: No Symptoms Skin: Reports: No Symptoms Neurological: Reports: No Symptoms Psychiatric: Reports: No Symptoms - Patient Data Vitals - Most Recent: Last Vital Signs Temp 36.9 C 03/17/17 04:00 Pulse 74 03/17/17 04:00 Resp 18 03/17/17 04:00 BP 118/66 03/17/17 04:00 Pulse Ox 96 03/17/17 04:00 Weight - Most Recent: 64.6 kg I&O - Last 24 Hours: Intake & Output 03/16/17 03/17/17 03/17/17 22:59 06:59 14:59 Intake Total 1698 1114 Output Total 450 Balance 1248 1114 Med Orders - Current: Current Medications Dronabinol (Marinol) 2.5 mg PO BIDAC [facility] Last Admin: 03/17/17 06:51 Dose: 2.5 mg Fentanyl (Duragesic) 25 mcg TRDERM Q72H [facility] Last Admin: 03/16/17 17:55 Dose: 25 mcg Sodium Chloride (Normal Saline) 1,000 mls @ 100 mls/hr IV ASDIRECTED [facility] Last Admin: 03/16/17 22:21 Dose: 100 mls/hr Metoprolol Tartrate (Lopressor) 50 mg PO BIDMEALS [facility] Last Admin: 03/16/17 17:04 Dose: 50 mg Ondansetron HCl (Zofran) 4 mg IVPUSH Q4H PRN PRN Reason: Nausea Last Admin: 03/16/17 12:44 Dose: 4 mg Oxycodone HCl (Oxycodone) 5 mg PO Q6HR PRN PRN Reason: Pain Pantoprazole Sodium (Protonix Iv) 40 mg IV DAILY [facility] Last Admin: 03/16/17 08:06 Dose: 40 mg Promethazine HCl (Phenergan) 12.5 mg IM Q4H PRN PRN Reason: Nausea/Vomiting Last Admin: 03/16/17 17:04 Dose: 12.5 mg Discontinued Medications Fentanyl (Duragesic) 25 mcg TRDERM Q72H [facility] Last Admin: 03/14/17 16:06 Dose: Not Given Fentanyl (Duragesic) 25 mcg TRDERM Q72H [place] Fentanyl (Duragesic) 25 mcg TRDERM Q72H [facility] Last Admin: 03/15/17 16:55 Dose: Not Given Sodium Chloride (Normal Saline) 1,000 mls @ 200 mls/hr IV STAT ONE Stop: 03/14/17 15:08 Last Admin: 03/14/17 11:15 Dose: 200 mls/hr Sodium Chloride (Normal Saline) 1,000 mls @ 125 mls/hr IV ASDIRECTED [facility] Last Admin: 03/15/17 04:28 Dose: 125 mls/hr Magnesium Sulfate 2 gm/ Premix 50 mls @ 50 mls/hr IV ONETIME ONE Stop: 03/14/17 18:43 Last Admin: 03/14/17 18:31 Dose: 50 mls/hr Ondansetron HCl (Zofran) 4 mg IVPUSH ONETIME ONE Stop: 03/14/17 10:10 Last Admin: 03/14/17 11:15 Dose: 4 mg Trazodone HCl (Trazodone) 50 mg PO BEDTIME ONE Stop: 03/15/17 18:51 Last Admin: 03/15/17 20:04 Dose: 50 mg - Exam General: Sedated Neck: Supple Lungs: Clear to Auscultation, Normal Respiratory Effort Cardiovascular: Regular Rate, Regular Rhythm GI/Abdominal Exam: Normal Bowel Sounds, Soft, No Distention Back Exam: Normal Inspection Extremities: Normal Inspection Skin: Intact Neurological: No New Focal Deficit - Problem List Review Problem List Initiated/Reviewed/Updated: Yes - Plan Plan:: 76 yo male with pmh of metastatic renal celll cancer on chemo therapy who presents with nausea and vomiting. Will treat supportively with IV fluids, and antiemetics. Due to elevated Alk phos and bilirubin Us was ordered which revealed GB sludge without cholecystitis. 1. Nausea/Vomiting -likely secondary to chemotherapy -continue Phenergan -consult for palliative care 2. Metastatic renal cell cancer -consult to hospice 3. GB Sludge -seen on US. Elevated Alk Phos, Total BR and ALT. Negative murphys sign -continue to monitor -treat nausea and vomiting
[2017-03-17] MEDS: Sodium Chloride 0.9% 1,000 ML IV SCH ×2 (08:17→16:56)
[2017-03-17 09:11] LABS: CHLORIDE,CL 107 mmol/L (98-110); SODIUM,NA 133 mmol/L (136-146)
[2017-03-17] MEDS: Promethazine 25 MG Tab PO PRN ×2 (12:25→16:55)
--- NOTE | 2017-03-17 19:08 | PCM.PN ---
- General Info Date of Service: 03/17/17 Subjective Update: no overnight events. patient still having nausea and vomiting. he reports 20% improvement with Phenergan vs Zofran. He states that today after receiving his pnenergan he had one episode of vomiting but then after vomiting he felt better. - Review of Systems General: Reports: No Symptoms HEENT: Reports: No Symptoms Pulmonary: Reports: No Symptoms Cardiovascular: Reports: No Symptoms Gastrointestinal: Reports: Nausea, Vomiting Genitourinary: Reports: No Symptoms Musculoskeletal: Reports: No Symptoms Skin: Reports: No Symptoms Neurological: Reports: No Symptoms Psychiatric: Reports: No Symptoms - Patient Data Vitals - Most Recent: Last Vital Signs Temp 35.9 C 03/17/17 16:00 Pulse 64 03/17/17 16:49 Resp 22 H 03/17/17 16:00 BP 127/68 03/17/17 16:49 Pulse Ox 97 03/17/17 16:00 Weight - Most Recent: 64.6 kg I&O - Last 24 Hours: Intake & Output 03/17/17 03/17/17 03/17/17 06:59 14:59 22:59 Intake Total 1114 168 Output Total 475 Balance 1114 -307 Lab Results Last 24 Hours: Laboratory Results - last 24 hr 03/17/17 03/17/17 03/17/17 Range/Units 08:27 08:27 08:27 WBC 7.61 (4.0-11.0) K/uL RBC 3.18 L (4.50-5.90) M/uL Hgb 8.5 L (13.0-17.0) g/dL Hct 26.9 L (38.0-50.0) % MCV 84.6 (80.0-98.0) fL MCH 26.7 L (27.0-32.0) pg MCHC 31.6 (31.0-37.0) g/dL RDW Std Deviation 50.5 (28.0-62.0) fl RDW Coeff of Bambi 16 H (11.0-15.0) % Plt Count 163 (150-400) K/uL MPV 9.30 (7.40-12.00) fL Add Manual Diff YES Neutrophils % (Manual) 88 H (48.0-80.0) % Band Neutrophils % 3 % Lymphocytes % (Manual) 5 L (16.0-40.0) % Monocytes % (Manual) 3 (0.0-15.0) % Eosinophils % (Manual) 1 (0.0-7.0) % Nucleated RBC % 0.0 /100WBC Absolute Seg Neuts 6.7 H (1.4-5.7) Band Neutrophils # 0.2 Lymphocytes # (Manual) 0.4 L (0.6-2.4) Monocytes # (Manual) 0.2 (0.0-0.8) Eosinophils # (Manual) 0.1 (0.0-0.7) Nucleated RBCs # 0 K/uL Anisocytosis 1+ SLIGHT Sodium 133 L (136-146) mmol/L Potassium 4.0 (3.5-5.1) mmol/L Chloride 107 (98-110) mmol/L Carbon Dioxide 19 L (21-31) mmol/L BUN 13 (6.0-23.0) mg/dL Creatinine 0.9 (0.6-1.5) mg/dL Est Cr Clr Drug Dosing 65.80 mL/min Estimated GFR (MDRD) > 60.0 ml/min Glucose 99 (60-110) mg/dL Calcium 7.6 L (8.8-10.8) mg/dL Magnesium 1.2 L (1.5-2.3) mEq/L Total Bilirubin 1.6 H (0.1-1.5) mg/dL AST 17 (5-40) IU/L ALT 44 (8-54) IU/L Alkaline Phosphatase 188 H (40-150) Total Protein 4.7 L (6.0-8.0) g/dL Albumin 2.4 L (3.4-4.8) g/dL Globulin 2.3 (2.0-3.5) g/dL Albumin/Globulin Ratio 1.0 L (1.3-2.8) Med Orders - Current: Current Medications Dronabinol (Marinol) 2.5 mg PO BIDAC [facility] Last Admin: 03/17/17 16:49 Dose: 2.5 mg Fentanyl (Duragesic) 25 mcg TRDERM Q72H [facility] Last Admin: 03/16/17 17:55 Dose: 25 mcg Sodium Chloride (Normal Saline) 1,000 mls @ 100 mls/hr IV ASDIRECTED [facility] Last Admin: 03/17/17 16:56 Dose: 100 mls/hr Metoprolol Tartrate (Lopressor) 50 mg PO BIDMEALS [facility] Last Admin: 03/17/17 16:49 Dose: 50 mg Oxycodone HCl (Oxycodone) 5 mg PO Q6HR PRN PRN Reason: Pain Pantoprazole Sodium (Protonix Iv) 40 mg IV DAILY [facility] Last Admin: 03/17/17 08:13 Dose: 40 mg Promethazine HCl (Phenergan) 25 mg PO Q4H PRN PRN Reason: Nausea/Vomiting Last Admin: 03/17/17 16:55 Dose: 25 mg Discontinued Medications Fentanyl (Duragesic) 25 mcg TRDERM Q72H [facility] Last Admin: 03/14/17 16:06 Dose: Not Given Fentanyl (Duragesic) 25 mcg TRDERM Q72H [place] Fentanyl (Duragesic) 25 mcg TRDERM Q72H [facility] Last Admin: 03/15/17 16:55 Dose: Not Given Sodium Chloride (Normal Saline) 1,000 mls @ 200 mls/hr IV STAT ONE Stop: 03/14/17 15:08 Last Admin: 03/14/17 11:15 Dose: 200 mls/hr Sodium Chloride (Normal Saline) 1,000 mls @ 125 mls/hr IV ASDIRECTED [facility] Last Admin: 03/15/17 04:28 Dose: 125 mls/hr Magnesium Sulfate 2 gm/ Premix 50 mls @ 50 mls/hr IV ONETIME ONE Stop: 03/14/17 18:43 Last Admin: 03/14/17 18:31 Dose: 50 mls/hr Ondansetron HCl (Zofran) 4 mg IVPUSH ONETIME ONE Stop: 03/14/17 10:10 Last Admin: 03/14/17 11:15 Dose: 4 mg Ondansetron HCl (Zofran) 4 mg IVPUSH Q4H PRN PRN Reason: Nausea Last Admin: 03/17/17 08:13 Dose: 4 mg Promethazine HCl (Phenergan) 12.5 mg IM Q4H PRN PRN Reason: Nausea/Vomiting Last Admin: 03/16/17 17:04 Dose: 12.5 mg Trazodone HCl (Trazodone) 50 mg PO BEDTIME ONE Stop: 03/15/17 18:51 Last Admin: 03/15/17 20:04 Dose: 50 mg - Exam General: Alert, Oriented HEENT: Pupils Equal, Pupils Reactive Neck: Supple Lungs: Clear to Auscultation, Normal Respiratory Effort Cardiovascular: Regular Rate, Regular Rhythm GI/Abdominal Exam: Normal Bowel Sounds, Soft, Non-Tender, No Distention Back Exam: Normal Inspection Extremities: Normal Inspection, Normal Capillary Refill Peripheral Pulses: 2+: Radial (L), Radial (R) Skin: Warm, Dry, Intact - Problem List Review Problem List Initiated/Reviewed/Updated: Yes - My Orders Last 24 Hours: My Active Orders 03/17/17 10:00 Promethazine [Phenergan] 25 mg PO Q4H PRN - Plan Plan:: 76 yo male with pmh of metastatic renal celll cancer on chemo therapy who presents with nausea and vomiting. He was previously taking Zofran but is no longer getting relief from it. Therefore will treat with alternate PO antiemetics to find one that patient may take at home 1. Nausea/Vomiting -likely secondary to chemotherapy -continue Phenergan PO -discharge home tomorrow if further improvement and patient comfortable to be care for self at home to decrease risk for re-admission 2. Metastatic renal cell cancer -palliative care was consulted and have accepted the patient once he is discharged 3. GB Sludge -seen on US. Elevated Alk Phos, Total BR and ALT. Negative murphys sign -continue to monitor -treat nausea and vomiting
[2017-03-18] MEDS: Sodium Chloride 0.9% 1,000 ML IV SCH (00:52)
[2017-03-18] MEDS: Dronabinol 2.5 MG Cap PO SCH (06:42)
[2017-03-18 08:32] VITALS: BP 126/62
[2017-03-18] MEDS: Promethazine 25 MG Tab PO PRN ×2 (09:35→13:16)
[2017-03-18] MEDS: Metoprolol Tartrate 50 MG Tab PO SCH (09:35)
[2017-03-18] MEDS: Pantoprazole 40 MG Vial IV SCH (09:35)
--- NOTE | 2017-03-18 10:19 | PCM.DCSUM1 ---
Discharge Summary - Hospital Course Free Text/Narrative:: 76 yo male with malignant renal cell ca admitted for nausea and vomiting. Patient was on Zofran 8 mg PO BID at home but states that it was not working. He is a poor historian and has difficulty qualifying and quantifying his symptoms but it seems like he was not taking zofran even if he had nausea or vomiting. In the hospital he responded well to Phenergan 25 mg tablet but it did cause drowsiness. Therefore patients regimen was changed to having his Zofran scheduled and Phenergan was added PRN for N/V. Hospice was also consulted and patient was accepted into program. He will be discharged back to his home where he lives with his . He sees Dr. Xie as his PCP and f/u should be scheduled within the next 1-2 weeks. He will be discharged home on Zofran 4mg PO [id number] scheduled & Phenergan 25 mg PO [id number] PRN for uncontrolled nausea vomiting. Patient and family was instructed to not take both medications together, if Zofran is not providing relief then he may substitute it with Phenergan. He was informed of side effects of medications. Patient and family acknowledge understanding and are in agreement with plan. - Discharge Data Discharge Date: 03/18/17 Discharge Disposition: DC/Tfer to Hospice - Home 50 Condition: Good - Patient Summary/Data Consults: Consultations 03/16/17 10:45 Consult to Hospice [CONS] Routine - Patient Instructions Diet: Regular Diet as Tolerated Activity: As Tolerated Driving: Do Not Drive (Do not drive while taking Phenergan ) Notify Provider of: Fever - Discharge Plan Prescriptions/Med Rec: Ondansetron [Zofran ODT] 4 mg PO Q6H 30 Days #120 tab.dis Promethazine [Phenergan] 25 mg PO Q4H PRN #120 tablet PRN Reason: Nausea/Vomiting Home Medications: Home Meds Apixaban [Eliquis] 1 tab PO BID 01/08/17 [History] oxyCODONE 5 mg PO Q6HR PRN 01/08/17 [History] Docusate Sodium [Colace] 100 mg PO BID #60 cap 02/17/17 [Rx] fentaNYL [Duragesic] 25 mcg TRDERM Q72H #20 patch 02/17/17 [Rx] Dexamethasone 4 mg PO DAILY 03/14/17 [History] Dronabinol [Marinol] 2.5 mg PO BIDAC 03/14/17 [History] Metoprolol Tartrate 50 mg PO BIDMEALS 03/14/17 [History] Polyethylene Glycol 3350 [MiraLAX] 17 gm PO Q8H PRN 03/14/17 [History] Ondansetron [Zofran ODT] 4 mg PO Q6H 30 Days #120 tab.dis 03/18/17 [Rx] Promethazine [Phenergan] 25 mg PO Q4H PRN #120 tablet 03/18/17 [Rx] Patient Handouts: Nausea, Adult Referrals: Booker Xie MD [Primary Care Provider] - 03/31/17 3:15 pm - Discharge Summary/Plan Comment DC Time >30 min.: No - General Info Subjective Update: no overnight events. nausea and vomiting resolved Functional Status: Reports: Pain Controlled, Tolerating Diet, Ambulating, Urinating - Review of Systems General: Reports: No Symptoms HEENT: Reports: No Symptoms Pulmonary: Reports: No Symptoms Cardiovascular: Reports: No Symptoms Gastrointestinal: Reports: No Symptoms Genitourinary: Reports: No Symptoms Musculoskeletal: Reports: No Symptoms Skin: Reports: No Symptoms Neurological: Reports: No Symptoms Psychiatric: Reports: No Symptoms - Patient Data Vitals - Most Recent: Last Vital Signs Temp 35.6 C 03/18/17 08:00 Pulse 65 03/18/17 09:35 Resp 20 03/18/17 08:00 BP 126/62 03/18/17 09:35 Pulse Ox 97 03/18/17 08:00 Weight - Most Recent: 64.6 kg I&O - Last 24 hours: Intake & Output 03/17/17 03/18/17 03/18/17 22:59 06:59 14:59 Intake Total 1404 1312 Output Total 475 Balance 929 1312 Lab Results - Last 24 hrs: Laboratory Results - last 24 hr 03/17/17 Range/Units 08:27 Magnesium 1.2 L (1.5-2.3) mEq/L Med Orders - Current: Current Medications Dronabinol (Marinol) 2.5 mg PO BIDAC [facility] Last Admin: 03/18/17 06:42 Dose: 2.5 mg Fentanyl (Duragesic) 25 mcg TRDERM Q72H [facility] Last Admin: 03/16/17 17:55 Dose: 25 mcg Sodium Chloride (Normal Saline) 1,000 mls @ 100 mls/hr IV ASDIRECTED [facility] Last Admin: 03/18/17 00:52 Dose: 100 mls/hr Metoprolol Tartrate (Lopressor) 50 mg PO BIDMEALS [facility] Last Admin: 03/18/17 09:35 Dose: 50 mg Oxycodone HCl (Oxycodone) 5 mg PO Q6HR PRN PRN Reason: Pain Pantoprazole Sodium (Protonix Iv) 40 mg IV DAILY [facility] Last Admin: 03/18/17 09:35 Dose: 40 mg Promethazine HCl (Phenergan) 25 mg PO Q4H PRN PRN Reason: Nausea/Vomiting Last Admin: 03/18/17 09:35 Dose: 25 mg Discontinued Medications Fentanyl (Duragesic) 25 mcg TRDERM Q72H [facility] Last Admin: 03/14/17 16:06 Dose: Not Given Fentanyl (Duragesic) 25 mcg TRDERM Q72H [facility] Fentanyl (Duragesic) 25 mcg TRDERM Q72H [facility] Last Admin: 03/15/17 16:55 Dose: Not Given Sodium Chloride (Normal Saline) 1,000 mls @ 200 mls/hr IV STAT ONE Stop: 03/14/17 15:08 Last Admin: 03/14/17 11:15 Dose: 200 mls/hr Sodium Chloride (Normal Saline) 1,000 mls @ 125 [facility]ls[facility] Last Admin: 03/15/17 04:28 Dose: 125 mls/hr Magnesium Sulfate 2 gm/ Premix 50 mls @ 50 mls/hr IV ONETIME ONE Stop: 03/14/17 18:43 Last Admin: 03/14/17 18:31 Dose: 50 mls/hr Ondansetron HCl (Zofran) 4 mg IVPUSH ONETIME ONE Stop: 03/14/17 10:10 Last Admin: 03/14/17 11:15 Dose: 4 mg Ondansetron HCl (Zofran) 4 mg IVPUSH Q4H PRN PRN Reason: Nausea Last Admin: 03/17/17 08:13 Dose: 4 mg Promethazine HCl (Phenergan) 12.5 mg IM Q4H PRN PRN Reason: Nausea/Vomiting Last Admin: 03/16/17 17:04 Dose: 12.5 mg Trazodone HCl (Trazodone) 50 mg PO BEDTIME ONE Stop: 03/15/17 18:51 Last Admin: 03/15/17 20:04 Dose: 50 mg - Exam General: Reports: Alert, Oriented, Cooperative, No Acute Distress HEENT: Reports: Pupils Equal, Pupils Reactive Lungs: Reports: Clear to Auscultation, Normal Respiratory Effort Cardiovascular: Reports: Regular Rate, Regular Rhythm GI/Abdominal Exam: Normal Bowel Sounds, Soft, Non-Tender Extremities: Normal Inspection, Normal Capillary Refill Skin: Reports: Intact Neurological: Reports: No New Focal Deficit Psy/Mental Status: Reports: Alert, Normal Affect, Normal Mood *Q Meaningful Use (DIS) - VTE *Q VTE Criteria *Q: VTE Anticoagulation Contraindications: Medical/Procedure Contrai - Stroke *Q Stroke Criteria *Q: - AMI *Q AMI Criteria *Q:
== END 2017-03-18 13:34 | disposition hospice, home (50) ==
LOC: MW.ED 09:49 → MW.ICU 12:56 → MW.MS 15:15
PROVIDERS: ADMIT Internal Medicine; ATTEND Internal Medicine
DX: R11.2 Nausea with vomiting, unspecified (principal); C64.9 Malignant neoplasm of unspecified kidney, except renal pelvis; K83.9 Disease of biliary tract, unspecified; I10 Essential (primary) hypertension; E78.00 Pure hypercholesterolemia, unspecified; Z95.0 Presence of cardiac pacemaker; Z79.899 Other long term (current) drug therapy
CPT/HCPCS: 36415; 71010; 76705; 80053; 82150; 82977; 83690; 83735; 84484; 85025; 87804; 93005; 96361; 96372; 96374; 96375; 96376; 99285; A9270; C9113; G0378; J2405; J2550; J3475; J7040; Q0167; 99284